=== PATIENT | male | born 1945 | race Caucasian/White ===

== ENCOUNTER 2016-09-15 14:24 | Observation (INO) ==
[2016-09-15] MEDS ORDERED: 0.9 % Sodium Chloride 500 ML IVC ONE ×2 (14:36→18:24)
[2016-09-15] MEDS ORDERED: Calcium Gluconate 1,000 MG in D5% in Water 100 ML IVPB ONE (14:40)
--- NOTE | 2016-09-15 14:46 | Emergency Department Note ---
Disposition Clinical Impression: Atrial fibrillation with rapid ventricular response, Cardiac pacemaker in situ , Hypomagnesemia, Neutrophilic leukocytosis Hypotension Qualifiers: Hypotension type: unspecified hypotension type Qualified Code(s): I95.9 - Hypotension, unspecified Chest pain Qualifiers: Chest pain type: unspecified Qualified Code(s): R07.9 - Chest pain, unspecified Chest pain Qualifiers: Chest pain type: unspecified Qualified Code(s): R07.9 - Chest pain, unspecified Hypotension Qualifiers: Hypotension type: unspecified hypotension type Qualified Code(s): I95.9 - Hypotension, unspecified Disposition: Admitted As Inpatient Condition: Fair Time of Disposition: 19:15 Arrhythmia/Palpitations HPI - General Chief Complaint: ED Chest Pain Stated Complaint: "afib" Time Seen by Provider: 09/15/16 14:35 Source: patient, EMS Mode of arrival: EMS Limitations: no limitations Nursing Notes Reviewed: Yes Vital Signs Reviewed: Yes - History of Present Illness HPI Narrative: 71-year-old male with past medical history of chronic atrial fibrillation with the pacemaker presents to the ED for chest pain and palpitations. This occurred this morning he woke up. 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 He normally takes metoprolol for rate control. From different sources it appears he has been without it today and possibly last night. He also takes Coumadin for anticoagulation however has been without it for the past few days due to a possible procedure for his back. He has associated shortness of breath, lightheadedness, nausea. He also reports having a cough over the past several days with rhinorrhea but no fever. Denies any history of stroke or blood clots. He follows with Dr. Jerez automotive worker foreman. Pt Subjective Complaint: rapid heart beat, "heart racing", palpitations Onset (ago): hour(s) Duration: constant Severity: moderate Context: occurred during rest, awoke with symptoms Arrhythmia History: atrial fibrillation, pacemaker, history of ablation Associated symptoms: Reports: denies other symptoms, chest pain, shortness of breath, near-syncope - Related Data Home Medications Medication Instructions Recorded Confirmed Aspirin 81 mg PO DAILY 06/27/16 09/15/16 Atorvastatin [Lipitor] 40 mg PO HS 06/27/16 09/15/16 Ferrous Sulfate [Iron] 325 mg PO DAILY 06/27/16 09/15/16 Pyridoxine HCl [Vitamin B-6] 25 mg PO DAILY 06/27/16 09/15/16 Warfarin Sodium [Warfarin Sodium] 5 mg PO SUTUTH 08/03/16 09/15/16 Pantoprazole Sodium [Protonix] 40 mg PO DAILY 09/15/16 09/15/16 Warfarin [Coumadin] 7.5 mg PO MOWEFRSA 09/15/16 09/15/16 Previous Rx's Medication Instructions Recorded Metoprolol [Lopressor] 100 mg PO BID #30 07/20/16 Diltiazem CD (24hr) [Cardizem CD] 120 mg PO DAILY #60 cap.er.24h 07/30/16 Allergies Allergy/AdvReac Type Severity Reaction Status Date / Time Sulfa (Sulfonamide Allergy Rash Verified 08/03/16 09:30 Antibiotics) All systems ED: reviewed and negative except as stated. Constitutional: Denies: fever, chills, weakness Cardiovascular: Reports: chest pain, palpitations, dyspnea on exertion Respiratory: Reports: cough, dyspnea Gastrointestinal: Reports: nausea. Denies: abdominal pain, vomiting, diarrhea, melena, hematochezia Genitourinary: Denies: urgency, dysuria Integumentary: Denies: rash, abrasion Past Medical History - Past Medical History Attestation: Yes The following information was validated with the patient. Source: patient Medical history: Reports: atrial fibrillation, COPD, CVA, hyperlipidemia, hypertension Surgical history: Reports: non-contributory, orthopedic, other, pacemaker/AICD Psychiatric history: Reports: no psych history - Social History Smoking Status: Current every day smoker Smokeless Tobacco Status: No Alcohol use: Reports: heavy Drug use: Reports: none Physical Exam - General Limitations: no limitations General appearance: alert, anxious - Head Head exam: atraumatic, normocephalic, normal inspection - Eye Eye exam: Present: normal appearance, PERRL, EOMI - ENT ENT exam: normal exam, normal oropharynx, mucous membranes dry - Neck Neck exam: Present: normal inspection, full ROM, trachea midline - Chest Chest inspection: Present: normal inspection, symmetric chest wall rise - Respiratory Respiratory exam: Present: normal lung sounds bilaterally, respiratory distress. Absent: wheezes - Cardiovascular Cardiovascular exam: Present: tachycardia, irregular rhythm, normal heart sounds - Abdominal Exam Abdominal exam: Present: soft, Non-Tender, normal bowel sounds. Absent: tenderness, distention, guarding, rebound, rigidity - Extremities Exam Extremities exam: Present: normal inspection, full ROM, normal capillary refill. Absent: tenderness, pedal edema, calf tenderness - Neurological Exam Neurological exam: Present: alert, oriented X3 - Psychiatric Psychiatric exam: Present: normal affect, normal mood - Skin Skin exam: Present: warm, dry, intact, normal color Course Course Narrative: 71-year-old male with a history of atrial fibrillation presents today EMS for chest pain palpitations. History of this more frequently 3 times last few months. He was found to be in atrial fibrillation with rapid ventricular response 173 bpm, he is hypotensive 96/76 but is mentating well. Reports not taking his rate control metoprolol and Cardizem yesterday and today. He also reports drinking a heavy amount of alcohol last night up to 12 beers. Denies any fevers but has been getting over a cold the past few days. A physical exam his heart is irregularly irregular. Lungs are clear to auscultation bilaterally. Legs are non-edematous. Will try to rate control him with Cardizem 20 mg bolus and start on a drip of 5 mg/hr as well as give a fluid bolus. Will give Calcium gluconate 1 g to help counteract the hypotensive effects with his current BP. He does not appear to be in acute heart failure. - Reevaluation(s) Reevaluation #1: Magnesium is low, will replete. He also has elevated WBC 23.4 without an obvious source. With the tachycardia and hypotension will initiate SIRS and get urine and blood cultures with lactate. He appears well perfused and will continue to give fluids. CXR does not reveal any infectious process, concern for opacity in the left lobe called as atelectasis. Time: 16:53 Reevaluation #2: We attempted to uptritate Cardizem to 10 mg/hr due to the sustained HR 160-180s , however, after a total of 1.5-2L he continues to be hypotensive as low as 79/ 68 now, will cut back to 5 mg/hr and consult cardiology Dr. Jerez, who is also his automotive worker foreman. Last ECHO 07/29/16 EF 55%. He has had a total of 1.5 L Normal saline and likely 2 L with additional to medications and magnesium. Lactate 1.4. CXR did not reveal any infectious pulmonary process. Will hold on antibiotics. Continue to fluid resuscitate Time: 17:42 Reevaluation #3: After an additional 1L bolus for almost a total of 3+L, his BP has gradual risen to 129/90, will uptitrate accordingly, HR now at 140-150. Currently drip is at 10 mg/hr. Patient admitted to hospitalist. He appears much improved with better BP control, fluids, and food as he has not eaten all day. Time: 19:13 - Consultations Consultation #1: Spoke to the automotive worker foreman Dr. Jerez, discuss the current situation with the patient. He continues to be tachycardic and the 170s with his blood pressure ranging from 90s to 70s systolic after IV fluid boluses in conjunction with Cardizem bolus of 20 mg and a drip going from 5 to 10 and back to 5 due to hypotension 79-68. I discussed the possibility of cardioversion but he recommends rate controlling with max Cardizem up to 15 mg/hr and then possibly adding Amiodarone. I reiterated the hypotension and he states to give Cardizem and longer chance. Time: 18:05 Consultation #2: Spoke with trena Oliver to admit for Afib c RVR. He is aware of patient's hemodynamics. Time: 19:14 Vital Signs Temperature 98.7 F 09/15/16 14:28 Pulse Rate 183 09/15/16 14:28 Respiratory Rate 22 09/15/16 14:28 Blood Pressure 96/76 09/15/16 14:28 O2 Sat by Pulse Oximetry 95 09/15/16 14:28 Temperature 98.7 F 09/15/16 14:28 Pulse Rate 157 09/15/16 19:30 Respiratory Rate 18 09/15/16 19:30 Blood Pressure 110/92 09/15/16 19:30 O2 Sat by Pulse Oximetry 95 09/15/16 19:30 Oxygen Delivery Oxygen Delivery Room Air Arrhythmia/Palpitations - Medical Records Medical records reviewed: Yes I reviewed the patient's medical records. - Lab Data Lab results reviewed: Yes I reviewed the patient's lab results. Result diagrams: 09/15/16 15:42 09/15/16 15:16 Lab Results 02/09/15/16 09/15/16 Range/Units 15:16 15:16 15:42 WBC 23.4 H (4.3-11.1) K/mcL RBC 4.11 L (4.19-5.50) M/mcL Hgb 11.2 L (12.9-16.9) g/dL Hct 34.3 L (37.5-50.1) % MCV 83.5 (83.0-100.0) fL MCH 27.3 L (28.0-33.3) pg MCHC 32.7 (31.6-35.5) g/dL RDW 20.9 H (11.5-14.5) % Plt Count 197 (140-400) K/mcL MPV 9.1 L (9.4-12.4) fL Seg Neutrophils % 40.0 % Band Neutrophils % 38.0 H (0-4) % Lymphocytes % 14.0 % Monocytes % 8.0 % Neutrophils # 18.3 H (1.6-8.9) K/mcL Lymphocytes # 3.3 (0.6-4.6) K/mcL Monocytes # 1.9 H (0.0-1.3) K/mcL Platelet Estimate Normal (Normal) PT (9.4-12.1) Seconds INR APTT (26.0-36.0) Seconds Sodium 137 (136-145) mEq/L Potassium 3.5 (3.5-4.5) mEq/L Chloride 108 (98-109) mEq/L Carbon Dioxide 20 (19-29) mEq/L BUN 12 (8-26) mg/dL Creatinine 0.70 L (0.72-1.25) mg/dL Est GFR ( Amer) > 60 (> 60) Est GFR (Non-Af Amer) > 60 (> 60) BUN/Creatinine Ratio 17 (6-26) Glucose 109 H (70-99) mg/dL Calculated Osmolality 284 (280-300) Lactic Acid (0.5-2.2) mmol/L Calcium 8.5 L (8.6-10.8) mg/dL Magnesium 1.2 L (1.6-2.6) mg/dL Troponin I 0.02 (0-0.03) ng/mL TSH 0.562 (0.350-4.840) mcIU/mL 02/16/17 02/16/17 Range/Units 15:42 17:59 WBC (4.3-11.1) K/mcL RBC (4.19-5.50) M/mcL Hgb (12.9-16.9) g/dL Hct (37.5-50.1) % MCV (83.0-100.0) fL MCH (28.0-33.3) pg MCHC (31.6-35.5) g/dL RDW (11.5-14.5) % Plt Count (140-400) K/mcL MPV (9.4-12.4) fL Seg Neutrophils % % Band Neutrophils % (0-4) % Lymphocytes % % Monocytes % % Neutrophils # (1.6-8.9) K/mcL Lymphocytes # (0.6-4.6) K/mcL Monocytes # (0.0-1.3) K/mcL Platelet Estimate (Normal) PT 19.6 H (9.4-12.1) Seconds INR 1.8 APTT 29.3 (26.0-36.0) Seconds Sodium (136-145) mEq/L Potassium (3.5-4.5) mEq/L Chloride (98-109) mEq/L Carbon Dioxide (19-29) mEq/L BUN (8-26) mg/dL Creatinine (0.72-1.25) mg/dL Est GFR ( Amer) (> 60) Est GFR (Non-Af Amer) (> 60) BUN/Creatinine Ratio (6-26) Glucose (70-99) mg/dL Calculated Osmolality (280-300) Lactic Acid 1.4 (0.5-2.2) mmol/L Calcium (8.6-10.8) mg/dL Magnesium (1.6-2.6) mg/dL Troponin I (0-0.03) ng/mL TSH (0.350-4.840) mcIU/mL - Radiology Data Radiology results reviewed: Yes I reviewed the patient's radiology results. Chest X-Ray 09/15/16 14:36 IMPRESSION: Bibasilar atelectasis. Otherwise no acute cardiopulmonary findings. D/ / Sarina Marquis MD / Sarina Marquis MD Interpreting Provider: Sarina Marquis MD - EKG Data EKG attestation: Yes I reviewed and interpreted this EKG. EKG results narrative: EKG performed 1430 shows atrial fibrillation with rapid ventricular response 193 bpm, there are some moderate ST depressions in the precordial leads V3-V6. Compared to old EKG performed 07/28/2016 shows underlying atrial flutter/atrial tachycardia rate 129. Attestation Statement - Attestation Attestation: I examined this patient and my medical decision-making was reviewed with the MEASUREMENT ANALYST/PA/Advanced Practice Nurse/Resident Physician. I agree with the documented findings, disposition and treatment plan as described except to the extent set forth below. 71-year-old male presents to the ED by EMS because of tachycardia. He has had palpitations since awaking this morning. This is associated with a vague chest discomfort and tightness. Denies associated resting dyspnea. He has had recent cold symptoms with mild nonproductive cough. No fevers, chills or rigors. No vomiting or diarrhea. No abdominal pain. He does have chronic low back pain and is in the process of being prepared for spinal injections. He has history of atrial fibrillation and normally takes Coumadin but has been off it for 2 days in preparation for the injections. Complains of mild exertional dyspnea. No other recent change in medications. He admits to drinking 12 beers last night. He does drink alcohol on a fairly regular basis. Pleasant elderly male in no apparent distress.Tachycardic. Heart rate is irregular. Oropharynx is clear mucous membranes dry. Neck supple without meningeal signs. Chest clear to auscultation all lung ashley. Cardiac exam tachycardic irregular no murmurs pursued. Chest wall nontender. Abdomen soft nondistended nontender. Flanks are nontender. Abdomen soft and nontender. Extremities well perfused, warm and dry. Mental status is intact. He has brisk perfusion of his digits. EKG is a atrial fibrillation with rapid ventricular response with a rate of 190. Chest x-ray with mild basilar atelectasis but no focal infiltrate. Significant leukocytosis with bandemia. No source of infection is identified, urinalysis still pending. He was given sequential IV fluid boluses of saline and started on Cardizem. Initial Cardizem was titrated up to 10 mg an hour result resulting in hypotension with blood pressure 79/60. This was confirmed by manual blood pressure. He dropped the Cardizem to 5 mg an hour and continue with further fluid. Ultimately after 3 L of crystalloid his blood pressure stabilized and able to titrate his Cardizem for better rate control. Continue with heart rate of 150 at the time of admission. Unable to explain the current leukocytosis. Still has no fever. He will be admitted to hospitalist for ongoing treatment and further evaluation. The high probability of a clinically significant, sudden or life threatening deterioration of the [cardiovascular] system(s) required my full and direct attention, intervention and personal management. The aggregate critical care time was [50] minutes. This time is in addition to time spent performing reported procedures but includes the following: [x] Data Review and interpretation [x] Patient assessment and monitoring of vital signs [x] Documentation [x] Medication orders and management
[2016-09-15 15:46] LABS: BUN/Creatinine Ratio 17 (6-26); Blood Urea Nitrogen 12 mg/dL (8-26); Calcium 8.5 mg/dL (8.6-10.8); Carbon Dioxide 20 mEq/L (19-29); Chloride 108 mEq/L (98-109); Glucose 109 mg/dL (70-99); Magnesium 1.2 mg/dL (1.6-2.6); Osmolality,Calculated 284 (280-300); Potassium 3.5 mEq/L (3.5-4.5); Sodium 137 mEq/L (136-145); eGFR For African Americans > 60 (> 60); eGFR For Non-African Americans > 60 (> 60)
[2016-09-15 16:08] LABS: Thyroid Stimulating Hormone 0.562 mcIU/mL (0.350-4.840)
[2016-09-15 16:27] LABS: Hematocrit 34.3 % (37.5-50.1); Hemoglobin 11.2 g/dL (12.9-16.9); Mean Corpuscular HGB Conc 32.7 g/dL (31.6-35.5); Mean Corpuscular Hemoglobin 27.3 pg (28.0-33.3); Mean Corpuscular Volume 83.5 fL (83.0-100.0); Mean Platelet Volume 9.1 fL (9.4-12.4); Platelet Count 197 K/mcL (140-400); Red Blood Count 4.11 M/mcL (4.19-5.50); Red Cell Distribution Width 20.9 % (11.5-14.5)
[2016-09-15 16:33] LABS: INR 1.8; Prothrombin Time 19.6 Seconds (9.4-12.1)
[2016-09-15 16:35] LABS: Activated Partial Thrombo Time 29.3 Seconds (26.0-36.0)
[2016-09-15 16:49] LABS: Lymphocytes # 3.3 K/mcL (0.6-4.6); Monocytes # 1.9 K/mcL (0.0-1.3); Neutrophils # 18.3 K/mcL (1.6-8.9); Platelet Estimate Normal (Normal)
[2016-09-15] MEDS ORDERED: 0.9 % Sodium Chloride 1,000 ML IVC ONE (16:58)
[2016-09-15 22:50] LABS: Bilirubin,Urine Negative (Negative); Blood,Urine Negative (Negative); Clarity,Urine Clear (Clear); Color,Urine Yellow (Yellow); Glucose,Urine (UA) Normal (Normal); Ketones,Urine Negative (Negative); Leukocyte Esterase,Urine Negative (Negative); Nitrite,Urine Negative (Negative); PH,Urine 6.5 pH Units (5.0-8.0); Protein,Urine Negative (Neg-Trace); Specific Gravity,Urine 1.015 (1.010-1.025); Urobilinogen,Urine Normal (Normal)
[2016-09-15] MEDS ORDERED: *HR* Metoprolol 5 MG/5 ML VIAL IVP ONE (23:25)
[2016-09-15] MEDS ORDERED: Naloxone 0.4 MG/ML INJ IVP PRN (23:55)
[2016-09-15] MEDS ORDERED: Acetaminophen 325 MG TABLET PO PRN (23:55)
[2016-09-15] MEDS ORDERED: Ondansetron 4 MG/2 ML VIAL IVP PRN (23:55)
[2016-09-16] MEDS: 0.9 % Sodium Chloride 1,000 ML IVC SCH ×3 (01:15→22:10)
[2016-09-16] MEDS: *HR* HYDROcodone/Acet 5/325 mg TABLET PO PRN ×2 (01:26→11:06)
--- NOTE | 2016-09-16 04:22 | Internal Med History&Physical ---
Date of Encounter: 09/16/16 Time of Encounter: 01:00 Assessment and Plan (1) Atrial flutter with rapid ventricular response Current visit: Yes Status: Acute The patient initially presented and atrial fibrillation with rapid ventricular response. After administration of IV Cardizem his weight changed to atrial flutter with fixed 2/1 transmission. At this point a consideration would be administering adenosine to decrease the conduction and possibly to slow down the ventricular rate. Another consideration would be adding a beta clarence. I have started IV metoprolol in addition to the diltiazem since the blood pressure was maintained around 126 systolic. After administration of IV metoprolol and increasing the Cardizem dosing to 15 mg per hour heart rate slowed down to 104 and therefore adenosine was not given. Blood pressure is on the low side however in the map is above 65. The cause of rapid ventricular response could be medication related. It appears the patient did not take his diltiazem for the last 2 days. We will reinforce the need for medication compliance. (2) Anticoagulated on Coumadin Current visit: Yes Status: Acute Resumed home dose of warfarin. start 1.5 mg/kg Lovenox dosing for bridging while the INR is 2.0. (3) Essential hypertension Current visit: Yes Status: Acute Resume oral antihypertensive medication per home regimen. (4) Atrial fibrillation with rapid ventricular response Current visit: Yes Status: Acute The patient initially presented with atrial fibrillation with rapid ventricular response. IV diltiazem as needed given. When I was examining the patient and the heart rate was still greater than 150. I increased diltiazem rate infusion to 15 mg and added IV metoprolol. Heart rate has not dropped below 100 between 90 and 100. The patient is currently chest pain-free. We will continue to trend troponins to rule out ACS as a possible cause or consequence of the very high ventricular rate. We will consult cardiology. Maintain the patient on telemetry. Obtain echocardiogram. The patient is unstable and there is high probability of significant clinical decompensation with potential impairment of organ function including cardiovascular and respiratory systems. I have performed 40 minutes of critical care time which involved decision making of high complexity to assess, manipulate, and support vital organ system, in order to prevent further life threatening deterioration of the patient's condition. The time involved in the performance of any procedures was not counted toward critical care time and will be billed separately. Critical care time was spent evaluating the patient, reviewing EKGs, telemetry tracing, imaging studies and laboratory data, ordering medications and reevaluating for clinical response after medication administration. (5) Hypomagnesemia Current visit: Yes Status: Acute Replete potassium and magnesium. Check and replete electrolytes in the morning. (6) Tobacco abuse Current visit: No Status: Chronic I have advised smoking cessation and provided counseling. Internal Medicine - H&P: HPI Chief complaint: Palpitations Admitted From: Emergency Dept Plans for Post Hospital Care: Home History of present illness: Mr. Kwok is a 71 year old male with past medical history significant for hypertension and atrial fibrillation on anticoagulation with Coumadin who presented to the hospital for chest pain. The patient reports that chest pain started earlier today, at rest was dull and moderate located in the left side of the chest and associated with palpitations and heart racing, lightheadedness and nausea. Upon evaluation in the emergency department his heart rate was up to 195. He was given IV Cardizem and was referred for admission. A 10 point review of systems was negative except as above Family history was negative for premature coronary artery disease and familial cancers. Patient congested smoke 1 pack of cigarettes a day, denies alcohol abuse and intravenous drug use. Past Med Surg Social Fam HX - Past Medical History Medical history: atrial fibrillation, COPD, CVA, hyperlipidemia, hypertension Psychiatric history: no psych history - Past Surgical History Surgical History: non-contributory, orthopedic, other, pacemaker/AICD - Social History Smoking Status: Current every day smoker Packs per day: 1 pk a day Smokeless Tobacco Status: No Alcohol use: heavy Drug use: none - Family History Mother Name: Mary Kwok Age: 64 Living Status: Age at : 64 Cause of : bowel rupture and gangrene set in and she didn't make it thru the night per Hx Family Endocrine Disorder: Yes Hx Family Medical Disorders: (bowel rupture and gangreen set in) Father Name: Phani Kwok Living Status: Age at : 82 Hx Family Cancer: Yes Hx Family Medical Disorders: Yes (alzheimer) Internal Medicine - H&P: Meds Aspirin 81 mg PO DAILY 06/27/16 [History] Atorvastatin [Lipitor] 40 mg PO HS 06/27/16 [History] Ferrous Sulfate [Iron] 325 mg PO DAILY 06/27/16 [History] Pyridoxine HCl [Vitamin B-6] 25 mg PO DAILY 06/27/16 [History] Metoprolol [Lopressor] 100 mg PO BID #30 07/20/16 [Rx] Diltiazem CD (24hr) [Cardizem CD] 120 mg PO DAILY #60 cap.er.24h 07/30/16 [Rx] Warfarin Sodium [Warfarin Sodium] 5 mg PO SUTUTH 08/03/16 [History] Pantoprazole Sodium [Protonix] 40 mg PO DAILY 09/15/16 [History] Warfarin [Coumadin] 7.5 mg PO MOWEFRSA 09/15/16 [History] Allergies Sulfa (Sulfonamide Antibiotics) Allergy (Verified 08/03/16 09:30) Rash All Systems PM: A 10-system review of systems was performed and is negative for pertinent findings except as documented above in the HPI. - Constitutional Vitals: Temp Pulse Resp BP Pulse Ox 97.9 F 88 18 130/68 93 L 09/16/16 04:02 09/16/16 04:02 09/16/16 04:02 09/16/16 04:02 09/16/16 04:02 - Eye Eye exam: Present: PERRL, conjuntiva pink, sclera anicteric Pupils: Present: PERRL - Neck Neck exam general surgery: Present: supple, trachea midline. Absent: lymphadenopathy - Respiratory Respiratory exam: Present: CTAB. Absent: accessory muscle use, rales, rhonchi, wheezes - Cardiovascular Cardiovascular exam: Present: irregular rhythm, +S1, +S2, tachycardia. Absent: diastolic murmur, gallop, rubs, systolic murmur - GI/Abdominal GI/Abdominal exam: Present: normal bowel sounds, soft, no peritoneal signs. Absent: distended, tenderness - Extremities Exam Extremities exam: Present: warm, radial pulses palpable and symetrical. Absent : calf tenderness, cyanotic, pedal edema - Skin Skin exam: Present: dry, intact Internal Med - H&P Results - Labs CBC & Chem 7: 09/15/16 15:42 09/15/16 15:16 Labs: Cardiac Enzymes 09/16/16 Range/Units 01:00 Troponin I 0.04 H* (0-0.03) ng/mL - EKG Data -: EKG Interpreted by Myself - Impressions Initial EKG, per my review shows atrial fibrillation with rapid ventricular response rate 196 and rate-related ST depressions diffusely. Repeat EKG after starting IV Cardizem drip shows atrial flutter 2/ transmission rate 150., Telemetry monitoring reveals stable atrial flutter with 2 to one transmission.
[2016-09-16] MEDS ORDERED: *HR* Warfarin 7.5 MG TABLET PO SCH (05:00)
[2016-09-16] MEDS: *HR* Enoxaparin 80 MG/0.8 ML SYRINGE SQ SCH ×2 (05:30→11:09)
[2016-09-16] MEDS ORDERED: *HR* Metoprolol 5 MG/5 ML VIAL IVP SCH (06:00)
[2016-09-16 06:50] LABS: Basophils % 0.1 %; Eosinophils # 0.2 K/mcL (0.0-0.6); Eosinophils % 1.1 %; Hematocrit 31.4 % (37.5-50.1); Hemoglobin 10.1 g/dL (12.9-16.9); Immature Granulocytes % 0.4 % (0-4); Immature Platelets 2.2 % (1.1-6.1); Lymphocytes # 2.6 K/mcL (0.6-4.6); Mean Corpuscular HGB Conc 32.2 g/dL (31.6-35.5); Mean Corpuscular Hemoglobin 26.6 pg (28.0-33.3); Mean Corpuscular Volume 82.6 fL (83.0-100.0); Mean Platelet Volume 8.9 fL (9.4-12.4); Monocytes # 0.6 K/mcL (0.0-1.3); Monocytes % 4.4 %; Neutrophils # 10.1 K/mcL (1.6-8.9); Platelet Count 195 K/mcL (140-400); Red Cell Distribution Width 21.2 % (11.5-14.5)
[2016-09-16 07:02] LABS: BUN/Creatinine Ratio 18 (6-26); Blood Urea Nitrogen 12 mg/dL (8-26); Calcium 8.4 mg/dL (8.6-10.8); Carbon Dioxide 25 mEq/L (19-29); Chloride 108 mEq/L (98-109); Chol/HDL Ratio 2.7 (0-4.9); Cholesterol 109 mg/dL (< 200); Glucose 94 mg/dL (70-99); HDL Cholesterol 40 mg/dL (40-59); LDL Cholesterol,Calculated 60 mg/dL (0-99); Magnesium 1.6 mg/dL (1.6-2.6); Osmolality,Calculated 288 (280-300); Potassium 3.7 mEq/L (3.5-4.5); Sodium 139 mEq/L (136-145); Triglycerides 47 mg/dL (< 150); eGFR For African Americans > 60 (> 60); eGFR For Non-African Americans > 60 (> 60)
[2016-09-16] MEDS: Aspirin 81 MG TAB.CHEW PO SCH (09:04)
[2016-09-16] MEDS: Pantoprazole 40 MG VIAL IVP SCH (09:04)
--- NOTE | 2016-09-16 09:58 | Cardiology Consult Note ---
<Cayden Baker R - Last Filed: 09/16/16 11:07> Date of Encounter: 09/16/16 Time of Encounter: 09:54 Assessment and Plan (1) Atrial fib/flutter, transient Current Visit: Yes Status: Acute Known hx of PAF. Per pt, had ablation in the past at [facility]. Yesterday pt experienced left sided chest pain, dyspnea, palpitations, nausea, lightheadedness. Presented to ED and found to be in A-Fib RVR rate 190s on EKG. Given IV cardizem and reportedly went into 2:1 A-Flutter and scheduled IV Lopressor was ordered to help with rate control. Pt has been PAF overnight, but currently in A -Fib rates 80s-low 100s on Cardizem gtt at 10mg/hr. Home meds included Lopressor 100mg BID and Cardizem CD 120mg daily. Will increase PO Cardizem to 240mg daily and wean off gtt. Mag 1.2 on admission, replaced and now 1.6. Will replace to get closer to 2.0. TSH and K within normal range. Outpt encounter with EP, Dr. Saran Jerez reviewed from 07/2016--if recurrence of PAF, recommended antiarrhythmic initiation. Anticoaguated on Coumadin, INR 1.8. Coumadin has been on hold for 2 days due to upcoming spinal injections 09/21, which requires pt to be off anticoagulation for 7 days. Given his upcoming spinal injections and needing to be off anticoagulation, recommend rate control strategy for the time being then follow-up with Dr. Saran Jerez as outpt in 2 weeks to discuss stress test and direct admission for antiarrhythmic therapy. Continue to follow. Recent echo 06/2016 EF 55%. (2) Anticoagulated on Coumadin Current Visit: Yes Status: Acute INR 1.8--currently Coumadin on hold due to upcoming spinal injections 09/21. On therapeutic Lovenox. (3) Cardiac pacemaker in situ Current Visit: Yes Status: Chronic Last interrogation 09/08/16 showing PAF. (4) Tobacco abuse Current Visit: No Status: Chronic Smoking cessation counseling given. Discussion w patient/family: The assessment and plan as outlined above was discussed with the patient and/or family members who expressed understanding and agreement. All questions were answered. Thank you for involving us in the care of your patient. Please call with any questions. I will discuss all the above with Dr. Martinez and make changes as necessary. History of Present Illness Consult date: 09/16/16 Requesting physician: Terry Veloz Consult reason: A-Fib RVR Chief complaint: Dizziness/lightheadedness History of present illness: Mr. Kwok is a 71 year old male with PMH significant for hypertension, CVA and Paroxysmal A-Fib with hx of ablation s/p PPM anticoagulated kn Coumadin who presented to the hospital for chest pain, dizziness and lightheadedness. The patient reports that chest pain started yesterday, located in the left side of the chest and associated with palpitations and heart racing, lightheadedness and nausea. Upon evaluation in the emergency department his heart rate was up to 195. He was given IV Cardizem and admitted. Reportedly went into 2:1 Flutter after Cardizem. Was given IV Lopressor. Is currently on cardizem gtt at 10mg/hr, still with frequent PAF. HR 90s-low 100s. Mag was 1.2 on admission, now 1.6 after replacement. K 3.7, TSH 0.562. WBC was 23.4 on admission, 13.4 today. CXR and UA negative. Troponins 0.02, 0.04, 0.03. Chest pain free currently. No known hx of CAD. Negative stress test in 2011. Preserved EF on echo 2015. Last seen by Dr. Jerez 07/2016 at which time antiarrhythmic therapy was discussed if recurrence of PAF. Coumadin has been held for 2 days due to upcoming spinal injections scheduled with Dr. Muir. Past Med Surg Social Fam HX - Past Medical History Medical history: atrial fibrillation, COPD, CVA, hyperlipidemia, hypertension Psychiatric history: no psych history - Past Surgical History Surgical History: non-contributory, orthopedic, other, pacemaker/AICD - Social History Smoking Status: Current every day smoker Packs per day: 1 pk a day Smokeless Tobacco Status: No Alcohol use: heavy Drug use: none - Family History Mother Name: Mary Kwok Age: 64 Living Status: Age at : 64 Cause of : bowel rupture and gangrene set in and she didn't make it thru the night per Hx Family Endocrine Disorder: Yes Hx Family Medical Disorders: (bowel rupture and gangreen set in) Father Name: Phain Kwok Living Status: Age at : 82 Hx Family Cancer: Yes Hx Family Medical Disorders: Yes (alzheimer) Medications and Allergies Aspirin 81 mg PO DAILY 06/27/16 [History] Atorvastatin [Lipitor] 40 mg PO HS 06/27/16 [History] Ferrous Sulfate [Iron] 325 mg PO DAILY 06/27/16 [History] Pyridoxine HCl [Vitamin B-6] 25 mg PO DAILY 06/27/16 [History] Metoprolol [Lopressor] 100 mg PO BID #30 07/20/16 [Rx] Diltiazem CD (24hr) [Cardizem CD] 120 mg PO DAILY #60 cap.er.24h 07/30/16 [Rx] Warfarin Sodium [Warfarin Sodium] 5 mg PO SUTUTH 08/03/16 [History] Pantoprazole Sodium [Protonix] 40 mg PO DAILY 09/15/16 [History] Warfarin [Coumadin] 7.5 mg PO MOWEFRSA 09/15/16 [History] Allergies Sulfa (Sulfonamide Antibiotics) Allergy (Verified 08/03/16 09:30) Rash All Systems Review: A 10-system review of systems was performed and is negative for pertinent findings except as documented above in the HPI. - Cardiovascular Cardiovascular: as per HPI, chest pain at rest, dyspnea on exertion, irregular heart rhythm, lightheadedness, palpitations, rapid heart rate Physical Examination Vital Signs, Last 4 Hours Temp Pulse Resp BP Pulse Ox 09/16/16 08:10 98.2 F 91 14 107/85 95 Vital Signs Temp Pulse Resp BP Pulse Ox 09/16/16 08:10 98.2 F 91 14 107/85 95 09/16/16 05:30 83 103/57 95 09/16/16 05:15 81 125/67 09/16/16 05:00 76 106/66 09/16/16 04:02 97.9 F 88 18 130/68 93 L 09/16/16 02:22 98.0 F 102 18 125/84 95 09/15/16 22:55 115 105/66 09/15/16 22:40 151 119/77 09/15/16 22:25 128/97 09/15/16 22:23 156 128/97 98 09/15/16 21:50 95 09/15/16 21:29 98.2 F 154 15 101/72 97 09/15/16 20:10 18 110/92 09/15/16 19:30 157 18 110/92 95 09/15/16 19:00 150 18 129/90 97 09/15/16 18:36 149 18 114/86 99 09/15/16 17:53 153 18 98/78 96 09/15/16 17:30 153 18 98/78 95 09/15/16 17:00 159 18 104/85 95 09/15/16 16:41 148 18 104/69 96 09/15/16 16:30 160 18 96/73 96 09/15/16 16:00 158 18 104/85 96 09/15/16 15:31 159 18 102/92 93 L 09/15/16 15:01 127 18 109/72 92 L 09/15/16 14:43 188 18 96/76 96 09/15/16 14:39 97 09/15/16 14:28 98.7 F 183 22 96/76 95 Intake and Output 09/15/16 09/16/16 09/16/16 23:59 07:59 15:59 Intake Total 610 / 610 207.9 / 207.9 Output Total 290 / 290 1300 / 1300 Balance 320 / 320 -1092.1 / -1092.1 Intake: IV Fluids 610 / 610 207.9 / 207.9 0.9 % Sodium Chloride 500 500 / 500 ML @ 1875 mls/hr IVC . Q16M ONE Rx#:[id number] Cardizem 125 MG In 207.9 / 207.9 Dextrose 5% 100 ML @ 10 MG/HR 10 mls/hr IVC . [id number] [facility] Rx#: [id number] Calcium Gluconate 1,000 110 / 110 MG In Dextrose 5% 100 ML @ 220 mls/hr IVPB ONCE ONE Rx#:[id number] Oral 0 / 0 0 / 0 Output: Urine 290 / 290 1300 / 1300 Other: # Voids 0 Weight 79.2 kg General: Conversant, No Apparent Distress HEENT: Atraumatic, Normocephaly, Mucus Membranes Moist Neck: No JVD, Normal carotid pulses Cardiac: Other (irregularly irregular) Lungs: Normal Breath Sounds, No Wheeze, Rales, Rhonchi Neuro: Alert and responsive, No focal deficits noted Abdomen: Soft, Non-Tender Skin: No rashes noted on visualized skin Musculoskeletal: No Chest Wall Tenderness Extremities: No Clubbing, No Cyanosis, No Edema, Normal Pulses Results 09/16/16 06:25 09/16/16 06:25 Lab Results 09/16/16 09/16/16 09/16/16 01:00 06:25 06:25 WBC 13.4 H Hgb 10.1 L Hct 31.4 L Plt Count 195 Sodium 139 Potassium 3.7 Chloride 108 Carbon Dioxide 25 BUN 12 Creatinine 0.67 L Glucose 94 Calcium 8.4 L Magnesium 1.6 Troponin I 0.04 H* B-Natriuretic Peptide 09/16/16 09/16/16 06:25 06:25 WBC Hgb Hct Plt Count Sodium Potassium Chloride Carbon Dioxide BUN Creatinine Glucose Calcium Magnesium Troponin I 0.03 B-Natriuretic Peptide 341 H Impressions Chest X-Ray 09/15/16 14:36 IMPRESSION: Bibasilar atelectasis. Otherwise no acute cardiopulmonary findings. D/ / Sarina Marquis MD / Sarina Marquis MD Interpreting Provider: Sarina Marquis MD Active Medications Acetaminophen (Tylenol) 650 mg PO Q6HR PRN PRN Reason: Mild Pain (1-3) Stop: 03/17/17 23:56 Acetaminophen/Hydrocodone Bitart ([place] 5-325 Mg) 1 tab PO Q4HR PRN PRN Reason: Moderate Pain (4-6) Stop: 03/17/17 23:56 Last Admin: 09/16/16 01:26 Dose: 1 tab Aspirin (Aspirin) 81 mg PO DAILY [facility] Stop: 03/18/17 09:01 Last Admin: 09/16/16 09:04 Dose: 81 mg Enoxaparin Sodium (Lovenox) 80 mg 1 mg/kg (80 mg) SQ Q12HR [facility] PRN Reason: Protocol Stop: 03/18/17 06:01 Last Admin: 09/16/16 05:30 Dose: Not Given Diltiazem HCl 125 mg/ Dextrose 125 mls @ 10 mls/hr IVC .[id number] C[facility]IDA PRN Reason: 10 MG/HR Stop: 03/17/17 14:46 Last Infusion: 09/16/16 05:27 Dose: 10 mg/hr, 10 mls/hr Sodium Chloride (0.9 % Sodium Chloride) 1,000 mls @ 100 mls/hr IVC .Q10H C[facility]IDA Stop: 03/17/17 23:46 Last Admin: 09/16/16 01:15 Dose: 100 mls/hr Levofloxacin (Levaquin) 500 mg PO ONCE ONE PRN Reason: Protocol Stop: 09/16/16 10:12 Metoprolol Tartrate (Lopressor) 100 mg PO BID [facility] Stop: 03/18/17 09:46 Naloxone HCl (Narcan) 0.4 mg IVP Q2MIN PRN PRN Reason: Opioid Reversal Stop: 03/17/17 23:56 Ondansetron HCl (Zofran) 4 mg IVP Q8HR PRN PRN Reason: Nausea And Vomiting Stop: 03/17/17 23:56 Pantoprazole Sodium (Protonix) 40 mg IVP DAILY [facility] Stop: 03/18/17 09:01 Last Admin: 09/16/16 09:04 Dose: 40 mg Warfarin Sodium (Coumadin) 7.5 mg PO MOWEFRSA [facility] Stop: 03/18/17 05:01 Last Admin: 09/16/16 05:29 Dose: Not Given Warfarin Sodium (Coumadin) 5 mg PO SUTUTH [facility] Stop: 03/20/17 18:01 - Imaging and Cardiology Chest Xray: report reviewed Stress Test: report reviewed (2011 negative for ischemia or infarct) Echo: report reviewed (06/2016 EF 55%, no significant valvular dysfunction, mildly dilated left and right atrium.) - EKG Interpretation EKG results cardiology: personally reviewed (A-Fib rate 190s), other (24 hour tele AVG HR 102, PAF) Consult Discharge Plan - Plan Referrals: Cornelia Swanson MD [Primary Care Provider] - <Araceli Martinez - Last Filed: 09/16/16 11:18> Date of Encounter: 09/16/16 Assessment and Plan Discussion w patient/family: The assessment and plan as outlined above was discussed with the patient and/or family members who expressed understanding and agreement. All questions were answered. Thank you for involving us in the care of your patient. Please call with any questions. History of Present Illness History of present illness: Mr. Kwok is a 71 year old male All Systems Review: A 10-system review of systems was performed and is negative for pertinent findings except as documented above in the HPI. Physical Examination Vital Signs, Last 4 Hours Temp Pulse Resp BP Pulse Ox 09/16/16 08:10 98.2 F 91 14 107/85 95 Results 09/16/16 06:25 09/16/16 06:25 Lab Results 09/16/16 09/16/16 09/16/16 01:00 06:25 06:25 WBC 13.4 H Hgb 10.1 L Hct 31.4 L Plt Count 195 Sodium 139 Potassium 3.7 Chloride 108 Carbon Dioxide 25 BUN 12 Creatinine 0.67 L Glucose 94 Calcium 8.4 L Magnesium 1.6 Troponin I 0.04 H* B-Natriuretic Peptide 09/16/16 09/16/16 06:25 06:25 WBC Hgb Hct Plt Count Sodium Potassium Chloride Carbon Dioxide BUN Creatinine Glucose Calcium Magnesium Troponin I 0.03 B-Natriuretic Peptide 341 H - Attending Attestation I examined this patient and my medical decision-making was reviewed with the NEON TUBE PUMPER/PA/Advanced Practice Nurse/Resident Physician. I agree with the documented findings, disposition and treatment plan. Mr. Kwok presents with AF, RVR now with improved heart rate control. Antiarrhythmic therapy was recently discussed with his Dampener Operator as an outpatient and we discussed this as an option while hospitalized. However, he has an upcoming procedure, spinal injections and will be off of anticoagulation for this. We therefore recommend rate control for now. He will then follow up with Dr. Saran Jerez as an outpatient for further management.
[2016-09-16] MEDS ORDERED: levoFLOXacin 500 MG TABLET PO ONE (10:11)
--- NOTE | 2016-09-16 10:18 | Internal Med Progress Note ---
<Hayden Escobar - Last Filed: 09/16/16 13:45> Date of Encounter: 09/16/16 Time of Encounter: 10:18 - Assessment and plan (1) Chest pain Current Visit: Yes Status: Resolved Assessment and plan: 7-year-old male history of A. fib, CVA, hyperlipidemia, hypertension. Patient was found to be in A. fib RVR with rates in the 190s on EKG. He was started on IV Cardizem which decreased his rate below 100. However he continues to still be in paroxysmal A. fib. Patient's chest pain, nausea, dyspnea resolved. His troponins were trended and found to be normal. Recent echo on June 2016 shows EF of 55%. Patient also presented with magnesium 1.2 which is being replaced. Furthermore his TSH and potassium were within normal limits. His lipid panel shows LDL cholesterol to be 60. Chest pain was most likely secondary to A. fib RVR. After rate was controlled his chest pain resolved. Cardiology is on board. Appreciate input. Patient is scheduled for stress test. Qualifiers: Chest pain type: unspecified Qualified Code(s): R07.9 - Chest pain, unspecified (2) Leukocytosis Current Visit: Yes Status: Acute Assessment and plan: Patient came in with white blood cell count 22. He denied any fevers chills at home. On physical exam there is no sign of infection of the skin. He did state he had a cold and productive cough. Urinalysis was negative for infection. Furthermore he had bandemia of 38%. His leukocytosis could partially be explained by stress reaction, however with such a high white blood cell count there may be a second infectious process. Both cultures have been ordered. Currently patient is being treated with Levaquin for possible acquired pneumonia. Furthermore patient has been checked for influenza. Results pending. Qualifiers: Leukocytosis type: bandemia Qualified Code(s): D72.825 - Bandemia (3) Community acquired pneumonia Current Visit: Yes Status: Suspected Assessment and plan: Regular treating patient with Levaquin as he stated this for admission having productive cough and upper respiratory tract infection. Patient has white blood cell count of 13.4. This is decreased from yesterday. If blood cultures are negative we will discontinue antibiotics. Repeat CBC tomorrow. (4) Atrial fibrillation with rapid ventricular response Current Visit: Yes Status: Resolved Assessment and plan: While patient continues to be in a proximal A. fib, his heart rate is below 100. Heart rate was controlled by Cardizem drip. He was transitioned to by mouth Cardizem and metoprolol. Patient is not on Coumadin currently due to scheduled spinal injections on 09/21. He is being anticoagulated with therapeutic Lovenox. (5) Essential hypertension Current Visit: Yes Status: Acute Assessment and plan: Patient's blood pressure has been stable. We will continue his metoprolol diltiazem. (6) Hypomagnesemia Current Visit: Yes Status: Acute Assessment and plan: On presentation patient's magnesium was 1.2. Today patient's magnesium 1.6. His potassium has been within normal limits. We will continue to follow. (7) DVT prophylaxis Current Visit: No Status: Acute Assessment and plan: Lovenox SQ (8) Hyperlipidemia Current Visit: No Status: Chronic Assessment and plan: Continue patient's on simvastatin. Patient's LDL is 60. He is at his goal of below 70. Qualifiers: Hyperlipidemia type: unspecified Qualified Code(s): E78.5 - Hyperlipidemia , unspecified - Subjective Interval history: 71-year-old male with past medical history of hypertension, CVA, paroxysmal A. fib with history of ablation, anticoagulated on Coumadin, admitted to the hospital for A. fib RVR and chest pain. His chest pain was left-sided associated with nausea, vomiting. This morning patient is on Cardizem running at 10 mg an hour with a heart rate below 100. He reports improvement in chest pain, nausea, vomiting. His EKG did not show any ischemic changes. And all 3 troponins were normal. - Constitutional Vitals: Temp Pulse Resp BP Pulse Ox 98.2 F 91 14 107/85 95 09/16/16 08:10 09/16/16 08:10 09/16/16 08:10 09/16/16 08:10 09/16/16 08:10 - Head Head exam: Present: atraumatic, normocephalic - Eye Eye exam: Present: PERRL, conjuntiva pink, sclera anicteric - Neck Neck exam general surgery: Present: supple, trachea midline. Absent: lymphadenopathy - Respiratory Respiratory exam: Present: CTAB. Absent: accessory muscle use, rales, rhonchi, wheezes - Cardiovascular Cardiovascular exam: Present: irregular rhythm, +S1, +S2. Absent: diastolic murmur, gallop, rubs, systolic murmur - GI/Abdominal GI/Abdominal exam: Present: normal bowel sounds, soft, no peritoneal signs. Absent: distended, tenderness - Extremities Exam Extremities exam: Present: warm, radial pulses palpable and symetrical. Absent : calf tenderness, cyanotic, pedal edema - Neurological Exam Neurological exam: Present: CN II-XII intact, oriented X3, no focal deficits. Absent: pronater drift, facial droop, speech deficit - Skin Skin exam: Present: dry, intact Internal Medicine: Result - Labs CBC & Chem 7: 09/16/16 06:25 09/16/16 06:25 Labs: Short CBC 09/16/16 Range/Units 06:25 WBC 13.4 H (4.3-11.1) K/mcL Hgb 10.1 L (12.9-16.9) g/dL Hct 31.4 L (37.5-50.1) % Plt Count 195 (140-400) K/mcL Neutrophils # 10.1 H (1.6-8.9) K/mcL BMP 09/16/16 06:25 Sodium 139 Potassium 3.7 Chloride 108 Carbon Dioxide 25 BUN 12 Creatinine 0.67 L Glucose 94 Calcium 8.4 L Cardiac Enzymes 09/16/16 09/16/16 Range/Units 01:00 06:25 Troponin I 0.04 H* 0.03 (0-0.03) ng/mL - ABG Interpretation ABG results: PT/INR, D-dimer PT 19.6 Seconds (9.4-12.1) H 09/15/16 15:42 Consult Discharge Plan - Plan Referrals: Cornelia Swanson MD [Primary Care Provider] - <Serjio Damon - Last Filed: 09/16/16 15:42> Date of Encounter: 09/16/16 - Constitutional Vitals: Temp Pulse Resp BP Pulse Ox 97.5 F L 86 12 112/78 93 L 09/16/16 11:30 09/16/16 11:30 09/16/16 11:30 09/16/16 11:30 09/16/16 11:30 Internal Medicine: Result - Labs CBC & Chem 7: 09/16/16 06:25 09/16/16 06:25 Labs: Short CBC 09/16/16 Range/Units 06:25 WBC 13.4 H (4.3-11.1) K/mcL Hgb 10.1 L (12.9-16.9) g/dL Hct 31.4 L (37.5-50.1) % Plt Count 195 (140-400) K/mcL Neutrophils # 10.1 H (1.6-8.9) K/mcL BMP 09/16/16 06:25 Sodium 139 Potassium 3.7 Chloride 108 Carbon Dioxide 25 BUN 12 Creatinine 0.67 L Glucose 94 Calcium 8.4 L Cardiac Enzymes 09/16/16 09/16/16 Range/Units 01:00 06:25 Troponin I 0.04 H* 0.03 (0-0.03) ng/mL Urine 09/15/16 Range/Units 22:30 Urine Color Yellow (Yellow) Urine Clarity Clear (Clear) Urine pH 6.5 (5.0-8.0) pH Units Ur Specific [place] 1.015 (1.010-1.025) Urine Protein Negative (Neg-Trace) mg/dL Urine Glucose (UA) Normal (Normal) mg/dL - ABG Interpretation ABG results: PT/INR, D-dimer PT 19.6 Seconds (9.4-12.1) H 09/15/16 15:42 - Attending Attestation I examined this patient and my medical decision-making was reviewed with the Resident Physician on 09/16/16. I agree with the documented findings, disposition and treatment plan as described except to the extent set forth below. Mr. Kwok is currently in observation for chest pain. Mr. Kwok is to have his stress test tomorrow. No further pain. Heart rate controlled at this time. Exam Alert. Comfortable Heart reg No wheeze No edema I/P 1. Chest pain - stress tomorrow 2. Leukocytosis - ? bronchitis versus other. Levaquin given 3. A fib with RVR Further diagnoses and plan as above.
[2016-09-16] MEDS: Metoprolol 100 MG TABLET PO SCH ×2 (11:06→22:01)
[2016-09-16] MEDS: Diltiazem CD (24hr) 240 MG CAPSULE PO SCH (14:06)
[2016-09-16] MEDS ORDERED: Magnesium Sulfate 2 GM in D5% in Water 100 ML IVPB ONE (14:23)
--- NOTE | 2016-09-16 15:45 | Event Note ---
Date of Encounter: 09/16/16 Time of Encounter: 15:43 - Cardiology Event Note Pt now in SR on PO cardizem CD 240mg daily and Lopressor 100mg BID. Off cardizem gtt. Cardiology is signing off. Initially planned for stress test prior to starting antiarrhythmics, but will defer stress test and antiarrhythmic initiation to outpt setting given pt is having back injections in upcoming days. His chest pain was likely secondary to his A-Fib with RVR. Follow-up in [address] Saran Jerez as planned.
--- NOTE | 2016-09-16 17:16 | Electrocardiograph Report ---
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
--- NOTE | 2016-09-16 17:34 | Electrocardiograph Report ---
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
[2016-09-16] MEDS ORDERED: *HR* Enoxaparin 80 MG/0.8 ML SYRINGE SQ SCH (23:00)
[2016-09-17] MEDS: *HR* HYDROcodone/Acet 5/325 mg TABLET PO PRN ×2 (01:36→06:59)
[2016-09-17 05:26] LABS: Basophils % 0.1 %; Eosinophils # 0.2 K/mcL (0.0-0.6); Eosinophils % 2.4 %; Hematocrit 29.6 % (37.5-50.1); Immature Granulocytes % 0.5 % (0-4); Lymphocytes # 2.4 K/mcL (0.6-4.6); Lymphocytes % 24.4 %; Mean Corpuscular HGB Conc 32.1 g/dL (31.6-35.5); Mean Corpuscular Hemoglobin 27.4 pg (28.0-33.3); Mean Corpuscular Volume 85.3 fL (83.0-100.0); Mean Platelet Volume 8.9 fL (9.4-12.4); Monocytes # 0.6 K/mcL (0.0-1.3); Monocytes % 5.8 %; Neutrophils # 6.5 K/mcL (1.6-8.9); Platelet Count 164 K/mcL (140-400); Red Blood Count 3.47 M/mcL (4.19-5.50); Red Cell Distribution Width 21.6 % (11.5-14.5); Segmented Neutrophils % 66.8 %
[2016-09-17 05:31] LABS: INR 1.2; Prothrombin Time 13.2 Seconds (9.4-12.1)
[2016-09-17 05:32] LABS: Hemoglobin 9.5 g/dL (12.9-16.9)
[2016-09-17 05:45] LABS: BUN/Creatinine Ratio 16 (6-26); Blood Urea Nitrogen 11 mg/dL (8-26); Calcium 8.1 mg/dL (8.6-10.8); Carbon Dioxide 19 mEq/L (19-29); Chloride 109 mEq/L (98-109); Glucose 86 mg/dL (70-99); Osmolality,Calculated 281 (280-300); Potassium 3.8 mEq/L (3.5-4.5); Sodium 136 mEq/L (136-145); eGFR For African Americans > 60 (> 60); eGFR For Non-African Americans > 60 (> 60)
[2016-09-17 07:03] VITALS: BP 134/89
[2016-09-17] MEDS: Metoprolol 100 MG TABLET PO SCH (08:23)
[2016-09-17] MEDS: Aspirin 81 MG TAB.CHEW PO SCH (08:23)
[2016-09-17] MEDS: Pantoprazole 40 MG VIAL IVP SCH (08:23)
[2016-09-17] MEDS: Diltiazem CD (24hr) 240 MG CAPSULE PO SCH (08:23)
[2016-09-17] MEDS: 0.9 % Sodium Chloride 1,000 ML IVC SCH (08:24)
[2016-09-17] MEDS ORDERED: *HR* Enoxaparin 40 MG/0.4 ML SYRINGE SQ ONE (08:36)
--- NOTE | 2016-09-17 08:39 | Discharge Summary ---
Date of Encounter: 09/17/16 Time of Encounter: 08:37 - Discharge Diagnosis (1) Atrial flutter Priority: Primary Status: Acute Qualifiers: Atrial flutter type: typical Qualified Code(s): I48.3 - Typical atrial flutter (2) Essential hypertension Priority: Secondary Status: Acute (3) Hypomagnesemia Priority: Secondary Status: Resolved (4) Chest pain Priority: Secondary Status: Acute Qualifiers: Chest pain type: precordial pain Qualified Code(s): R07.2 - Precordial pain (5) COPD (chronic obstructive pulmonary disease) Priority: Secondary Status: Chronic Qualifiers: COPD type: emphysema Emphysema type: panlobular Qualified Code(s): J43.1 - Panlobular emphysema (6) Leukocytosis Priority: Secondary Status: Resolved Qualifiers: Leukocytosis type: leukemoid reaction Qualified Code(s): D72.823 - Leukemoid reaction (7) Tobacco abuse Priority: Secondary Status: Chronic (8) Chronic back pain Priority: Secondary Status: Acute Qualifiers: Back pain location: low back pain Back pain laterality: bilateral Sciatica presence: without sciatica Qualified Code(s): M54.5 - Low back pain; G89.29 - Other chronic pain (9) Cardiac pacemaker in situ Priority: Secondary Status: Chronic - Discharge Medications Prescriptions: Enoxaparin [Lovenox] 120 mg SQ DAILY #10 syr Home Medications: Aspirin 81 mg PO DAILY 06/27/16 [History] Atorvastatin [Lipitor] 40 mg PO HS 06/27/16 [History] Ferrous Sulfate [Iron] 325 mg PO DAILY 06/27/16 [History] Pyridoxine HCl [Vitamin B-6] 25 mg PO DAILY 06/27/16 [History] Metoprolol [Lopressor] 100 mg PO BID #30 07/20/16 [Rx] Diltiazem CD (24hr) [Cardizem CD] 120 mg PO DAILY #60 cap.er.24h 07/30/16 [Rx] Pantoprazole Sodium [Protonix] 40 mg PO DAILY 09/15/16 [History] Aspirin 81 mg PO DAILY tab.chew 09/17/16 [Rx] Atorvastatin [Lipitor] 40 mg PO HS tablet 09/17/16 [Rx] Diltiazem CD (24hr) [Cardizem CD] 240 mg PO DAILY cap.er.24h 09/17/16 [Rx] Enoxaparin [Lovenox] 120 mg SQ DAILY #10 syr 09/17/16 [Rx] Metoprolol [Lopressor] 100 mg PO BID tablet 09/17/16 [Rx] Allergies/Adverse Reactions: Allergies Sulfa (Sulfonamide Antibiotics) Allergy (Verified 08/03/16 09:30) Rash Procedures/tests Complete & Pending: Procedures Performed prior 72 hours Category Date Time Status ECG 12 lead ECG [ECG] Routine Y 09/15/16 22:26 Completed Date of admission: 09/15/16 19:45 Primary care physician: Cornelia Donald Consults: 09/16/16 05:12 Consult to Cardiology [CONS] Routine Comment: Consulting Provider: Cardiology Cynthia Reason for Consult: Afib RVR Call Completed: Yes Discharging clinician: Serjio Damon Anticipated date of discharge: 09/17/16 - Patient Status Disposition: Home, Self-Care Condition: Fair Functional capacity at discharge: independent ambulation Overall status at discharge: patient is progressing back to baseline - Discharge Instructions Follow Up With: Cornelia Swanson MD [Primary Care Provider] - Additional Instructions: Follow up with Dr. Saran Jerez as arranged in 2 weeks. Hold coumadin until after procedure on . Continue daily Lovenox until after procedure [facility] and [facility]. - Diet and Activity Activity: increase activity as tolerated Diet: advance to your usual diet Hospital course: Mr. Kwok is a 71 year old male with hx of atrial fib/flutter, pacer, CAD and CVA presented to ED with chest pain. He was found to be in rapid atrial flutter. He was subsequently admitted for further evaluation and treatment. Mr. Kwok was admitted to [facility]. He was started on cardizem drip with improvement in his heart rate. Drip was stopped and his heartrate remained stable. Chest pain resolved with decreasing heartrate. He had no other acute issues. He was seen by cardiology and initially was to have stress test prior to starting any antiarrhythmics. As his rate was controlled on current meds, no changes were made and stress test was cancelled. He has follow up arranged with Dr. Saran Jerez in the office in 2 weeks. Mr. Kwok is also scheduled to have epidural injection in his back this upcoming . Coumadin has been held and he is on daily Lovenox injections. Script was written for this medication. - Time Spent with Patient Total time spent providing and/or coordinating discharge services: 41min - Constitutional Vitals: Temp Pulse Resp BP Pulse Ox 96.6 F L 80 17 134/89 93 L 09/17/16 08:10 09/17/16 08:10 09/17/16 08:10 09/17/16 08:10 09/17/16 08:10 General appearance: Present: A&O X 3, no acute distress, answers questions appropriately - Head Head exam: Present: normocephalic - Eye Eye exam: Present: conjuntiva pink - ENT ENT exam: Present: mucous membranes moist - Neck Neck exam general surgery: Present: supple - Respiratory Respiratory exam: Present: decreased breath sounds, CTAB - Cardiovascular Cardiovascular exam: Present: RRR. Absent: systolic murmur, tachycardia - GI/Abdominal GI/Abdominal exam: Present: soft. Absent: tenderness - Extremities Exam Extremities exam: Present: warm. Absent: pedal edema, tenderness - Neurological Exam Neurological exam: Present: alert, oriented X3 - Psychiatric Psychiatric exam: Present: normal affect, normal mood - Skin Skin exam: Present: dry, warm. Absent: rash
[2016-09-18] MEDS ORDERED: *HR* Warfarin 5 MG TABLET PO SCH (18:00)
== END 2016-09-17 13:35 | disposition home or self-care (01) ==
LOC: EMEROO 14:24 → 2NENU 14:24
PROVIDERS: ADMIT Internal Medicine; ATTEND Internal Medicine

== ENCOUNTER 2017-08-10 00:49 | Inpatient (IN) ==
[2017-08-10] MEDS ORDERED: 0.9 % Sodium Chloride 1,000 ML IVC ONE (01:11)
[2017-08-10] MEDS: dilTIAZem HCl 100 MG in D5% in Water 50 ML IVC SCH ×2 (01:20→18:27)
[2017-08-10 01:22] LABS: Basophils % 0.1 %; Eosinophils % 0.1 %; Hematocrit 37.8 % (37.5-50.1); Hemoglobin 12.8 g/dL (12.9-16.9); Immature Granulocytes % 0.4 % (0-4); Lymphocytes % 12.3 %; Mean Corpuscular HGB Conc 33.9 g/dL (31.6-35.5); Mean Corpuscular Hemoglobin 32.7 pg (28.0-33.3); Mean Corpuscular Volume 96.7 fL (83.0-100.0); Mean Platelet Volume 9.1 fL (9.4-12.4); Monocytes % 6.3 %; Neutrophils # 12.9 K/mcL (1.6-8.9); Platelet Count 308 K/mcL (140-400); Red Blood Count 3.91 M/mcL (4.19-5.50); Red Cell Distribution Width 13.2 % (11.5-14.5); Segmented Neutrophils % 80.8 %
[2017-08-10 01:27] LABS: Bilirubin,Urine Negative (Negative); Blood,Urine Negative (Negative); Clarity,Urine Clear (Clear); Color,Urine Yellow (Yellow); Glucose,Urine (UA) Normal (Normal); Ketones,Urine Negative (Negative); Leukocyte Esterase,Urine Negative (Negative); Nitrite,Urine Negative (Negative); PH,Urine 6.5 pH Units (5.0-8.0); Protein,Urine Negative (Neg-Trace); Specific Gravity,Urine 1.023 (1.010-1.025); Urobilinogen,Urine Normal (Normal)
[2017-08-10 01:28] LABS: Prothrombin Time 22.3 Seconds (9.4-12.1)
[2017-08-10 01:31] LABS: Activated Partial Thrombo Time 32.8 Seconds (26.0-36.0)
[2017-08-10 01:37] LABS: Alanine Aminotransferase 12 Units/L (7-52); Albumin 3.5 g/dL (3.5-5.7); Albumin/Globulin Ratio 0.9 (1.1-2.2); Alkaline Phosphatase 37 Units/L (34-104); Aspartate Amino Transferase 15 Units/L (13-39); BUN/Creatinine Ratio 20 (6-26); Bilirubin,Indirect 0.2 mg/dL (0.0-1.2); Bilirubin,Total 0.2 mg/dL (0.3-1.0); Blood Urea Nitrogen 13 mg/dL (8-23); Calcium 9.2 mg/dL (8.6-10.3); Carbon Dioxide 23 mEq/L (23-29); Chloride 108 mEq/L (98-107); Globulin 3.7 g/dL (2.4-3.5); Glucose 102 mg/dL (70-105); Lipase 23 Units/L (11-82); Osmolality,Calculated 284 (280-300); Potassium 3.7 mEq/L (3.5-5.1); Sodium 137 mEq/L (136-145); Total Protein 7.2 g/dL (6.4-8.9); eGFR For African Americans > 60 (> 60); eGFR For Non-African Americans > 60 (> 60)
[2017-08-10] MEDS ORDERED: Levofloxacin 750 MG/150 ML 750 MG/150 ML BAG IVPB ONE (01:57)
--- NOTE | 2017-08-10 02:12 | Emergency Department Note ---
Disposition Clinical Impression: Bronchitis, Atrial fibrillation with RVR Disposition: Admitted As Inpatient Condition: Good Referrals: Cornelia Swanson MD [Primary Care Provider] - Time of Disposition: 02:14 SOB HPI - General Chief Complaint: ED General Medical Stated Complaint: high bp/hr Time Seen by Provider: 08/10/17 01:01 Source: patient, family Limitations: no limitations Nursing Notes Reviewed: Yes Vital Signs Reviewed: Yes - History of Present Illness 72 year old male with history of afib and is curently anticoagualed and on meteoprolol therapy. Patinet states that he has been expeincing bronchitis type issues for the past 5 days and is otherwise neg for influeza becaues he was tested for it at the [place] nad most recently had a brething tretment [facility] today and sates that it didnt help much and he is feeeling worse and is currenlty having yellow/green productive sputum with subjective fevers and chills at home. He is currently tahcycardiac with afib. Denies chest pain but is experinivng slight dyapnea with exertion. - Related Data Home Medications Medication Instructions Recorded Confirmed Aspirin 81 mg PO DAILY 06/27/16 11/08/16 Atorvastatin [Lipitor] 40 mg PO HS 06/27/16 11/08/16 Ferrous Sulfate [Iron] 325 mg PO DAILY 06/27/16 11/08/16 Pantoprazole Sodium [Protonix] 40 mg PO DAILY 09/15/16 11/08/16 Previous Rx's Medication Instructions Recorded Metoprolol [Lopressor] 100 mg PO BID #30 07/20/16 Diltiazem CD (24hr) [Cardizem CD] 120 mg PO DAILY #60 cap.er.24h 07/30/16 Allergies Allergy/AdvReac Type Severity Reaction Status Date / Time Sulfa (Sulfonamide Allergy Rash Verified 08/03/16 09:30 Antibiotics) Constitutional: Denies: fever, chills, weakness, weight change Eyes: Denies: eye pain, eye discharge, vision change ENT ED: Denies: ear pain, throat pain, dental pain, hearing loss, epistaxis, congestion, dysphagia Cardiovascular: Reports: palpitations. Denies: chest pain, dyspnea on exertion , edema, syncope Respiratory: Reports: cough. Denies: dyspnea, wheezes, hemoptysis, stridor Gastrointestinal: Denies: abdominal pain, nausea, vomiting, diarrhea, constipation, hematemesis, melena, hematochezia Genitourinary: Denies: urgency, dysuria, frequency, hematuria Musculoskeletal: Denies: back pain, neck pain, arthralgia, myalgia Integumentary: Denies: rash, abrasion, lesions Neurological: Denies: headache, weakness, numbness, paresthesias, confusion, abnormal gait, vertigo Psychiatric: Denies: anxiety, depression, suicidal thoughts, homicidal thoughts , auditory hallucinations, visual hallucinations Endocrine: Denies: fatigue Hematological/Lymphatic: Denies: easy bleeding, easy bruising Allergic/Immunologic: Denies: facial swelling, urticaria Past Medical History - Past Medical History Medical history: Reports: atrial fibrillation, COPD, CVA, hyperlipidemia, hypertension Surgical history: Reports: non-contributory, orthopedic, other, pacemaker/AICD Psychiatric history: Reports: no psych history - Social History Smoking Status: Current every day smoker Smokeless Tobacco Status: No Alcohol use: Reports: heavy Drug use: Reports: none Physical Exam - General Limitations: no limitations General appearance: alert, in no apparent distress - Head Head exam: atraumatic, normocephalic, normal inspection - Eye Eye exam: Present: normal appearance, PERRL, EOMI - Expanded Eye Exam Pupils: Bilateral: reactive - ENT ENT exam: normal exam, normal oropharynx, mucous membranes moist - Expanded ENT Exam External ear exam: Present: normal external inspection Mouth exam: Present: normal external inspection Teeth exam: Present: normal inspection Throat exam: Present: normal inspection - Neck Neck exam: Present: normal inspection, full ROM, trachea midline - Chest Chest inspection: Present: normal inspection, symmetric chest wall rise - Respiratory Respiratory exam: Present: normal lung sounds bilaterally - Cardiovascular Cardiovascular exam: Present: tachycardia, irregular rhythm, normal heart sounds - Abdominal Exam Abdominal exam: Present: soft, Non-Tender. Absent: tenderness, distention, guarding, rebound, rigidity - Extremities Exam Extremities exam: Present: normal inspection, full ROM. Absent: tenderness, pedal edema - Expanded Upper Extremity Exam Shoulder exam: Present: normal inspection, full ROM Arm exam: Present: normal inspection, full ROM Elbow exam: Present: normal inspection, full ROM Forearm/Wrist exam: Present: normal inspection, full ROM Hand exam: Present: normal inspection, full ROM Vascular exam: Normal: capillary refill, radial pulse - Expanded Lower Extremity Exam Hip/Pelvis exam: Present: normal inspection, full ROM Upper leg exam: Present: normal inspection, full ROM Knee exam: Present: normal inspection, full ROM Lower leg exam: Present: normal inspection, full ROM Ankle exam: Present: normal inspection, full ROM Foot/toe exam: Present: normal inspection, full ROM Neurovascular/Tendon exam: Absent: motor deficit, sensory deficit, tendon deficit - Back Exam Back exam: Present: normal inspection, full ROM. Absent: tenderness - Neurological Exam Neurological exam: Present: alert, oriented X3 - Expanded Neurological Exam Patient oriented to: Present: person, place, time Coma Scale Eye Opening: Spontaneous Coma Scale Motor Response: Obeys Commands Coma Scale Verbal Response: Oriented Coma Scale Total: 15 - Psychiatric Psychiatric exam: Present: normal affect, normal mood - Skin Skin exam: Present: warm, dry, intact, normal color Course Course Narrative: we will treat his afib with cardiemand nini out pnumonia and then admit ot medicine. levaquin therapy started due to 16 WBC. Vital Signs Temperature 98.3 F 08/10/17 00:52 Pulse Rate 136 08/10/17 00:52 Respiratory Rate 16 08/10/17 00:52 Blood Pressure 157/105 08/10/17 00:52 O2 Sat by Pulse Oximetry 97 08/10/17 00:52 Temperature 98.3 F 08/10/17 00:52 Pulse Rate 98 08/10/17 01:24 Respiratory Rate 24 08/10/17 01:24 Blood Pressure 121/92 08/10/17 01:24 O2 Sat by Pulse Oximetry 95 08/10/17 01:24 Oxygen Delivery Oxygen Delivery Room Air Shortness of Breath/Dyspnea - Medical Records Medical records reviewed: Yes I reviewed the patient's medical records. - Lab Data Lab results reviewed: Yes I reviewed the patient's lab results. Result diagrams: 08/10/17 01:11 08/10/17 01:11 Lab Results 08/10/17 08/10/17 08/10/17 Range/Units 01:11 01:11 01:11 WBC 16.0 H (4.3-11.1) K/mcL RBC 3.91 L (4.19-5.50) M/mcL Hgb 12.8 L (12.9-16.9) g/dL Hct 37.8 (37.5-50.1) % MCV 96.7 (83.0-100.0) fL MCH 32.7 (28.0-33.3) pg MCHC 33.9 (31.6-35.5) g/dL RDW 13.2 (11.5-14.5) % Plt Count 308 (140-400) K/mcL MPV 9.1 L (9.4-12.4) fL Immature Gran % 0.4 (0-4) % Seg Neutrophils % 80.8 % Lymphocytes % 12.3 % Monocytes % 6.3 % Eosinophils % 0.1 % Basophils % 0.1 % Neutrophils # 12.9 H (1.6-8.9) K/mcL Lymphocytes # 2.0 (0.6-4.6) K/mcL Monocytes # 1.0 (0.0-1.3) K/mcL Eosinophils # 0.0 (0.0-0.6) K/mcL Basophils # 0.0 (0.0-0.2) K/mcL PT 22.3 H (9.4-12.1) Seconds INR 2.0 APTT 32.8 (26.0-36.0) Seconds Sodium (136-145) mEq/L Potassium (3.5-5.1) mEq/L Chloride (98-107) mEq/L Carbon Dioxide (23-29) mEq/L BUN (8-23) mg/dL Creatinine (0.70-1.30) mg/dL Est GFR ( Amer) (> 60) Est GFR (Non-Af Amer) (> 60) BUN/Creatinine Ratio (6-26) Glucose (70-105) mg/dL Calculated Osmolality (280-300) Lactic Acid (0.5-2.2) mmol/L Calcium (8.6-10.3) mg/dL Total Bilirubin (0.3-1.0) mg/dL Direct Bilirubin (0.0-0.2) mg/dL Indirect Bilirubin (0.0-1.2) mg/dL AST (13-39) Units/L ALT (7-52) Units/L Alkaline Phosphatase (34-104) Units/L Troponin I (< 0.04) ng/mL B-Natriuretic Peptide 384 H (Less than 100) pg/mL Serum Total Protein (6.4-8.9) g/dL Albumin (3.5-5.7) g/dL Globulin (2.4-3.5) g/dL Albumin/Globulin Ratio (1.1-2.2) Lipase (11-82) Units/L Urine Color (Yellow) Urine Clarity (Clear) Urine pH (5.0-8.0) pH Units Ur Specific [place] (1.010-1.025) Urine Protein (Neg-Trace) mg/dL Urine Glucose (UA) (Normal) mg/dL Urine Ketones (Negative) mg/dL Urine Blood (Negative) Urine Nitrite (Negative) Urine Bilirubin (Negative) Urine Urobilinogen (Normal) mg/dL Ur Leukocyte Esterase (Negative) Ur Culture Indicated? (NO) 08/10/17 08/10/17 08/10/17 Range/Units 01:11 01:11 01:11 WBC (4.3-11.1) K/mcL RBC (4.19-5.50) M/mcL Hgb (12.9-16.9) g/dL Hct (37.5-50.1) % MCV (83.0-100.0) fL MCH (28.0-33.3) pg MCHC (31.6-35.5) g/dL RDW (11.5-14.5) % Plt Count (140-400) K/mcL MPV (9.4-12.4) fL Immature Gran % (0-4) % Seg Neutrophils % % Lymphocytes % % Monocytes % % Eosinophils % % Basophils % % Neutrophils # (1.6-8.9) K/mcL Lymphocytes # (0.6-4.6) K/mcL Monocytes # (0.0-1.3) K/mcL Eosinophils # (0.0-0.6) K/mcL Basophils # (0.0-0.2) K/mcL PT (9.4-12.1) Seconds INR APTT (26.0-36.0) Seconds Sodium 137 (136-145) mEq/L Potassium 3.7 (3.5-5.1) mEq/L Chloride 108 H (98-107) mEq/L Carbon Dioxide 23 (23-29) mEq/L BUN 13 (8-23) mg/dL Creatinine 0.66 L (0.70-1.30) mg/dL Est GFR ( Amer) > 60 (> 60) Est GFR (Non-Af Amer) > 60 (> 60) BUN/Creatinine Ratio 20 (6-26) Glucose 102 (70-105) mg/dL Calculated Osmolality 284 (280-300) Lactic Acid 1.2 (0.5-2.2) mmol/L Calcium 9.2 (8.6-10.3) mg/dL Total Bilirubin 0.2 L (0.3-1.0) mg/dL Direct Bilirubin 0.0 (0.0-0.2) mg/dL Indirect Bilirubin 0.2 (0.0-1.2) mg/dL AST 15 (13-39) Units/L ALT 12 (7-52) Units/L Alkaline Phosphatase 37 (34-104) Units/L Troponin I < 0.03 (< 0.04) ng/mL B-Natriuretic Peptide (Less than 100) pg/mL Serum Total Protein 7.2 (6.4-8.9) g/dL Albumin 3.5 (3.5-5.7) g/dL Globulin 3.7 H (2.4-3.5) g/dL Albumin/Globulin Ratio 0.9 L (1.1-2.2) Lipase 23 (11-82) Units/L Urine Color (Yellow) Urine Clarity (Clear) Urine pH (5.0-8.0) pH Units Ur Specific [place] (1.010-1.025) Urine Protein (Neg-Trace) mg/dL Urine Glucose (UA) (Normal) mg/dL Urine Ketones (Negative) mg/dL Urine Blood (Negative) Urine Nitrite (Negative) Urine Bilirubin (Negative) Urine Urobilinogen (Normal) mg/dL Ur Leukocyte Esterase (Negative) Ur Culture Indicated? (NO) 08/10/17 Range/Units 01:20 WBC (4.3-11.1) K/mcL RBC (4.19-5.50) M/mcL Hgb (12.9-16.9) g/dL Hct (37.5-50.1) % MCV (83.0-100.0) fL MCH (28.0-33.3) pg MCHC (31.6-35.5) g/dL RDW (11.5-14.5) % Plt Count (140-400) K/mcL MPV (9.4-12.4) fL Immature Gran % (0-4) % Seg Neutrophils % % Lymphocytes % % Monocytes % % Eosinophils % % Basophils % % Neutrophils # (1.6-8.9) K/mcL Lymphocytes # (0.6-4.6) K/mcL Monocytes # (0.0-1.3) K/mcL Eosinophils # (0.0-0.6) K/mcL Basophils # (0.0-0.2) K/mcL PT (9.4-12.1) Seconds INR APTT (26.0-36.0) Seconds Sodium (136-145) mEq/L Potassium (3.5-5.1) mEq/L Chloride (98-107) mEq/L Carbon Dioxide (23-29) mEq/L BUN (8-23) mg/dL Creatinine (0.70-1.30) mg/dL Est GFR ( Amer) (> 60) Est GFR (Non-Af Amer) (> 60) BUN/Creatinine Ratio (6-26) Glucose (70-105) mg/dL Calculated Osmolality (280-300) Lactic Acid (0.5-2.2) mmol/L Calcium (8.6-10.3) mg/dL Total Bilirubin (0.3-1.0) mg/dL Direct Bilirubin (0.0-0.2) mg/dL Indirect Bilirubin (0.0-1.2) mg/dL AST (13-39) Units/L ALT (7-52) Units/L Alkaline Phosphatase (34-104) Units/L Troponin I (< 0.04) ng/mL B-Natriuretic Peptide (Less than 100) pg/mL Serum Total Protein (6.4-8.9) g/dL Albumin (3.5-5.7) g/dL Globulin (2.4-3.5) g/dL Albumin/Globulin Ratio (1.1-2.2) Lipase (11-82) Units/L Urine Color Yellow (Yellow) Urine Clarity Clear (Clear) Urine pH 6.5 (5.0-8.0) pH Units Ur Specific [place] 1.023 (1.010-1.025) Urine Protein Negative (Neg-Trace) mg/dL Urine Glucose (UA) Normal (Normal) mg/dL Urine Ketones Negative (Negative) mg/dL Urine Blood Negative (Negative) Urine Nitrite Negative (Negative) Urine Bilirubin Negative (Negative) Urine Urobilinogen Normal (Normal) mg/dL Ur Leukocyte Esterase Negative (Negative) Ur Culture Indicated? NO (NO) - Radiology Data Radiology results reviewed: Yes I reviewed the patient's radiology results. - EKG Data EKG attestation: Yes I reviewed and interpreted this EKG. EKG results narrative: atrial fibrillatoin with rate of 135. NO STEMi. no change in rhythm from previois ekg2//, although rate is tachycardiac.
[2017-08-10] MEDS ORDERED: Naloxone 0.4 MG/ML INJ IVP PRN (03:05)
[2017-08-10] MEDS ORDERED: Ipratropium/Albuterol Neb 3 ML IH PRN (03:09)
[2017-08-10] MEDS ORDERED: Magnesium Sulfate 2 GM in D5% in Water 100 ML IVPB ONE (03:25)
--- NOTE | 2017-08-10 03:33 | Internal Med History&Physical ---
Date of Encounter: 08/10/17 Time of Encounter: 03:29 Assessment and Plan (1) Atrial flutter with rapid ventricular response Current visit: No Status: Acute likely related to respiratory/viral prodrome ? now on dilt gtt start PO meds in the a.m and attempt to wean off dilt gtt replete mg since this is low does not appear to be on AC. Only on ASA per home med (2) Acute bronchitis Current visit: Yes Status: Acute possible had a resp viral infection send extended RVP panel IV steroids, azithro, duonebs OOB in the a.m to check exercise capacity Qualifiers: Bronchitis organism: other organism Qualified Code(s): J20.8 - Acute bronchitis due to other specified organisms (3) HLD (hyperlipidemia) Current visit: Yes Status: Acute continue statin Qualifiers: Hyperlipidemia type: pure hypercholesterolemia Qualified Code(s): E78.00 - Pure hypercholesterolemia, unspecified; E78.0 - Pure hypercholesterolemia Internal Medicine - H&P: HPI Chief complaint: Fast HR, viral prodrome History of present illness: Mr. Kwok is a 72 year old male who presents with AFib rvr. [facility]x of viral prodromal symptoms of chills, muscle aches, sore throat, cough productive of green sputum, decrease exercise tolerance, fatigue more easily. He was empirically treated with acute bronchitis after a negative rapid flu swab [facility]. He did not start his medications (antibiotics, steroids) until monday. However, today, he noted that his HR was high in the 130 prompting his admission to the ED since the [facility]. At baseline, he smokes 3/4 to 1 ppd. EKG reviewed in the ED with rate 135, AFlutter. XR/XR chest 1V portable IMPRESSION: No acute disease. Past Med Surg Social Fam HX - Past Medical History Medical history: atrial fibrillation, COPD, CVA, hyperlipidemia, hypertension Psychiatric history: no psych history - Past Surgical History Surgical History: non-contributory, orthopedic, other, pacemaker/AICD - Social History Smoking Status: Current every day smoker Smokeless Tobacco Status: No Alcohol use: heavy Drug use: none - Family History Mother Living Status: Hx Family Endocrine Disorder: Yes Father Living Status: Hx Family Cancer: Yes Internal Medicine - H&P: Meds Aspirin 81 mg PO DAILY 06/27/16 [History] Atorvastatin [Lipitor] 40 mg PO HS 06/27/16 [History] Ferrous Sulfate [Iron] 325 mg PO DAILY 06/27/16 [History] Metoprolol [Lopressor] 100 mg PO BID #30 07/20/16 [Rx] Diltiazem CD (24hr) [Cardizem CD] 120 mg PO DAILY #60 cap.er.24h 07/30/16 [Rx] Pantoprazole Sodium [Protonix] 40 mg PO DAILY 09/15/16 [History] 3 Allergy/AdvReac Type Severity Reaction Status Date / Time Sulfa (Sulfonamide Allergy Rash Verified 08/03/16 09:30 Antibiotics) All Systems PM: A 10-system review of systems was performed and is negative for pertinent findings except as documented above in the HPI. Review of systems: ROS 14 point review of systems reviewed as best as possible given presentation. Pertinent positive or negative as per HPI or otherwise reviewed as negative - Constitutional Vitals: Temp Pulse Resp BP Pulse Ox 98.3 F 82 12 128/72 97 08/10/17 00:52 08/10/17 03:20 08/10/17 03:20 08/10/17 03:20 08/10/17 03:20 Exam: General - AAO x 3 Psych - Appropriate affect/speech. No agitation Eyes - LIZZY. Eye lids intact. No scleral icterus Heart - Irregularly irregular. S1 and S2 present. No added HS/murmurs appreciated. No elevated JVD appreciated. Lung - Decreased air entry b/l, No crackles/wheezes appreciated GI - Soft, non-tender. No hepatosplenomegaly/ascites. BS+ - No CVA/suprapubic tenderness or palpable bladder distension Skin - Intact. No rash/petechiae/ecchymosis. Warm extremities MSK - Joints with normal ROM. No joint swellings Internal Med - H&P Results - Labs CBC & Chem 7: 08/10/17 01:11 08/10/17 01:11
[2017-08-10] MEDS: Ipratropium/Albuterol Neb 3 ML IH SCH ×4 (04:42→22:44)
[2017-08-10 04:51] LABS: Basophils % 0.1 %; Eosinophils % 0.2 %; Hematocrit 34.2 % (37.5-50.1); Immature Granulocytes % 0.5 % (0-4); Lymphocytes # 2.1 K/mcL (0.6-4.6); Lymphocytes % 17.9 %; Mean Corpuscular HGB Conc 32.7 g/dL (31.6-35.5); Mean Corpuscular Hemoglobin 32.1 pg (28.0-33.3); Mean Platelet Volume 9.2 fL (9.4-12.4); Monocytes # 0.6 K/mcL (0.0-1.3); Neutrophils # 9.1 K/mcL (1.6-8.9); Platelet Count 262 K/mcL (140-400); Red Blood Count 3.49 M/mcL (4.19-5.50); Red Cell Distribution Width 13.2 % (11.5-14.5); Segmented Neutrophils % 76.3 %
[2017-08-10 04:52] LABS: Hemoglobin 11.2 g/dL (12.9-16.9)
[2017-08-10] MEDS: 0.9 % Sodium Chloride 1,000 ML IVC SCH ×2 (04:52→16:06)
[2017-08-10] MEDS: Azithromycin 500 MG in D5% in Water 250 ML IVPB SCH (04:55)
[2017-08-10 05:16] LABS: BUN/Creatinine Ratio 19 (6-26); Blood Urea Nitrogen 13 mg/dL (8-23); Calcium 8.3 mg/dL (8.6-10.3); Carbon Dioxide 24 mEq/L (23-29); Chloride 110 mEq/L (98-107); Glucose 131 mg/dL (70-105); Magnesium 1.6 mg/dL (1.6-2.6); Osmolality,Calculated 290 (280-300); Potassium 3.2 mEq/L (3.5-5.1); Sodium 139 mEq/L (136-145); eGFR For African Americans > 60 (> 60); eGFR For Non-African Americans > 60 (> 60)
[2017-08-10 05:54] LABS: Adenovirus Not Detected (Not Detect); Bordetella Pertussis Not Detected (Not Detect); Chlamydophila pneumoniae Not Detected (Not Detect); Coronavirus 229E Not Detected (Not Detect); Coronavirus HKU1 Not Detected (Not Detect); Coronavirus NL63 Not Detected (Not Detect); Coronavirus OC43 Not Detected (Not Detect); Human Metapneumovirus Not Detected (Not Detect); Human Rhinovirus/Enterovirus Not Detected (Not Detect); Influenza A Subtype 2009 H1 Not Detected (Not Detect); Influenza A Untypeable Not Detected (Not Detect); Influenza B Not Detected (Not Detect); Mycoplasma pneumoniae Not Detected (Not Detect); Parainfluenza Virus 1 Not Detected (Not Detect); Parainfluenza Virus 2 Not Detected (Not Detect); Parainfluenza Virus 3 Not Detected (Not Detect); Parainfluenza Virus 4 Not Detected (Not Detect); Respiratory Syncytial Virus Not Detected (Not Detect)
[2017-08-10] MEDS ORDERED: *HR* Enoxaparin 40 MG/0.4 ML SYRINGE SQ SCH (06:00)
--- NOTE | 2017-08-10 08:53 | Internal Med Progress Note ---
<Cj Gonzalez - Last Filed: 08/10/17 14:39> Date of Encounter: 08/10/17 Time of Encounter: 08:47 - Assessment and plan (1) Atrial fibrillation with RVR Current Visit: Yes Status: Acute Assessment and plan: Had same complaint in 09/16 Secondary to respiratory illness, most likely. Continues to be irregular, but rate controlled. Wean diltiazem drip to oral home dose Continue home metoprolol Continue warfarin as scheduled Anticipate discharge tomorrow (2) Acute bronchitis Current Visit: Yes Status: Acute Assessment and plan: Patient continues to have productive cough. Denies SOB. Continue azithromycin 500 mg and transitioned methylprednisolone to prednisone 40 mg Nebulizer as needed Qualifiers: Bronchitis organism: other organism Qualified Code(s): J20.8 - Acute bronchitis due to other specified organisms (3) HLD (hyperlipidemia) Current Visit: Yes Status: Acute Assessment and plan: Patient admits to noncompliance with home medications. Continue atorvastatin 40 mg Qualifiers: Hyperlipidemia type: pure hypercholesterolemia Qualified Code(s): E78.00 - Pure hypercholesterolemia, unspecified; E78.0 - Pure hypercholesterolemia (4) Essential hypertension Current Visit: Yes Status: Acute Assessment and plan: Patient is controlled at home. BP stable. Continue with home medications. (5) Cardiac pacemaker in situ Current Visit: Yes Status: Chronic Assessment and plan: Secondary to Afib (6) Anticoagulated on Coumadin Current Visit: Yes Status: Chronic Assessment and plan: See above for dosing schedule (7) Anemia Current Visit: Yes Status: Acute Assessment and plan: Stable Continue oral iron supplementation Qualifiers: Anemia type: iron deficiency Iron deficiency anemia type: unspecified iron deficiency Qualified Code(s): D50.9 - Iron deficiency anemia, unspecified (8) Tobacco abuse Current Visit: No Status: Chronic Assessment and plan: Patient has 50+ pack years of history Nicotine patch Gave patient information regarding LDCT screening (9) Hypokalemia Current Visit: Yes Status: Acute Assessment and plan: 3.2 today Replacing - Subjective Interval history: Patient is "feeling 90% better." He continues to have a cough and had a single episode of nausea overnight. Denies vomiting or other GI complaint. Denies palpitations, chest pain, dizziness, or weakness. - Constitutional Vitals: Temp Pulse Resp BP Pulse Ox 97.5 F L 75 16 118/75 97 08/10/17 06:26 08/10/17 06:26 08/10/17 06:26 08/10/17 06:26 08/10/17 06:26 General appearance: Present: cooperative, A&O X 3, no acute distress, answers questions appropriately - Head Head exam: Present: atraumatic, normal inspection, normocephalic - Neck Neck exam general surgery: Present: trachea midline - Respiratory Respiratory exam: Present: CTAB. Absent: accessory muscle use, respiratory distress - Cardiovascular Cardiovascular exam: Present: irregular rhythm, +S1, +S2. Absent: tachycardia - GI/Abdominal GI/Abdominal exam: Present: soft, no peritoneal signs. Absent: tenderness - Extremities Exam Extremities exam: Absent: pedal edema - Psychiatric Psychiatric exam: Present: normal affect, normal mood. Absent: agitated, anxious - Skin Skin exam: Present: dry, warm Internal Medicine: Result - Labs CBC & Chem 7: 08/10/17 04:16 08/10/17 04:16 Labs: Short CBC 08/10/17 Range/Units 04:16 WBC 11.9 H (4.3-11.1) K/mcL Hgb 11.2 L D (12.9-16.9) g/dL Hct 34.2 L (37.5-50.1) % Plt Count 262 (140-400) K/mcL Neutrophils # 9.1 H (1.6-8.9) K/mcL BMP 08/10/17 04:16 Sodium 139 Potassium 3.2 L Chloride 110 H Carbon Dioxide 24 BUN 13 Creatinine 0.67 L Glucose 131 H Calcium 8.3 L - ABG Interpretation ABG results: PT/INR, D-dimer PT 22.3 Seconds (9.4-12.1) H 08/10/17 01:11 Consult Discharge Plan - Plan Referrals: Cornelia Swanson MD [Primary Care Provider] - <Piter Johnson - Last Filed: 08/10/17 16:07> Date of Encounter: 08/10/17 - Constitutional Vitals: Temp Pulse Resp BP Pulse Ox 97.4 F L 95 16 112/74 92 08/10/17 10:35 08/10/17 10:35 08/10/17 10:35 08/10/17 13:40 08/10/17 10:35 Internal Medicine: Result - Labs CBC & Chem 7: 08/10/17 04:16 08/10/17 04:16 Labs: Short CBC 08/10/17 Range/Units 04:16 WBC 11.9 H (4.3-11.1) K/mcL Hgb 11.2 L D (12.9-16.9) g/dL Hct 34.2 L (37.5-50.1) % Plt Count 262 (140-400) K/mcL Neutrophils # 9.1 H (1.6-8.9) K/mcL BMP 08/10/17 04:16 Sodium 139 Potassium 3.2 L Chloride 110 H Carbon Dioxide 24 BUN 13 Creatinine 0.67 L Glucose 131 H Calcium 8.3 L - ABG Interpretation ABG results: PT/INR, D-dimer PT 22.3 Seconds (9.4-12.1) H 08/10/17 01:11 - Attending Attestation I examined this patient and my medical decision-making was reviewed with the Resident Physician on 08/10/17. I agree with the documented findings, disposition and treatment plan as described except to the extent set forth below. Seen and examined at bedside. He is 72-year-old male with medical history of atrial fibrillation with pacemaker, hyperlipidemia. He is admitted and being managed for atrial fibrillation with rapid ventricular response, hypertensiveurgency, and acute bronchitis. At the time of review, the patient reports significant improvement, and has no new complaints. His nausea has resolved. Heart rate has been controlled on the current dose of Cardizem IV, and his home dose of Cardizem by mouth. Physical examination vital signs are stable, alert oriented 3, chest is clear to auscultation bilaterally anteriorly and posteriorly, abdomen is soft flat and nontender, no pedal edema. Heart sounds S1 and S2 regular but rate is controlled. Labs and imaging reviewed: leukocytosis has improved, mild hypokalemia potassium 3.2, INR is therapeutic at 2.0. Respiratory and flu testing is negative. Plan of care today, continue current management, wean off intravenous Cardizem, change Solu-Medrol to prednisone by mouth. Continue other management. Rest of details as in resident physician's documentation.
[2017-08-10] MEDS: Aspirin 81 MG TAB.CHEW PO SCH (08:54)
[2017-08-10] MEDS: Metoprolol 100 MG TABLET PO SCH ×2 (08:54→20:56)
[2017-08-10] MEDS ORDERED: MethylPREDNISolone 40 MG/ML VIAL IVP SCH (09:00)
[2017-08-10] MEDS ORDERED: Diltiazem CD (24hr) 120 MG CAPSULE PO SCH (09:00)
--- NOTE | 2017-08-10 15:05 | Electrocardiograph Report ---
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
[2017-08-10] MEDS ORDERED: Famotidine 20 MG TABLET PO PRN (15:34)
[2017-08-10] MEDS ORDERED: dilTIAZem HCl 100 MG in D5% in Water 50 ML IVC SCH (15:45)
[2017-08-10] MEDS ORDERED: *HR* Warfarin 7.5 MG TABLET PO SCH (18:00)
[2017-08-10] MEDS ORDERED: *HR* Warfarin 5 MG TABLET PO ONE (18:00)
[2017-08-10] MEDS ORDERED: Warfarin perPT PO PRN (18:00)
[2017-08-10] MEDS: Melatonin 3 MG TABLET PO PRN (20:56)
[2017-08-11] MEDS: Azithromycin 500 MG in D5% in Water 250 ML IVPB SCH (03:19)
[2017-08-11] MEDS ORDERED: Acetaminophen 325 MG TABLET PO PRN ×2 (04:38→10:35)
[2017-08-11] MEDS ORDERED: *HR* Morphine 2 MG/ML SYRINGE IVP PRN (04:39)
[2017-08-11] MEDS: Ipratropium/Albuterol Neb 3 ML IH SCH ×4 (05:17→22:56)
[2017-08-11 05:27] LABS: Basophils % 0.1 %; Eosinophils % 0.1 %; Hematocrit 34.1 % (37.5-50.1); Hemoglobin 11.2 g/dL (12.9-16.9); Immature Granulocytes % 0.5 % (0-4); Lymphocytes # 1.9 K/mcL (0.6-4.6); Lymphocytes % 12.3 %; Mean Corpuscular HGB Conc 32.8 g/dL (31.6-35.5); Mean Corpuscular Hemoglobin 32.3 pg (28.0-33.3); Mean Corpuscular Volume 98.3 fL (83.0-100.0); Mean Platelet Volume 9.2 fL (9.4-12.4); Monocytes # 0.9 K/mcL (0.0-1.3); Monocytes % 6.1 %; Neutrophils # 12.3 K/mcL (1.6-8.9); Platelet Count 256 K/mcL (140-400); Red Blood Count 3.47 M/mcL (4.19-5.50); Red Cell Distribution Width 13.3 % (11.5-14.5); Segmented Neutrophils % 80.9 %
[2017-08-11 05:40] LABS: BUN/Creatinine Ratio 20 (6-26); Blood Urea Nitrogen 12 mg/dL (8-23); Calcium 8.4 mg/dL (8.6-10.3); Carbon Dioxide 24 mEq/L (23-29); Chloride 108 mEq/L (98-107); Glucose 87 mg/dL (70-105); Magnesium 1.9 mg/dL (1.6-2.6); Osmolality,Calculated 281 (280-300); Potassium 3.8 mEq/L (3.5-5.1); Sodium 136 mEq/L (136-145); eGFR For African Americans > 60 (> 60); eGFR For Non-African Americans > 60 (> 60)
[2017-08-11 05:47] LABS: INR 1.6; Prothrombin Time 17.9 Seconds (9.4-12.1)
[2017-08-11] MEDS: Metoprolol 100 MG TABLET PO SCH ×2 (07:40→20:31)
[2017-08-11] MEDS: predniSONE 20 MG TABLET PO SCH (07:40)
[2017-08-11] MEDS: Aspirin 81 MG TAB.CHEW PO SCH (07:41)
--- NOTE | 2017-08-11 08:57 | Electrocardiograph Report ---
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
[2017-08-11] MEDS ORDERED: Diltiazem CD (24hr) 120 MG CAPSULE PO SCH (09:00)
--- NOTE | 2017-08-11 09:38 | Internal Med Progress Note ---
<Cj Gonzalez - Last Filed: 08/11/17 11:34> Date of Encounter: 08/11/17 Time of Encounter: 08:30 - Assessment and plan (1) Atrial fibrillation with RVR Current Visit: Yes Status: Acute Assessment and plan: Secondary to respiratory illness, most likely. Continues to be irregular with variable rate, from 90s up to the 130s. Wean diltiazem drip, increase oral dose Continue home metoprolol Continue warfarin as scheduled Will check echo due to exertional dyspnea, last was in 06/2016 (2) Acute bronchitis Current Visit: Yes Status: Acute Assessment and plan: Patient continues to have productive cough. Denies SOB. Continue prednisone 40 mg Nebulizer as needed Qualifiers: Bronchitis organism: other organism Qualified Code(s): J20.8 - Acute bronchitis due to other specified organisms (3) HLD (hyperlipidemia) Current Visit: Yes Status: Acute Assessment and plan: Patient admits to noncompliance with home medications. Continue atorvastatin 40 mg Qualifiers: Hyperlipidemia type: pure hypercholesterolemia Qualified Code(s): E78.00 - Pure hypercholesterolemia, unspecified; E78.0 - Pure hypercholesterolemia (4) Essential hypertension Current Visit: Yes Status: Acute Assessment and plan: Controlled. Continue with home medications. (5) Cardiac pacemaker in situ Current Visit: Yes Status: Chronic Assessment and plan: Secondary to Afib (6) Anticoagulated on Coumadin Current Visit: Yes Status: Chronic Assessment and plan: See above for dosing schedule subtherapeutic and 1.6 this morning. (7) Anemia Current Visit: Yes Status: Acute Assessment and plan: Stable Continue oral iron supplementation Qualifiers: Anemia type: iron deficiency Iron deficiency anemia type: unspecified iron deficiency Qualified Code(s): D50.9 - Iron deficiency anemia, unspecified (8) Tobacco abuse Current Visit: Yes Status: Chronic (9) Hypokalemia Current Visit: Yes Status: Acute Assessment and plan: Replaced and improved. 3.8 today, up from 3.2 - Subjective Interval history: Patient is feeling well today. He continues to have a productive cough. Denies nausea, vomiting, or other GI complaint. Denies palpitations, chest pain. Patient admits to occasional light headedness when moving around. He attributes this to "laying in bed all day". His diltiazem drip was increased overnight due to HR in 130s, and he was given lopressor. HR came down to 90s briefly. - Constitutional Vitals: Temp Pulse Resp BP Pulse Ox 97.5 F L 123 16 130/82 95 08/11/17 07:05 08/11/17 07:05 08/11/17 07:05 08/11/17 07:05 08/11/17 07:05 General appearance: Present: cooperative, A&O X 3, no acute distress, answers questions appropriately - Head Head exam: Present: atraumatic, normal inspection, normocephalic - Neck Neck exam general surgery: Present: trachea midline - Respiratory Respiratory exam: Present: decreased breath sounds, CTAB. Absent: accessory muscle use, respiratory distress - Cardiovascular Cardiovascular exam: Present: irregular rhythm, +S1, +S2, tachycardia - GI/Abdominal GI/Abdominal exam: Present: soft, no peritoneal signs. Absent: tenderness - Extremities Exam Extremities exam: Absent: pedal edema - Neurological Exam Neurological exam: Present: alert, oriented X3 - Psychiatric Psychiatric exam: Present: normal affect, normal mood. Absent: agitated, anxious - Skin Skin exam: Present: dry, warm Internal Medicine: Result - Labs CBC & Chem 7: 08/11/17 05:03 08/11/17 05:03 Labs: Short CBC 08/11/17 Range/Units 05:03 WBC 15.2 H (4.3-11.1) K/mcL Hgb 11.2 L (12.9-16.9) g/dL Hct 34.1 L (37.5-50.1) % Plt Count 256 (140-400) K/mcL Neutrophils # 12.3 H (1.6-8.9) K/mcL BMP 08/11/17 05:03 Sodium 136 Potassium 3.8 Chloride 108 H Carbon Dioxide 24 BUN 12 Creatinine 0.60 L Glucose 87 Calcium 8.4 L Cardiac Enzymes 08/11/17 Range/Units 05:03 Troponin I < 0.03 (< 0.04) ng/mL - ABG Interpretation ABG results: PT/INR, D-dimer PT 17.9 Seconds (9.4-12.1) H 08/11/17 05:03 Consult Discharge Plan - Plan Referrals: Cornelia Swanson MD [Primary Care Provider] - <Piter Johnson - Last Filed: 08/11/17 14:14> Date of Encounter: 08/11/17 - Constitutional Vitals: Temp Pulse Resp BP Pulse Ox 97.9 F 57 12 114/76 93 08/11/17 12:14 08/11/17 12:14 08/11/17 12:14 08/11/17 12:14 08/11/17 12:14 Internal Medicine: Result - Labs CBC & Chem 7: 08/11/17 05:03 08/11/17 05:03 Labs: Short CBC 08/11/17 Range/Units 05:03 WBC 15.2 H (4.3-11.1) K/mcL Hgb 11.2 L (12.9-16.9) g/dL Hct 34.1 L (37.5-50.1) % Plt Count 256 (140-400) K/mcL Neutrophils # 12.3 H (1.6-8.9) K/mcL BMP 08/11/17 05:03 Sodium 136 Potassium 3.8 Chloride 108 H Carbon Dioxide 24 BUN 12 Creatinine 0.60 L Glucose 87 Calcium 8.4 L Cardiac Enzymes 08/11/17 Range/Units 05:03 Troponin I < 0.03 (< 0.04) ng/mL - ABG Interpretation ABG results: PT/INR, D-dimer PT 17.9 Seconds (9.4-12.1) H 08/11/17 05:03 - Attending Attestation I examined this patient and my medical decision-making was reviewed with the Resident Physician on 08/11/17. I agree with the documented findings, disposition and treatment plan as described except to the extent set forth below. Seen and examined at bedside. He is 72-year-old male with medical history of atrial fibrillation with pacemaker, hyperlipidemia. He is admitted and being managed for atrial fibrillation with rapid ventricular response, hypertensive urgency, and acute bronchitis. He has no new complains He states he has NERI at home, no chest pain, he also complained of sometimes having L arm pain at home, only on exertion, no current chest pain Physical examination vital signs are stable, afebrile, blood pressure controlled , alert oriented 3, chest exam with transmitted sound, no rhonchi, no crackles , no wheezes, abdomen is soft flat and nontender, no pedal edema. Heart sounds S1 and S2 regular but rate is controlled. Labs and imaging reviewed: leukocytosis slightly worsened, CBC WNL. INR subtherapeutic. Respiratory and flu testing is negative. Assessment: Acute viral bronchitis, Afib with RVR, Uncontrolled HTN Obtain ECHO. Continue current care Add po diltiazem and wean off IV as tolerated MOnitor INR, increase warfarin per PT Rest of details as in resident physician's documentation.
[2017-08-11] MEDS: Diltiazem CD (24hr) 180 MG CAPSULE PO SCH (10:09)
[2017-08-11] MEDS ORDERED: *HR* OxyCODONE Immed Rel 5 MG TABLET PO PRN (10:34)
[2017-08-11] MEDS ORDERED: *HR* Warfarin 5 MG TABLET PO ONE (18:00)
[2017-08-11] MEDS: Melatonin 3 MG TABLET PO PRN (20:32)
[2017-08-12] MEDS: Azithromycin 500 MG in D5% in Water 250 ML IVPB SCH (03:09)
[2017-08-12] MEDS: Ipratropium/Albuterol Neb 3 ML IH SCH ×4 (04:38→23:53)
[2017-08-12 07:26] LABS: INR 1.5
[2017-08-12 07:41] LABS: BUN/Creatinine Ratio 22 (6-26); Blood Urea Nitrogen 15 mg/dL (8-23); Calcium 8.8 mg/dL (8.6-10.3); Carbon Dioxide 26 mEq/L (23-29); Chloride 104 mEq/L (98-107); Glucose 74 mg/dL (70-105); Magnesium 1.7 mg/dL (1.6-2.6); Osmolality,Calculated 285 (280-300); Potassium 3.2 mEq/L (3.5-5.1); Sodium 138 mEq/L (136-145); eGFR For African Americans > 60 (> 60); eGFR For Non-African Americans > 60 (> 60)
[2017-08-12 08:17] LABS: Basophils % 0.2 %; Eosinophils % 0.3 %; Hematocrit 37.2 % (37.5-50.1); Immature Granulocytes % 0.7 % (0-4); Lymphocytes # 2.7 K/mcL (0.6-4.6); Lymphocytes % 22.7 %; Mean Corpuscular HGB Conc 32.3 g/dL (31.6-35.5); Mean Corpuscular Hemoglobin 31.7 pg (28.0-33.3); Mean Corpuscular Volume 98.4 fL (83.0-100.0); Mean Platelet Volume 9.3 fL (9.4-12.4); Monocytes # 0.9 K/mcL (0.0-1.3); Monocytes % 7.3 %; Neutrophils # 8.2 K/mcL (1.6-8.9); Platelet Count 345 K/mcL (140-400); Red Blood Count 3.78 M/mcL (4.19-5.50); Red Cell Distribution Width 13.2 % (11.5-14.5); Segmented Neutrophils % 68.8 %
[2017-08-12] MEDS: Diltiazem CD (24hr) 180 MG CAPSULE PO SCH (08:18)
[2017-08-12] MEDS: predniSONE 20 MG TABLET PO SCH (08:18)
[2017-08-12] MEDS: Aspirin 81 MG TAB.CHEW PO SCH (08:19)
[2017-08-12] MEDS: Metoprolol 100 MG TABLET PO SCH ×2 (08:19→21:22)
--- NOTE | 2017-08-12 12:29 | Internal Med Progress Note ---
<Cj Gonzalez - Last Filed: 08/12/17 12:26> Date of Encounter: 08/12/17 Time of Encounter: 08:30 - Assessment and plan (1) Atrial fibrillation with RVR Current Visit: Yes Status: Acute Assessment and plan: Secondary to respiratory illness Continues to be irregular with variable rate, from 70s to 110s Stopped diltiazem drip, continue 180 mg PO Continue home metoprolol Continue warfarin as scheduled echo was normal. (2) Acute bronchitis Current Visit: Yes Status: Acute Assessment and plan: Denies SOB. Continue prednisone 40 mg, day 3 of 5 Nebulizer as needed Qualifiers: Bronchitis organism: other organism Qualified Code(s): J20.8 - Acute bronchitis due to other specified organisms (3) HLD (hyperlipidemia) Current Visit: Yes Status: Acute Assessment and plan: Patient admits to noncompliance with home medications. Continue atorvastatin 40 mg Qualifiers: Hyperlipidemia type: pure hypercholesterolemia Qualified Code(s): E78.00 - Pure hypercholesterolemia, unspecified; E78.0 - Pure hypercholesterolemia (4) Essential hypertension Current Visit: Yes Status: Acute Assessment and plan: Controlled. Continue with home medications. (5) Cardiac pacemaker in situ Current Visit: Yes Status: Chronic Assessment and plan: Secondary to Afib (6) Anticoagulated on Coumadin Current Visit: Yes Status: Chronic Assessment and plan: See above for dosing schedule subtherapeutic at 1.5 this morning. (7) Anemia Current Visit: Yes Status: Acute Assessment and plan: Stable Hgb 12.0 Continue oral iron supplementation Qualifiers: Anemia type: iron deficiency Iron deficiency anemia type: unspecified iron deficiency Qualified Code(s): D50.9 - Iron deficiency anemia, unspecified (8) Tobacco abuse Current Visit: Yes Status: Chronic (9) Hypokalemia Current Visit: Yes Status: Acute Assessment and plan: 3.2 this morning. Ordered an additional 40 mEq. - Subjective Interval history: Patient is feeling well today. No complaints at this time. HR 70-90s at rest. Up to 110s with activity. - Constitutional Vitals: Temp Pulse Resp BP Pulse Ox 97.8 F 75 16 114/75 96 08/12/17 11:09 08/12/17 11:09 08/12/17 11:09 08/12/17 11:09 08/12/17 11:09 General appearance: Present: cooperative, A&O X 3, no acute distress, answers questions appropriately - Head Head exam: Present: atraumatic, normal inspection, normocephalic - ENT ENT exam: Present: mucous membranes moist - Neck Neck exam general surgery: Present: trachea midline - Respiratory Respiratory exam: Present: CTAB. Absent: accessory muscle use, respiratory distress - Cardiovascular Cardiovascular exam: Present: irregular rhythm, +S1, +S2. Absent: tachycardia - GI/Abdominal GI/Abdominal exam: Present: no peritoneal signs - Extremities Exam Extremities exam: Absent: pedal edema - Psychiatric Psychiatric exam: Present: normal affect, normal mood. Absent: agitated, anxious - Skin Skin exam: Present: dry, warm Internal Medicine: Result - Labs CBC & Chem 7: 08/12/17 05:55 08/12/17 05:55 Labs: Short CBC 08/12/17 Range/Units 05:55 WBC 11.9 H (4.3-11.1) K/mcL Hgb 12.0 L (12.9-16.9) g/dL Hct 37.2 L (37.5-50.1) % Plt Count 345 (140-400) K/mcL Neutrophils # 8.2 (1.6-8.9) K/mcL BMP 08/12/17 05:55 Sodium 138 Potassium 3.2 L Chloride 104 Carbon Dioxide 26 BUN 15 Creatinine 0.67 L Glucose 74 Calcium 8.8 - ABG Interpretation ABG results: PT/INR, D-dimer PT 16.0 Seconds (9.4-12.1) H 08/12/17 05:55 - Impressions Impressions Echocardiogram 08/11/17 11:32 Impressions: LVEF 55-60%. Normal LV chamber size, wall thickness and function. Indeterminate diastolic function. Normal right ventricular structure and function. No evidence of pulmonary hypertension. A device lead was visualized in the right atrium and right ventricle. No significant valvular dysfunction. Left Ventricular Wall Motion: Rest Echo Findings All wall segments showed normal motion. Findings: Study Quality * Technically adequate exam. ECG Findings * Rhythm appeared to be atrial flutter. Bundle branch block noted. Left Ventricle * LVEF 55-60%. * Normal LV chamber size, wall thickness and function. * Indeterminate diastolic function. * Atypical septal motion consistent with bundle branch block. Right Ventricle * Normal right ventricular structure and function. Left Atrium * Moderately dilated left atrium. Right Atrium * Moderately dilated right atrium. Aortic Valve * Aortic valve not well visualized. * Focal areas of calcification noted. * No aortic regurgitation. * No aortic stenosis. Mitral Valve * Mild mitral annular calcification. * No mitral regurgitation. * No mitral stenosis. * Redundant chordae tendoneae with prolpase into the LVOT. No hemodynamic significance. Tricuspid Valve * Normal tricuspid valve structure and function. * Trace tricuspid regurgitation. * No evidence of pulmonary hypertension. Pulmonic Valve * Pulmonic valve is not well visualized. * No pulmonic regurgitation. Aorta * Normally sized aortic root. Pericardium * The pericardium appears normal. IVC * Normal IVC dimensions and inspiratory collapse. Device lead * A device lead was visualized in the right atrium and right ventricle. Pulmonary Artery * Normal visualized portions of the main pulmonary artery. Consult Discharge Plan - Plan Referrals: Cornelia Swanson MD [Primary Care Provider] - <Piter Johnson - Last Filed: 08/12/17 14:12> Date of Encounter: 08/12/17 - Constitutional Vitals: Temp Pulse Resp BP Pulse Ox 97.8 F 75 16 114/75 96 08/12/17 11:09 08/12/17 11:09 08/12/17 11:09 08/12/17 11:09 08/12/17 11:09 Internal Medicine: Result - Labs CBC & Chem 7: 08/12/17 05:55 08/12/17 05:55 Labs: Short CBC 08/12/17 Range/Units 05:55 WBC 11.9 H (4.3-11.1) K/mcL Hgb 12.0 L (12.9-16.9) g/dL Hct 37.2 L (37.5-50.1) % Plt Count 345 (140-400) K/mcL Neutrophils # 8.2 (1.6-8.9) K/mcL BMP 08/12/17 05:55 Sodium 138 Potassium 3.2 L Chloride 104 Carbon Dioxide 26 BUN 15 Creatinine 0.67 L Glucose 74 Calcium 8.8 - ABG Interpretation ABG results: PT/INR, D-dimer PT 16.0 Seconds (9.4-12.1) H 08/12/17 05:55 - Impressions Impressions Echocardiogram 08/11/17 11:32 Impressions: LVEF 55-60%. Normal LV chamber size, wall thickness and function. Indeterminate diastolic function. Normal right ventricular structure and function. No evidence of pulmonary hypertension. A device lead was visualized in the right atrium and right ventricle. No significant valvular dysfunction. Left Ventricular Wall Motion: Rest Echo Findings All wall segments showed normal motion. Findings: Study Quality * Technically adequate exam. ECG Findings * Rhythm appeared to be atrial flutter. Bundle branch block noted. Left Ventricle * LVEF 55-60%. * Normal LV chamber size, wall thickness and function. * Indeterminate diastolic function. * Atypical septal motion consistent with bundle branch block. Right Ventricle * Normal right ventricular structure and function. Left Atrium * Moderately dilated left atrium. Right Atrium * Moderately dilated right atrium. Aortic Valve * Aortic valve not well visualized. * Focal areas of calcification noted. * No aortic regurgitation. * No aortic stenosis. Mitral Valve * Mild mitral annular calcification. * No mitral regurgitation. * No mitral stenosis. * Redundant chordae tendoneae with prolpase into the LVOT. No hemodynamic significance. Tricuspid Valve * Normal tricuspid valve structure and function. * Trace tricuspid regurgitation. * No evidence of pulmonary hypertension. Pulmonic Valve * Pulmonic valve is not well visualized. * No pulmonic regurgitation. Aorta * Normally sized aortic root. Pericardium * The pericardium appears normal. IVC * Normal IVC dimensions and inspiratory collapse. Device lead * A device lead was visualized in the right atrium and right ventricle. Pulmonary Artery * Normal visualized portions of the main pulmonary artery. - Attending Attestation I examined this patient and my medical decision-making was reviewed with the Resident Physician on 08/12/17. I agree with the documented findings, disposition and treatment plan as described except to the extent set forth below. Seen and examined at bedside. He is 72-year-old male with medical history of atrial fibrillation with pacemaker, hyperlipidemia. He is admitted and being managed for atrial fibrillation with rapid ventricular response, hypertensive urgency, and acute bronchitis. He has no new complains HR is controlled at rest, uncontrolled on exertion Chest symptoms have improved Physical examination vital signs are stable, afebrile, blood pressure controlled , alert oriented 3, chest exam CTAB, no rhonchi, no crackles, no wheezes, abdomen is soft flat and non-tender, no pedal edema. Heart sounds S1 and S2 regular but rate is controlled. Labs and imaging reviewed: leukocytosis improved. INR subtherapeutic. ECHO noted, unremarkable Assessment: Acute viral bronchitis, Afib with RVR, Uncontrolled HTN Continue current care D/C IV cardizem ambulate Rest as in resident physician's documentation
[2017-08-12] MEDS ORDERED: *HR* Warfarin 7.5 MG TABLET PO ONE (18:00)
[2017-08-12] MEDS ORDERED: *HR* Warfarin 5 MG TABLET PO SCH (18:00)
[2017-08-12] MEDS ORDERED: *HR* Metoprolol 5 MG/5 ML VIAL IVP ONE (18:57)
[2017-08-12] MEDS: Melatonin 3 MG TABLET PO PRN (21:22)
[2017-08-13] MEDS: Azithromycin 500 MG in D5% in Water 250 ML IVPB SCH (03:53)
[2017-08-13] MEDS: Ipratropium/Albuterol Neb 3 ML IH SCH ×2 (04:27→10:10)
[2017-08-13 06:39] LABS: Hematocrit 36.1 % (37.5-50.1); Mean Corpuscular HGB Conc 33.2 g/dL (31.6-35.5); Mean Corpuscular Hemoglobin 32.2 pg (28.0-33.3); Mean Corpuscular Volume 96.8 fL (83.0-100.0); Platelet Count 324 K/mcL (140-400); Red Blood Count 3.73 M/mcL (4.19-5.50); Red Cell Distribution Width 13.2 % (11.5-14.5)
[2017-08-13 06:41] LABS: INR 1.4; Prothrombin Time 15.2 Seconds (9.4-12.1)
[2017-08-13 06:58] LABS: BUN/Creatinine Ratio 29 (6-26); Blood Urea Nitrogen 19 mg/dL (8-23); Calcium 8.7 mg/dL (8.6-10.3); Carbon Dioxide 24 mEq/L (23-29); Chloride 105 mEq/L (98-107); Glucose 76 mg/dL (70-105); Osmolality,Calculated 283 (280-300); Potassium 3.7 mEq/L (3.5-5.1); Sodium 136 mEq/L (136-145); eGFR For African Americans > 60 (> 60); eGFR For Non-African Americans > 60 (> 60)
[2017-08-13] MEDS: Metoprolol 100 MG TABLET PO SCH (09:11)
[2017-08-13] MEDS: Aspirin 81 MG TAB.CHEW PO SCH (09:11)
[2017-08-13] MEDS: Diltiazem CD (24hr) 180 MG CAPSULE PO SCH (09:11)
[2017-08-13] MEDS: predniSONE 20 MG TABLET PO SCH (09:11)
[2017-08-13] MEDS ORDERED: dilTIAZem HCl 60 MG TABLET PO ONE (10:08)
[2017-08-13 10:58] VITALS: BP 110/74
[2017-08-13] MEDS ORDERED: *HR* Warfarin 10 MG TABLET PO ONE (11:32)
--- NOTE | 2017-08-13 11:32 | Discharge Summary ---
<Cj Gonzalez - Last Filed: 08/13/17 11:26> Date of Encounter: 08/13/17 Time of Encounter: 09:45 - Discharge Diagnosis (1) Atrial fibrillation with RVR Priority: Primary Status: Acute (2) Acute bronchitis Priority: Primary Status: Acute Qualifiers: Bronchitis organism: other organism Qualified Code(s): J20.8 - Acute bronchitis due to other specified organisms (3) HLD (hyperlipidemia) Priority: Secondary Status: Acute Qualifiers: Hyperlipidemia type: pure hypercholesterolemia Qualified Code(s): E78.00 - Pure hypercholesterolemia, unspecified; E78.0 - Pure hypercholesterolemia (4) Essential hypertension Priority: Secondary Status: Acute (5) Cardiac pacemaker in situ Priority: Secondary Status: Chronic (6) Anticoagulated on Coumadin Priority: Secondary Status: Chronic (7) Anemia Priority: Secondary Status: Acute Qualifiers: Anemia type: iron deficiency Iron deficiency anemia type: unspecified iron deficiency Qualified Code(s): D50.9 - Iron deficiency anemia, unspecified (8) Tobacco abuse Priority: Secondary Status: Chronic (9) Hypokalemia Priority: Secondary Status: Resolved - Discharge Medications Prescriptions: Azithromycin [Zithromax Tri-Raymond] 500 mg PO ONCE #1 tablet predniSONE [PredniSONE] 40 mg PO DAILY 1 Days #1 tablet Home Medications: Aspirin 81 mg PO DAILY 06/27/16 [History] Metoprolol [Lopressor] 100 mg PO BID #30 07/20/16 [Rx] Benzonatate [Tessalon] 100 mg PO TID 08/10/17 [History] Carboxymethylcellulose Sodium [Refresh Tears] 1 drop OP QID 08/10/17 [History] Warfarin [Coumadin] 5 mg PO MOWESA 08/10/17 [History] Warfarin [Coumadin] 7.5 mg PO SUTUTHFR 08/10/17 [History] Atorvastatin [Lipitor] 40 mg PO HS tablet 08/13/17 [Rx] Azithromycin [Zithromax Tri-Raymond] 500 mg PO ONCE #1 tablet 08/13/17 [Rx] Diltiazem CD (24hr) [Cardizem CD] 240 mg PO DAILY #60 cap.er.24h 08/13/17 [Rx] predniSONE [PredniSONE] 40 mg PO DAILY 1 Days #1 tablet 08/13/17 [Rx] Allergies/Adverse Reactions: 3 Allergy/AdvReac Type Severity Reaction Status Date / Time Sulfa (Sulfonamide Allergy Rash Verified 08/10/17 08:58 Antibiotics) Procedures/tests Complete & Pending: Procedures Performed prior 72 hours Category Date Time Status EKG [ECG 12 lead ECG] [ECG] Stat Y 08/11/17 04:37 Completed EV echocardiogram Routine Y 08/11/17 11:32 Completed Date of admission: 08/10/17 03:10 Primary care physician: Cornelia Donald Discharging clinician: Cj Gonzalez Anticipated date of discharge: 08/13/17 - Patient Status Disposition: Home, Self-Care Condition: Good Functional capacity at discharge: independent ambulation Overall status at discharge: patient is progressing back to baseline - Discharge Instructions Follow Up With: Cornelia Swanson MD [Primary Care Provider] - Saran Jerez MD [Partnered Physician] - - Diet and Activity Activity: resume usual activities as tolerated Diet: advance to your usual diet Hospital course: Mr. Kwok is a 72 year old male admitted on 08/10/17 with HR into the 130s and symptoms including lightheadedness and SOB. He was diagnosed the preceding days with acute bronchitis at the MD. He was treated with azithromycin and prednsione x4 days, with a final day of therapy to be done at home. He had initially been on a cardizem drip, which had been able to control his rate at rest. He was switched to an oral dose of 180, which kept the rate below 130, but he was asymptomatic at those times. His dose will be increased to 240 mg at home, and the patient has instructions to check his blood pressure regularly. He has a follow up appointment with his PCP tomorrow. We will also be referring for cardiology follow up. His INR has been steadily decreasing since he missed a dose on his first day of admission. He will be given 10 mg today and is to return to his regular schedule of alternating 7.5 and 5 mg. - Time Spent with Patient Total time spent providing and/or coordinating discharge services: - Constitutional Vitals: Temp Pulse Resp BP Pulse Ox 97.7 F 82 18 110/74 95 08/13/17 10:58 08/13/17 10:58 08/13/17 10:58 08/13/17 10:58 08/13/17 10:58 General appearance: Present: cooperative, A&O X 3, no acute distress, answers questions appropriately - Head Head exam: Present: atraumatic, normal inspection, normocephalic - ENT ENT exam: Present: mucous membranes moist - Neck Neck exam general surgery: Present: trachea midline - Respiratory Respiratory exam: Present: CTAB. Absent: accessory muscle use, respiratory distress - Cardiovascular Cardiovascular exam: Present: irregular rhythm, +S1, +S2, tachycardia (mild) - Extremities Exam Extremities exam: Absent: pedal edema - Psychiatric Psychiatric exam: Present: normal affect, normal mood. Absent: agitated, anxious - Skin Skin exam: Present: dry, warm <Piter Johnson T - Last Filed: 08/13/17 12:14> Date of Encounter: 08/13/17 Procedures/tests Complete & Pending: Procedures Performed prior 72 hours Category Date Time Status EKG [ECG 12 lead ECG] [ECG] Stat Y 08/11/17 04:37 Completed EV echocardiogram Routine Y 08/11/17 11:32 Completed Date of admission: 08/10/17 03:10 Primary care physician: Cornelia [facility] course: Mr. Kwok is a 72 year old male - Time Spent with Patient Total time spent providing and/or coordinating discharge services: Greater than 30 minutes - Constitutional Vitals: Temp Pulse Resp BP Pulse Ox 97.7 F 82 18 110/74 95 08/13/17 10:58 08/13/17 10:58 08/13/17 10:58 08/13/17 10:58 08/13/17 10:58 - Attending Attestation I examined this patient and my medical decision-making was reviewed with the Resident Physician on 08/13/17. I agree with the documented findings, disposition and treatment plan as described except to the extent set forth below. Seen and examined at bedside. He is 72-year-old male with medical history of atrial fibrillation with pacemaker, hyperlipidemia. He is admitted and being managed for atrial fibrillation with rapid ventricular response, hypertensive urgency, and acute bronchitis. He has no new complains HR is controlled at rest, uncontrolled on exertion, asymptomatic He has no new complains, seen at bedside with family Chest symptoms have improved INR has been subtherapeutic, he missed a dose on admission Physical examination vital signs are stable, afebrile, blood pressure controlled , alert oriented 3, chest exam CTAB, no rhonchi, no crackles, no wheezes, abdomen is soft flat and non-tender, no pedal edema. Heart sounds S1 and S2 regular but rate is controlled. Labs and imaging reviewed: leukocytosis secondary to steroids. INR subtherapeutic. ECHO noted, unremarkable. Patient may be discharged lona with 240mg of cardizem , he states he has a BP machine at home and will monitor his blood pressure He is educated to take one dose of 10mg warfarin tonight . He has an appointment with his PCP by 1pm tomorrow 08/13 and will have his INR checked at that visit He verbalized understanding Rest as in resident physician's documentation
== END 2017-08-13 13:25 | disposition home or self-care (01) | DRG 309 ==
LOC: EMEROO 00:49 → 2ANU 00:49 → SUATTDRO 03:10 → 2ANU 03:45
PROVIDERS: ADMIT Internal Medicine Hematology & Oncology; ATTEND Internal Medicine

== ENCOUNTER 2017-08-13 22:01 | Observation (INO) ==
[2017-08-13] MEDS ORDERED: 0.9 % Sodium Chloride 500 ML IVC ONE (22:12)
--- NOTE | 2017-08-13 22:12 | Emergency Department Note ---
Disposition Clinical Impression: Atrial fibrillation with RVR, Subtherapeutic anticoagulation Disposition: Admitted As Inpatient Condition: Fair General Adult HPI - General Chief complaint: ED Chest Pain Stated complaint: CP, fast heart rate Time Seen by Provider: 08/13/17 22:11 - Related Data Home Medications Medication Instructions Recorded Confirmed Aspirin 81 mg PO DAILY 06/27/16 08/10/17 Benzonatate [Tessalon] 100 mg PO TID 08/10/17 08/10/17 Carboxymethylcellulose Sodium 1 drop OP QID 08/10/17 08/10/17 [Refresh Tears] Warfarin [Coumadin] 5 mg PO MOWESA 08/10/17 08/10/17 Warfarin [Coumadin] 7.5 mg PO SUTUTHFR 08/10/17 08/10/17 Previous Rx's Medication Instructions Recorded Metoprolol [Lopressor] 100 mg PO BID #30 07/20/16 Atorvastatin [Lipitor] 40 mg PO HS tablet 08/13/17 Azithromycin [Zithromax Tri-Raymond] 500 mg PO ONCE #1 tablet 08/13/17 Diltiazem CD (24hr) [Cardizem CD] 240 mg PO DAILY #60 cap.er.24h 08/13/17 predniSONE [PredniSONE] 40 mg PO DAILY 1 Days #1 tablet 08/13/17 Allergies Allergy/AdvReac Type Severity Reaction Status Date / Time Sulfa (Sulfonamide Allergy Rash Verified 08/10/17 08:58 Antibiotics) Past Medical History - Past Medical History Medical history: Reports: atrial fibrillation, COPD, hyperlipidemia, hypertension, TIA Surgical history: Reports: orthopedic, other, pacemaker/AICD Psychiatric history: Reports: no psych history - Social History Smoking Status: Current every day smoker Smokeless Tobacco Status: No Alcohol use: Reports: heavy Drug use: Reports: none Course Vital Signs Temperature 98.4 F 08/13/17 22:06 Pulse Rate 125 08/13/17 22:06 Respiratory Rate 18 08/13/17 22:06 Blood Pressure 105/93 08/13/17 22:06 O2 Sat by Pulse Oximetry 96 08/13/17 22:06 Temperature 97.6 F 08/14/17 00:02 Pulse Rate 87 08/14/17 00:02 Respiratory Rate 18 08/14/17 00:02 Blood Pressure 135/88 08/14/17 00:02 O2 Sat by Pulse Oximetry 96 08/14/17 00:02 Oxygen Delivery Oxygen Delivery Room Air Medical Decision Making - Lab Data Result diagrams: 08/13/17 22:15 08/13/17 22:15 Lab Results 08/13/17 08/13/17 08/13/17 Range/Units 22:15 22:15 22:15 WBC 14.2 H (4.3-11.1) K/mcL RBC 3.91 L (4.19-5.50) M/mcL Hgb 12.7 L (12.9-16.9) g/dL Hct 37.7 (37.5-50.1) % MCV 96.4 (83.0-100.0) fL MCH 32.5 (28.0-33.3) pg MCHC 33.7 (31.6-35.5) g/dL RDW 13.2 (11.5-14.5) % Plt Count 362 (140-400) K/mcL MPV 8.8 L (9.4-12.4) fL Immature Gran % 0.7 (0-4) % Seg Neutrophils % 82.6 % Lymphocytes % 10.6 % Monocytes % 5.9 % Eosinophils % 0.1 % Basophils % 0.1 % Neutrophils # 11.7 H (1.6-8.9) K/mcL Lymphocytes # 1.5 (0.6-4.6) K/mcL Monocytes # 0.8 (0.0-1.3) K/mcL Eosinophils # 0.0 (0.0-0.6) K/mcL Basophils # 0.0 (0.0-0.2) K/mcL PT 19.5 H (9.4-12.1) Seconds INR 1.8 APTT 27.9 (26.0-36.0) Seconds Sodium (136-145) mEq/L Potassium (3.5-5.1) mEq/L Chloride (98-107) mEq/L Carbon Dioxide (23-29) mEq/L BUN (8-23) mg/dL Creatinine (0.70-1.30) mg/dL Est GFR ( Amer) (> 60) Est GFR (Non-Af Amer) (> 60) BUN/Creatinine Ratio (6-26) Glucose (70-105) mg/dL Calculated Osmolality (280-300) Calcium (8.6-10.3) mg/dL Troponin I (< 0.04) ng/mL B-Natriuretic Peptide 243 H (Less than 100) pg/mL 08/13/17 08/13/17 Range/Units 22:15 22:15 WBC (4.3-11.1) K/mcL RBC (4.19-5.50) M/mcL Hgb (12.9-16.9) g/dL Hct (37.5-50.1) % MCV (83.0-100.0) fL MCH (28.0-33.3) pg MCHC (31.6-35.5) g/dL RDW (11.5-14.5) % Plt Count (140-400) K/mcL MPV (9.4-12.4) fL Immature Gran % (0-4) % Seg Neutrophils % % Lymphocytes % % Monocytes % % Eosinophils % % Basophils % % Neutrophils # (1.6-8.9) K/mcL Lymphocytes # (0.6-4.6) K/mcL Monocytes # (0.0-1.3) K/mcL Eosinophils # (0.0-0.6) K/mcL Basophils # (0.0-0.2) K/mcL PT (9.4-12.1) Seconds INR APTT (26.0-36.0) Seconds Sodium 134 L (136-145) mEq/L Potassium 4.2 (3.5-5.1) mEq/L Chloride 106 (98-107) mEq/L Carbon Dioxide 22 L (23-29) mEq/L BUN 26 H (8-23) mg/dL Creatinine 0.67 L (0.70-1.30) mg/dL Est GFR ( Amer) > 60 (> 60) Est GFR (Non-Af Amer) > 60 (> 60) BUN/Creatinine Ratio 39 H (6-26) Glucose 118 H (70-105) mg/dL Calculated Osmolality 284 (280-300) Calcium 8.8 (8.6-10.3) mg/dL Troponin I < 0.03 (< 0.04) ng/mL B-Natriuretic Peptide (Less than 100) pg/mL Critical Care Time Critical Care Time: Yes Total Critical Care Time: 30 Attestation: The high probability of a clinically significant, sudden or life threatening deterioration of the [] system(s) required my full and direct attention, intervention and personal management. The aggregate critical care time was [] minutes. This time is in addition to time spent performing reported procedures but includes the following: [] Data Review and interpretation [] Patient assessment and monitoring of vital signs [] Documentation [] Medication orders and management Attestation Statement - Attestation Attestation: I examined this patient and my medical decision-making was reviewed with the Resident Physician. I agree with the documented findings, disposition and treatment plan as described except to the extent set forth below. [id number] time provided Patient arrives complaining of palpitations. He has a known history of atrial fibrillation and takes Coumadin. 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 Patient does not appear in any acute distress. I evaluated him in conjunction with the resident physician Dr. Parham
--- NOTE | 2017-08-13 22:16 | Emergency Department Note ---
Disposition Clinical Impression: Atrial fibrillation with RVR, Subtherapeutic anticoagulation Disposition: Admitted As Inpatient Condition: Fair Forms: ED Satisfaction Letter Time of Disposition: 22:57 General Adult HPI - General Chief complaint: ED Chest Pain Stated complaint: CP, fast heart rate Time Seen by Provider: 08/13/17 22:11 Source: patient Mode of arrival: wheelchair Limitations: no limitations Nursing Notes Reviewed: Yes Vital Signs Reviewed: Yes - History of Present Illness HPI Narrative: 72-year-old male with history of A. fib on Coumadin, hypertension presents for evaluation of a fast heart rate. Patient was recently admitted over the past week and discharged earlier today due to A. fib RVR. Per the patient's son states that they did increase his Cardizem prior to discharge. Patient states that following discharge she continued to have a rapid heart rate. Noted to be up in the 140s. Patient states that he took his prescribed medications. Patient reports some chest pressure. Also reports some dyspnea. No fevers or cough. Patient does note the palpitations. Patient is taking his other prescribed medications as directed. No abdominal pain. No nausea vomiting. - Related Data Home Medications Medication Instructions Recorded Confirmed Aspirin 81 mg PO DAILY 06/27/16 08/10/17 Benzonatate [Tessalon] 100 mg PO TID 08/10/17 08/10/17 Carboxymethylcellulose Sodium 1 drop OP QID 08/10/17 08/10/17 [Refresh Tears] Warfarin [Coumadin] 5 mg PO MOWESA 08/10/17 08/10/17 Warfarin [Coumadin] 7.5 mg PO SUTUTHFR 08/10/17 08/10/17 Previous Rx's Medication Instructions Recorded Metoprolol [Lopressor] 100 mg PO BID #30 07/20/16 Atorvastatin [Lipitor] 40 mg PO HS tablet 08/13/17 Azithromycin [Zithromax Tri-Raymond] 500 mg PO ONCE #1 tablet 08/13/17 Diltiazem CD (24hr) [Cardizem CD] 240 mg PO DAILY #60 cap.er.24h 08/13/17 predniSONE [PredniSONE] 40 mg PO DAILY 1 Days #1 tablet 08/13/17 Allergies Allergy/AdvReac Type Severity Reaction Status Date / Time Sulfa (Sulfonamide Allergy Rash Verified 08/10/17 08:58 Antibiotics) All systems ED: reviewed and negative except as stated. Constitutional: Reports: as per HPI. Denies: fever Eyes: Reports: as per HPI ENT ED: Reports: as per HPI Cardiovascular: Reports: as per HPI, chest pain, palpitations Respiratory: Reports: as per HPI, dyspnea. Denies: cough Gastrointestinal: Reports: as per HPI. Denies: abdominal pain, nausea, vomiting Genitourinary: Reports: as per HPI Musculoskeletal: Reports: as per HPI Integumentary: Reports: as per HPI Neurological: Reports: as per HPI Psychiatric: Reports: as per HPI Endocrine: Reports: as per HPI Hematological/Lymphatic: Reports: as per HPI Past Medical History - Past Medical History Medical history: Reports: atrial fibrillation, COPD, hyperlipidemia, hypertension, TIA Surgical history: Reports: orthopedic, other, pacemaker/AICD Psychiatric history: Reports: no psych history - Social History Smoking Status: Current every day smoker Smokeless Tobacco Status: No Alcohol use: Reports: heavy Drug use: Reports: none Physical Exam - General Limitations: no limitations General appearance: alert, in no apparent distress - Head Head exam: atraumatic, normocephalic, normal inspection - Eye Eye exam: Present: normal appearance, PERRL, EOMI - ENT ENT exam: normal exam, normal oropharynx, mucous membranes moist - Neck Neck exam: Present: normal inspection, full ROM, trachea midline - Chest Chest inspection: Present: normal inspection, symmetric chest wall rise - Respiratory Respiratory exam: Present: normal lung sounds bilaterally. Absent: respiratory distress - Cardiovascular Cardiovascular exam: Present: tachycardia, irregular rhythm. Absent: systolic murmur - Abdominal Exam Abdominal exam: Present: soft, Non-Tender - Extremities Exam Extremities exam: Present: normal inspection. Absent: pedal edema - Back Exam Back exam: Present: normal inspection - Neurological Exam Neurological exam: Present: alert, oriented X3 - Skin Skin exam: Present: warm, dry, intact, normal color Course Course Narrative: Patient seen and examined. Patient appears to be in no acute distress. Patient 's heart rate was irregular regular on the monitor noted to be in the 130s to 120s. Patient's blood pressure was normotensive. Patient will get basic lab work including cardiac evaluation. Disposition likely admission. Patient's records reviewed show that he did have an echo with EF of 5560%. The medication adjustment was increasing the Cardizem to 240 mg daily. - Reevaluation(s) Reevaluation #1: Patient's heart rate responded to the Cardiazem 10mg Time: 22:29 Reevaluation #2: Repeat EKG shows A. fib at a rate of 93. Does have a left anterior fascicular block consistent with prior EKGs. EKG is otherwise similar to prior EKGs. Time: 22:40 Vital Signs Temperature 98.4 F 08/13/17 22:06 Pulse Rate 125 08/13/17 22:06 Respiratory Rate 18 08/13/17 22:06 Blood Pressure 105/93 08/13/17 22:06 O2 Sat by Pulse Oximetry 96 08/13/17 22:06 Temperature 98.4 F 08/13/17 22:06 Pulse Rate 103 08/13/17 22:25 Respiratory Rate 16 08/13/17 22:25 Blood Pressure 102/86 08/13/17 22:25 O2 Sat by Pulse Oximetry 94 08/13/17 22:25 Oxygen Delivery Oxygen Delivery Room Air Medical Decision Making - Lab Data Result diagrams: 08/13/17 22:15 08/13/17 22:15 Lab Results 08/13/17 08/13/17 08/13/17 Range/Units 22:15 22:15 22:15 WBC 14.2 H (4.3-11.1) K/mcL RBC 3.91 L (4.19-5.50) M/mcL Hgb 12.7 L (12.9-16.9) g/dL Hct 37.7 (37.5-50.1) % MCV 96.4 (83.0-100.0) fL MCH 32.5 (28.0-33.3) pg MCHC 33.7 (31.6-35.5) g/dL RDW 13.2 (11.5-14.5) % Plt Count 362 (140-400) K/mcL MPV 8.8 L (9.4-12.4) fL Immature Gran % 0.7 (0-4) % Seg Neutrophils % 82.6 % Lymphocytes % 10.6 % Monocytes % 5.9 % Eosinophils % 0.1 % Basophils % 0.1 % Neutrophils # 11.7 H (1.6-8.9) K/mcL Lymphocytes # 1.5 (0.6-4.6) K/mcL Monocytes # 0.8 (0.0-1.3) K/mcL Eosinophils # 0.0 (0.0-0.6) K/mcL Basophils # 0.0 (0.0-0.2) K/mcL PT 19.5 H (9.4-12.1) Seconds INR 1.8 APTT 27.9 (26.0-36.0) Seconds Sodium (136-145) mEq/L Potassium (3.5-5.1) mEq/L Chloride (98-107) mEq/L Carbon Dioxide (23-29) mEq/L BUN (8-23) mg/dL Creatinine (0.70-1.30) mg/dL Est GFR ( Amer) (> 60) Est GFR (Non-Af Amer) (> 60) BUN/Creatinine Ratio (6-26) Glucose (70-105) mg/dL Calculated Osmolality (280-300) Calcium (8.6-10.3) mg/dL Troponin I (< 0.04) ng/mL B-Natriuretic Peptide 243 H (Less than 100) pg/mL 08/13/17 08/13/17 Range/Units 22:15 22:15 WBC (4.3-11.1) K/mcL RBC (4.19-5.50) M/mcL Hgb (12.9-16.9) g/dL Hct (37.5-50.1) % MCV (83.0-100.0) fL MCH (28.0-33.3) pg MCHC (31.6-35.5) g/dL RDW (11.5-14.5) % Plt Count (140-400) K/mcL MPV (9.4-12.4) fL Immature Gran % (0-4) % Seg Neutrophils % % Lymphocytes % % Monocytes % % Eosinophils % % Basophils % % Neutrophils # (1.6-8.9) K/mcL Lymphocytes # (0.6-4.6) K/mcL Monocytes # (0.0-1.3) K/mcL Eosinophils # (0.0-0.6) K/mcL Basophils # (0.0-0.2) K/mcL PT (9.4-12.1) Seconds INR APTT (26.0-36.0) Seconds Sodium 134 L (136-145) mEq/L Potassium 4.2 (3.5-5.1) mEq/L Chloride 106 (98-107) mEq/L Carbon Dioxide 22 L (23-29) mEq/L BUN 26 H (8-23) mg/dL Creatinine 0.67 L (0.70-1.30) mg/dL Est GFR ( Amer) > 60 (> 60) Est GFR (Non-Af Amer) > 60 (> 60) BUN/Creatinine Ratio 39 H (6-26) Glucose 118 H (70-105) mg/dL Calculated Osmolality 284 (280-300) Calcium 8.8 (8.6-10.3) mg/dL Troponin I < 0.03 (< 0.04) ng/mL B-Natriuretic Peptide (Less than 100) pg/mL - EKG Data EKG #1 EKG attestation: Yes I reviewed and interpreted this EKG. Rate: tachycardia Rhythm: A.Fib Furlong/QRS: left axis deviation, LAHB/LAFB Q waves: v1 When compared to previous EKG there are: changes noted Interpretation: no acute changes, nonspecific ST-T wave changes S.Tyler - Cassidy Situation: Demographics Background: Presenting Complaint Assessment: Vital Signs, Course and respsone to treatment, Patient/Family Expectation Recommendation: Barrier(s) to disposition, Recommendation based on pending studies, treatments, or consults Cassidy Report Given to: Hospitalist Cassidy Repor Time: 22:57
[2017-08-13 22:23] LABS: Basophils % 0.1 %; Eosinophils % 0.1 %; Hematocrit 37.7 % (37.5-50.1); Hemoglobin 12.7 g/dL (12.9-16.9); Immature Granulocytes % 0.7 % (0-4); Lymphocytes # 1.5 K/mcL (0.6-4.6); Lymphocytes % 10.6 %; Mean Corpuscular HGB Conc 33.7 g/dL (31.6-35.5); Mean Corpuscular Hemoglobin 32.5 pg (28.0-33.3); Mean Corpuscular Volume 96.4 fL (83.0-100.0); Mean Platelet Volume 8.8 fL (9.4-12.4); Monocytes # 0.8 K/mcL (0.0-1.3); Monocytes % 5.9 %; Neutrophils # 11.7 K/mcL (1.6-8.9); Platelet Count 362 K/mcL (140-400); Red Blood Count 3.91 M/mcL (4.19-5.50); Red Cell Distribution Width 13.2 % (11.5-14.5); Segmented Neutrophils % 82.6 %
[2017-08-13 22:33] LABS: INR 1.8; Prothrombin Time 19.5 Seconds (9.4-12.1)
[2017-08-13 22:35] LABS: Activated Partial Thrombo Time 27.9 Seconds (26.0-36.0)
[2017-08-13 22:37] LABS: BUN/Creatinine Ratio 39 (6-26); Blood Urea Nitrogen 26 mg/dL (8-23); Calcium 8.8 mg/dL (8.6-10.3); Carbon Dioxide 22 mEq/L (23-29); Chloride 106 mEq/L (98-107); Glucose 118 mg/dL (70-105); Osmolality,Calculated 284 (280-300); Potassium 4.2 mEq/L (3.5-5.1); Sodium 134 mEq/L (136-145); eGFR For African Americans > 60 (> 60); eGFR For Non-African Americans > 60 (> 60)
[2017-08-14] MEDS ORDERED: Naloxone 0.4 MG/ML INJ IVP PRN (00:04)
[2017-08-14] MEDS ORDERED: Ondansetron 4 MG/2 ML VIAL IVP PRN (00:04)
--- NOTE | 2017-08-14 01:14 | Internal Med History&Physical ---
Date of Encounter: 08/13/17 Time of Encounter: 23:20 Assessment and Plan (1) Atrial fibrillation with RVR Current visit: Yes Status: Acute Rate controlled after receiving one dose of Cardizem 10mg IVP in the ER Will increase home dose of Cardizem to 360mg PO qd Metoprolol 100mg PO BID anticoagulated with coumadin monitor INR INR goal: 2-3 (2) Essential hypertension Current visit: No Status: Chronic BP within acceptable range continue home meds (3) DVT prophylaxis Current visit: No Status: Acute heparin SQ Internal Medicine - H&P: HPI Chief complaint: palpitations Admitted From: Home Plans for Post Hospital Care: Home History of present illness: Mr. Kwok is a 72 year old male with PMH Of HTN, Afib, tobacco abuse presented to the ER for evaluation of palpitations. Pt reported of being discharged from the hospital early in the morning after being treated for acute bronchitis, and new onset Afib. He reports of taking all his medications as prescribed but continued to feel weak, short of breath, and palpitations which prompted his visit to the ER. Upon arrival to the ER, he was noted to have HR sustaining in 140s. He received Cardizem 10mg IVP after which his rate was controlled. He denied any SOB, chest pain during my evaluation. Reports of being an everyday smoker, however due to recent hospitalization, his last cigarette was five days ago. Past Med Surg Social Fam HX - Past Medical History Medical history: atrial fibrillation, COPD, hyperlipidemia, hypertension, TIA Psychiatric history: no psych history - Past Surgical History Surgical History: orthopedic, other, pacemaker/AICD - Social History Smoking Status: Current every day smoker Smokeless Tobacco Status: No Alcohol use: heavy Drug use: none - Family History Mother Living Status: Hx Family Endocrine Disorder: Yes Father Living Status: Hx Family Cancer: Yes (stomach cancer) Internal Medicine - H&P: Meds Aspirin 81 mg PO DAILY 06/27/16 [History] Metoprolol [Lopressor] 100 mg PO BID #30 07/20/16 [Rx] Warfarin [Coumadin] 5 mg PO MOWESA 08/10/17 [History] Warfarin [Coumadin] 7.5 mg PO SUTUTHFR 08/10/17 [History] Diltiazem CD (24hr) [Cardizem CD] 240 mg PO DAILY #60 cap.er.24h 08/13/17 [Rx] 3 Allergy/AdvReac Type Severity Reaction Status Date / Time Sulfa (Sulfonamide Allergy Rash Verified 08/10/17 08:58 Antibiotics) All Systems PM: A 10-system review of systems was performed and is negative for pertinent findings except as documented above in the HPI. - Constitutional Constitutional: as per HPI - Constitutional Vitals: Temp Pulse Resp BP Pulse Ox 97.6 F 87 18 135/88 96 08/14/17 00:02 08/14/17 00:02 08/14/17 00:02 08/14/17 00:02 08/14/17 00:02 General appearance: Present: cooperative, A&O X 3, pleasant, no acute distress, answers questions appropriately - Head Head exam: Present: atraumatic, normocephalic - Eye Eye exam: Present: conjuntiva pink, sclera anicteric - Respiratory Respiratory exam: Present: CTAB. Absent: respiratory distress, wheezes - Cardiovascular Cardiovascular exam: Present: irregular rhythm, +S1, +S2 (ICD in place) - GI/Abdominal GI/Abdominal exam: Present: normal bowel sounds, soft, no peritoneal signs. Absent: distended, tenderness - Extremities Exam Extremities exam: Present: warm, radial pulses palpable and symmetrical. Absent : calf tenderness, cyanotic, pedal edema - Neurological Exam Neurological exam: Present: alert, oriented X3 Internal Med - H&P Results - Labs CBC & Chem 7: 08/13/17 22:15 08/13/17 22:15
[2017-08-14] MEDS ORDERED: Ipratropium/Albuterol Neb 3 ML IH PRN (01:15)
[2017-08-14 04:19] LABS: Prothrombin Time 22.1 Seconds (9.4-12.1)
[2017-08-14] MEDS ORDERED: Metoprolol 100 MG TABLET PO SCH (09:00)
[2017-08-14] MEDS ORDERED: Aspirin 81 MG TAB.CHEW PO SCH (09:00)
[2017-08-14] MEDS ORDERED: Diltiazem CD (24hr) 180 MG CAPSULE PO SCH (09:00)
[2017-08-14 11:04] VITALS: BP 101/58
--- NOTE | 2017-08-14 11:11 | Cardiology Consult Note ---
Date of Encounter: 08/14/17 Time of Encounter: 11:09 Assessment and Plan (1) Atypical atrial flutter Current Visit: Yes Status: Acute EKG on 08/13/2017 demonstrates atypical atrial fluter. Echocardiogram on 2017 demonstrates LVEF 55-60%, normal LV chamber size, wall thickness and function. Indeterminate diastolic function, normal right ventriclar structre and function. No evidence of pulmonary hypertension. A device lead visualied in the right atrium and right ventricle. No significant valvular dysfunction. -Rate controlled after 10mg bolus of cardizem in ED. -Home dose of cardizem increased to 360 mg PO qd. -Home dose of metoprolol 100mg PO BID -Continue anticoagulation with coumadin- INR goal 2-3. -Will need follow up as an outpatient. (2) Atrial fibrillation with RVR Current Visit: Yes Status: Acute Continue rate control and anticoagulation as per above for atypical atrial flutter. -FU as an oupatient. (3) Cardiac pacemaker in situ Current Visit: No Status: Chronic Continue medical management as per above. Discussion w patient/family: The assessment and plan as outlined above was discussed with the patient and/or family members who expressed understanding and agreement. All questions were answered. Thank you for involving us in the care of your patient. Please call with any questions. History of Present Illness Consult date: 08/14/17 Requesting physician: Ella Jewell Consult reason: A-fib with RVR, rate controlled, however, still symptomatic- weak tired Chief complaint: rapid heart rate History of present illness: Mr. Kwok is a 72 year old male with past medical history of hypertension and A. fib on Coumadin who presented to [facility] yesterday () for evaluation of a fast heart rate shortly after being discharged from the hospital earlier in the morning. Patient was admitted over the last week for chest palpitations. Per patient's son, patient's Cardizem was increased during hospitalization, prior to discharge yesterday, however, his rapid heart rate persisted and was noted to be in the upper 140s prior to arriving to the ED last night around 9PM. In the ED, patient reported medication compliance. He reported chest pressure, mild dyspnea, and palpitations. He denied fevers, cough, nausea, or diaphoresis. Patient's heart rate was found to be irregularly regular on the monitor at a rate of 120- 130. Patient was normotensive with a heart rate that responded to Cardizem 10 mg. Repeat EKG after Cardizem bolus showed atypical atrial flutter with a rate of 93. A left anterior fascicular block was also illustrated which was consistent with prior EKGs. Patient was admitted to the hospital. Patient's home dose of cardizem was increased to 360mg PO QD. Cardiology was consulted as patient still complaining of fatigue and weakness. This morning, patient is resting comfortably. His only complaints are of discomfort that he describes as mild achiness along the distribution of his carotid arteries bilaterally as well as achiness behind his eyes. These are his usual symptoms when his heart rate rises above 100. He does report mild epigastric pressure and discomfort. He reports weakness. Past Med Surg Social Fam HX - Past Medical History Medical history: atrial fibrillation, COPD, hyperlipidemia, hypertension, TIA Psychiatric history: no psych history - Past Surgical History Surgical History: orthopedic, other, pacemaker/AICD - Social History Smoking Status: Current every day smoker Smokeless Tobacco Status: No Alcohol use: heavy Drug use: none - Family History Mother Living Status: Hx Family Endocrine Disorder: Yes Father Living Status: Hx Family Cancer: Yes (stomach cancer) Medications and Allergies Aspirin 81 mg PO DAILY 06/27/16 [History] Metoprolol [Lopressor] 100 mg PO BID #30 07/20/16 [Rx] Warfarin [Coumadin] 5 mg PO MOWESA 08/10/17 [History] Warfarin [Coumadin] 7.5 mg PO SUTUTHFR 08/10/17 [History] Diltiazem CD (24hr) [Cardizem CD] 120 mg PO DAILY 08/14/17 [History] 3 Allergy/AdvReac Type Severity Reaction Status Date / Time Sulfa (Sulfonamide Allergy Rash Verified 08/10/17 08:58 Antibiotics) All Systems Review: A 10-system review of systems was performed and is negative for pertinent findings except as documented above in the HPI. - Constitutional Constitutional: fatigue, other (per HPI), no anorexia, no chills, no daytime sleepiness, no frequent falls, no headache(s) - EENT Eyes: no blurred vision, no loss of vision Nose, mouth and throat: no bleeding gums - Cardiovascular Cardiovascular: palpitations, rapid heart rate, other (per HPI, achiness bilaterally along the carotid disribtion), no chest pain at rest, no chest pain with exertion, no diaphoresis, no dyspnea at rest, no dyspnea on exertion, no lightheadedness, no paroxysmal nocturnal dyspnea, no syncope - Respiratory Respiratory: no cough, no dyspnea - Gastrointestinal Gastrointestinal: abdominal pain (mild LUQ/epigastric pain), no coffee ground emesis, no constipation, no diarrhea, no hematemesis, no hematochezia, no melena , no nausea - Genitourinary Genitourinary: no dysuria, no hematuria - Musculoskeletal Musculoskeletal: no abnormal gait - Neurological Neurological: no abnormal speech, no dizziness, no focal weakness, no loss of vision, no syncope, no tingling Physical Examination Vital Signs, Last 4 Hours Temp Pulse Resp BP Pulse Ox 08/14/17 11:03 97.7 F 97 20 101/58 95 08/14/17 08:02 98.3 F 99 20 123/74 95 General: Conversant, No Apparent Distress HEENT: Atraumatic, Normocephaly, Mucus Membranes Moist Neck: No JVD, Normal carotid pulses Cardiac: Reg Rate and Rhythm, Normal S1 and S2, No Murmur Lungs: Normal Breath Sounds, No Wheeze, Rales, Rhonchi Neuro: Alert and responsive, No focal deficits noted Abdomen: Soft, Non-Tender Skin: No rashes noted on visualized skin Musculoskeletal: No Chest Wall Tenderness Extremities: No Clubbing, No Cyanosis, No Edema, Normal Pulses Results 08/13/17 22:15 08/13/17 22:15 Lab Results 08/14/17 03:00 INR 2.0 Consult Discharge Plan - Plan Referrals: Cornelia Swanson MD [Primary Care Provider] -
[2017-08-14] MEDS ORDERED: Acetaminophen 325 MG TABLET PO PRN (11:35)
--- NOTE | 2017-08-14 13:40 | Electrocardiograph Report ---
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
--- NOTE | 2017-08-14 13:41 | Electrocardiograph Report ---
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
--- NOTE | 2017-08-14 15:27 | Discharge Summary ---
Date of Encounter: 08/14/17 Time of Encounter: 08:20 - Discharge Diagnosis (1) Atrial fibrillation with RVR Priority: Primary Status: Chronic Comments: The patient has chronic, intermittent A. fib. Patient was discharged from the hospital early in the morning, and has returned in the evening for continued evaluation of shortness of breath and A. fib with RVR. Patient states that he normally is in normal sinus rhythm, he is unaware of when he goes into A. fib, he is only aware when he is A. fib with RVR. When he presented to the emergency room last night, his rate was in the 140s. EKG in the emergency department prior to admission showed a flutter/ fibrillation. Chest x-ray was negative. Troponin was negative. This morning, patient reported feeling weak and tired, sometimes dizzy. Symptoms could be due to either A. fib or bronchitis/virus symptoms. Patient's home dose of Cardizem was increased to 360 mg by mouth daily, metoprolol increased to 100 mg by mouth twice a day. He is already anticoagulated with Coumadin, INR is 2.0 today. Patient was evaluated by cardiology, agree with medication adjustments and have no further inpatient cardiology recommendations. Patient is chest pain-free. He is able to ambulate easily in the hallway without respiratory distress, shortness of breath, or claudication. He is not requiring supplement oxygen. His vital signs are stable. Follow-up with cardiology as scheduled. (2) Bronchitis Priority: Secondary Status: Acute Comments: Patient was currently being treated for bronchitis through the urgent care at [facility]. His lungs are clear and he is not requiring supplemental oxygen. Patient is able to ambulate without distress in the hallway. There is no dyspnea on exertion or conversational dyspnea. He denies any productive cough, chest pain , shortness of breath. He reports that he was given some type of cough medicine as well as an antibiotic at the [facility], he is unsure which one that I was. He will continue after discharge. Patient with mild leukocytosis on admission, he has been afebrile, as well as no hypotension. Continue home medications on discharge. (3) COPD (chronic obstructive pulmonary disease) Priority: Secondary Status: Chronic Comments: Chronic. No acute exacerbation. Continue home medications. Qualifiers: COPD type: emphysema Emphysema type: panlobular Qualified Code(s): J43.1 - Panlobular emphysema (4) HTN (hypertension) Priority: Secondary Status: Chronic Comments: Well-controlled. Continue home medications. Qualifiers: Hypertension type: essential hypertension Qualified Code(s): I10 - Essential (primary) hypertension (5) DVT prophylaxis Priority: Secondary Status: Acute Comments: Heparin subcutaneous. - Discharge Medications Prescriptions: Diltiazem CD (24hr) [Cardizem CD] 360 mg PO DAILY #60 cap.er.24h Home Medications: Aspirin 81 mg PO DAILY 06/27/16 [History] Metoprolol [Lopressor] 100 mg PO BID #30 07/20/16 [Rx] Warfarin [Coumadin] 5 mg PO MOWESA 08/10/17 [History] Warfarin [Coumadin] 7.5 mg PO SUTUTHFR 08/10/17 [History] Diltiazem CD (24hr) [Cardizem CD] 360 mg PO DAILY #60 cap.er.24h 08/14/17 [Rx] Allergies/Adverse Reactions: 3 Allergy/AdvReac Type Severity Reaction Status Date / Time Sulfa (Sulfonamide Allergy Rash Verified 08/10/17 08:58 Antibiotics) Date of admission: 08/13/17 23:29 Primary care physician: Cornelia Donald Consults: 08/14/17 09:43 Consult to Cardiology [CONS] Routine Comment: Consulting Provider: Cardiology Cynthia Reason for Consult: a-fib, admitted for afib RVR, rate controlled currently, however remains symptomatic in afib, weak, tired. Time Notified: 09:44 Call Completed: Yes Discharging clinician: Skylar Bill Anticipated date of discharge: 08/14/17 - Patient Status Disposition: Home, Self-Care Condition: Good Functional capacity at discharge: independent ambulation Overall status at discharge: patient is progressing back to baseline - Discharge Instructions Follow Up With: Cornelia Swanson MD [Primary Care Provider] - Additional Instructions: Please follow up with Dr. Gunn as scheduled. Please return to the emergency department as needed for any other problems or concerns, or if your symptoms return or worsen. Please resume your normal home medications, your new prescription for Cardizem is at [facility] pharmacy on [facility]. Follow-up with cardiology as scheduled. [facility] If you become worse, please return for further evaluation. Return to her normal activities and diet as tolerated. - Diet and Activity Activity: increase activity as tolerated Diet: advance to your usual diet Hospital course: Mr. Kwok is a 72 year old male with past medical history of hyperlipidemia, A. fib, pacemaker placement, anticoagulation, hypertension, COPD, alcohol abuse, iron deficiency anemia. He was seen at urgent care at the [facility] and diagnosed with bronchitis and was given unknown antiibiotic and "cough medicine". Pt returned for increased SOB and palpitations. Initial EKG showed a-fib/flutter, rate was slowed with initial bolus of 10mg Cardizem IV. Pt was admitted for evaluation and monitoring. Home dose of Cardizem was increased from 120 mg by mouth daily to 360 mg by mouth daily. He will continue metoprolol 100 mg by mouth twice a day. He denies any chest pain and initially this morning he reported that he was feeling weak and tired. He reports he is ready to go home and he is able to ambulate easily in the hallway. He was evaluated by cardiology who agrees with medication adjustments and does not recommend any further cardiac testing at this time. He will follow up outpatient in the clinic. His labs are stable and within normal limits. He is stable and appropriate for discharge. - Time Spent with Patient Total time spent providing and/or coordinating discharge services: - Constitutional Vitals: Temp Pulse Resp BP Pulse Ox 97.7 F 97 20 101/58 95 08/14/17 11:03 08/14/17 11:03 08/14/17 11:03 08/14/17 11:03 08/14/17 11:03 General appearance: Present: cooperative, A&O X 3, pleasant, no acute distress, answers questions appropriately. Absent: mild distress - Head Head exam: Present: atraumatic, normal inspection, normocephalic - Eye Eye exam: Present: normal appearance, conjuntiva pink, sclera anicteric - Neck Neck exam general surgery: Present: supple, trachea midline. Absent: lymphadenopathy, tenderness - Respiratory Respiratory exam: Present: CTAB. Absent: accessory muscle use, chest wall tenderness, rales, respiratory distress, rhonchi, wheezes - Cardiovascular Cardiovascular exam: Present: RRR, +S1, +S2. Absent: diastolic murmur, gallop, rubs, systolic murmur - GI/Abdominal GI/Abdominal exam: Present: normal bowel sounds, soft. Absent: distended, hepatomegaly, tenderness - Extremities Exam Extremities exam: Present: normal capillary refill, warm. Absent: calf tenderness, cyanotic, pedal edema - Neurological Exam Neurological exam: Present: alert, oriented X3, no focal deficits. Absent: facial droop, speech deficit - Skin Skin exam: Present: dry, intact, normal color, warm. Absent: rash
[2017-08-14] MEDS ORDERED: Warfarin perPT PO PRN (18:00)
[2017-08-14] MEDS ORDERED: *HR* Warfarin 7.5 MG TABLET PO ONE (18:00)
== END 2017-08-14 17:04 | disposition home or self-care (01) ==
LOC: 3BNU 22:01 → EMEROO 22:01 → 3BNU 23:49
PROVIDERS: ADMIT Internal Medicine Hematology & Oncology; ATTEND Registered Nurse

== ENCOUNTER 2017-08-15 17:06 | Observation (INO) ==
[2017-08-15 18:11] LABS: Basophils % 0.1 %; Hematocrit 40.6 % (37.5-50.1); Hemoglobin 13.3 g/dL (12.9-16.9); Immature Granulocytes % 0.9 % (0-4); Lymphocytes % 7.5 %; Mean Corpuscular HGB Conc 32.8 g/dL (31.6-35.5); Mean Corpuscular Volume 97.8 fL (83.0-100.0); Mean Platelet Volume 8.7 fL (9.4-12.4); Monocytes # 0.3 K/mcL (0.0-1.3); Monocytes % 2.2 %; Neutrophils # 12.3 K/mcL (1.6-8.9); Platelet Count 416 K/mcL (140-400); Red Blood Count 4.15 M/mcL (4.19-5.50); Segmented Neutrophils % 89.3 %
--- NOTE | 2017-08-15 18:15 | Emergency Department Note ---
Disposition Clinical Impression: Atrial fibrillation and flutter Disposition: Admitted As Inpatient Condition: Fair Referrals: Cornelia Swanson MD [Primary Care Provider] - Forms: ED Satisfaction Letter Time of Disposition: 19:35 Arrhythmia/Palpitations HPI - General Chief Complaint: ED Arrhythmia/Palpitations Stated Complaint: A-Fib Time Seen by Provider: 08/15/17 17:45 Source: patient, family Limitations: no limitations Nursing Notes Reviewed: Yes Vital Signs Reviewed: Yes - History of Present Illness HPI Narrative: 72-year-old with a history of A. fib who was hospitalized here for about 5 days with and unusual A flutter. He went home and came back that night with a rapid heartbeat. At home a couple of days ago now has had a rapid heartbeat today with a rate of about 130s to 140s at home. 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 On arrival here his rate is at 103. Pt Subjective Complaint: rapid heart beat, "heart racing" Onset (ago): hour(s) Duration: intermittent Severity: moderate Context: other (Recent hospitalization) Arrhythmia History: atrial fibrillation, other (Usual A flutter) - Related Data Home Medications Medication Instructions Recorded Confirmed Aspirin 81 mg PO DAILY 06/27/16 08/15/17 Warfarin [Coumadin] 5 mg PO MOWESA 08/10/17 08/15/17 Warfarin [Coumadin] 7.5 mg PO SUTUTHFR 08/10/17 08/15/17 Previous Rx's Medication Instructions Recorded Metoprolol [Lopressor] 100 mg PO BID #30 07/20/16 Diltiazem CD (24hr) [Cardizem CD] 360 mg PO DAILY #60 cap.er.24h 08/14/17 Allergies Allergy/AdvReac Type Severity Reaction Status Date / Time Sulfa (Sulfonamide Allergy Rash Verified 08/10/17 08:58 Antibiotics) All systems ED: reviewed and negative except as stated. Constitutional: Denies: fever, chills, weakness, weight change Eyes: Denies: eye pain, eye discharge, vision change ENT ED: Denies: ear pain, throat pain, dental pain, hearing loss, epistaxis, congestion, dysphagia Cardiovascular: Reports: palpitations. Denies: chest pain, dyspnea on exertion , edema, syncope Respiratory: Denies: cough, dyspnea, wheezes, hemoptysis, stridor Gastrointestinal: Denies: abdominal pain, nausea, vomiting, diarrhea, constipation, hematemesis, melena, hematochezia Genitourinary: Denies: urgency, dysuria, frequency, hematuria Musculoskeletal: Denies: back pain, neck pain, arthralgia, myalgia Integumentary: Denies: rash, abrasion, lesions Neurological: Denies: headache, weakness, numbness, paresthesias, confusion, abnormal gait, vertigo Psychiatric: Denies: anxiety, depression, suicidal thoughts, homicidal thoughts , auditory hallucinations, visual hallucinations Endocrine: Denies: fatigue Hematological/Lymphatic: Denies: easy bleeding, easy bruising Allergic/Immunologic: Denies: facial swelling, urticaria Past Medical History - Past Medical History Medical history: Reports: atrial fibrillation, COPD, hyperlipidemia, hypertension, TIA Surgical history: Reports: orthopedic, other, pacemaker/AICD Psychiatric history: Reports: no psych history - Social History Smoking Status: Current every day smoker Smokeless Tobacco Status: No Alcohol use: Reports: heavy Drug use: Reports: none Physical Exam - General Limitations: no limitations General appearance: alert, in no apparent distress - Head Head exam: atraumatic, normocephalic, normal inspection - Eye Eye exam: Present: normal appearance, PERRL, EOMI - ENT ENT exam: normal exam, normal oropharynx, mucous membranes moist - Neck Neck exam: Present: normal inspection, full ROM, trachea midline - Chest Chest inspection: Present: normal inspection, symmetric chest wall rise - Respiratory Respiratory exam: Present: normal lung sounds bilaterally - Cardiovascular Cardiovascular exam: Present: tachycardia, irregular rhythm - Abdominal Exam Abdominal exam: Present: soft, Non-Tender. Absent: tenderness, distention, guarding, rebound, rigidity - Extremities Exam Extremities exam: Present: normal inspection, full ROM. Absent: tenderness, pedal edema - Expanded Lower Extremity Exam Neurovascular/Tendon exam: Absent: motor deficit, sensory deficit, tendon deficit - Back Exam Back exam: Present: normal inspection - Neurological Exam Neurological exam: Present: alert, oriented X3 - Psychiatric Psychiatric exam: Present: normal affect, normal mood - Skin Skin exam: Present: warm, dry, intact, normal color Course - Reevaluation(s) Reevaluation #1: 72-year-old male with a history of A. fib whose had an atypical atrial flutter comes in with the complaints of a heart rate up to the 130s 140s. Patient did take an extra dose of metoprolol at home. On arrival here his heart rate is anywhere from 95-110. The patient will be admitted to cardiology consult was obtained. Time: 19:34 - Consultations Consultation #1: Rachel with Dr. Luna, will see the patient in consult. Time: 18:30 Consultation #2: Discussed with , admit. Time: 19:37 Vital Signs Temperature 97.3 F L 08/15/17 17:07 Pulse Rate 92 08/15/17 17:07 Respiratory Rate 18 08/15/17 17:07 Blood Pressure 98/62 08/15/17 17:07 O2 Sat by Pulse Oximetry 97 08/15/17 17:07 Temperature 97.3 F L 08/15/17 17:07 Pulse Rate 70 08/15/17 18:05 Respiratory Rate 18 08/15/17 18:05 Blood Pressure 95/71 08/15/17 18:05 O2 Sat by Pulse Oximetry 95 08/15/17 18:05 Oxygen Delivery Oxygen Delivery Room Air Arrhythmia/Palpitations - Lab Data Result diagrams: 08/15/17 17:57 08/15/17 17:57 Lab Results 08/15/17 08/15/17 08/15/17 Range/Units 17:57 17:57 17:57 WBC 13.8 H (4.3-11.1) K/mcL RBC 4.15 L (4.19-5.50) M/mcL Hgb 13.3 (12.9-16.9) g/dL Hct 40.6 (37.5-50.1) % MCV 97.8 (83.0-100.0) fL MCH 32.0 (28.0-33.3) pg MCHC 32.8 (31.6-35.5) g/dL RDW 13.0 (11.5-14.5) % Plt Count 416 H (140-400) K/mcL MPV 8.7 L (9.4-12.4) fL Immature Gran % 0.9 (0-4) % Seg Neutrophils % 89.3 % Lymphocytes % 7.5 % Monocytes % 2.2 % Eosinophils % 0.0 % Basophils % 0.1 % Neutrophils # 12.3 H (1.6-8.9) K/mcL Lymphocytes # 1.0 (0.6-4.6) K/mcL Monocytes # 0.3 (0.0-1.3) K/mcL Eosinophils # 0.0 (0.0-0.6) K/mcL Basophils # 0.0 (0.0-0.2) K/mcL Sodium 131 L (136-145) mEq/L Potassium 4.3 (3.5-5.1) mEq/L Chloride 104 (98-107) mEq/L Carbon Dioxide 22 L (23-29) mEq/L BUN 28 H (8-23) mg/dL Creatinine 0.89 (0.70-1.30) mg/dL Est GFR ( Amer) > 60 (> 60) Est GFR (Non-Af Amer) > 60 (> 60) BUN/Creatinine Ratio 31 H (6-26) Glucose 124 H (70-105) mg/dL Calculated Osmolality 279 L (280-300) Calcium 8.9 (8.6-10.3) mg/dL Troponin I < 0.03 (< 0.04) ng/mL TSH 0.776 (0.340-5.600) mcIU/mL - EKG Data EKG attestation: Yes I reviewed and interpreted this EKG. Rate: tachycardia Rhythm: A. flutter Voltage: c/w LVH Interpretation: no acute changes, nonspecific ST-T wave changes
[2017-08-15 18:23] LABS: BUN/Creatinine Ratio 31 (6-26); Blood Urea Nitrogen 28 mg/dL (8-23); Calcium 8.9 mg/dL (8.6-10.3); Carbon Dioxide 22 mEq/L (23-29); Chloride 104 mEq/L (98-107); Glucose 124 mg/dL (70-105); Osmolality,Calculated 279 (280-300); Potassium 4.3 mEq/L (3.5-5.1); Sodium 131 mEq/L (136-145); eGFR For African Americans > 60 (> 60); eGFR For Non-African Americans > 60 (> 60)
[2017-08-15 18:40] LABS: Thyroid Stimulating Hormone 0.776 mcIU/mL (0.340-5.600)
[2017-08-15] MEDS ORDERED: Acetaminophen 325 MG TABLET PO ONE (19:13)
[2017-08-15] MEDS ORDERED: Naloxone 0.4 MG/ML INJ IVP PRN (20:18)
--- NOTE | 2017-08-15 20:30 | Internal Med History&Physical ---
<Omi Bullock - Last Filed: 08/16/17 00:11> Date of Encounter: 08/16/17 Time of Encounter: 20:17 Assessment and Plan (1) Atrial fibrillation and flutter Current visit: Yes Status: Acute Atrial fibrillation/flutter, currently rate controlled and on warfarin for anticoagulation Echo 08/11/17 shows LVEF 55-60 with otherwise normal findings Cardiology was consulted in the ED, Dr. Luna agreed to see the patient in the morning Continuous cardiac monitoring Continue home rate control meds Metoprolol Cardizem CD Continue Warfarin - pharmacy to dose, INR in AM Goal INR 2-3 (2) COPD (chronic obstructive pulmonary disease) Current visit: No Status: Chronic Reported history of COPD, Stable Patient is saturating appropriately on room air CXR does not show any acute cardiopulmonary process Physical exam within normal limits Monitor patient's O2 as respiratory status can impact cardiac rhythm Qualifiers: COPD type: emphysema Emphysema type: panlobular Qualified Code(s): J43.1 - Panlobular emphysema (3) Leukocytosis Current visit: No Status: Chronic Leukocytosis, appears chronic in nature WBC 13.8 on admission, no bands Patient has no indication of infection based on history or clinical presentation Continue to monitor at this time Qualifiers: Leukocytosis type: leukemoid reaction Qualified Code(s): D72.823 - Leukemoid reaction (4) HTN (hypertension) Current visit: Yes Status: Chronic BP currently controlled on home meds No modifications at this time Qualifiers: Hypertension type: essential hypertension Qualified Code(s): I10 - Essential (primary) hypertension (5) DVT prophylaxis Current visit: No Status: Acute Patient is on warfarin due to Afib/flutter Internal Medicine - H&P: HPI Chief complaint: Atrial fibrillation Admitted From: Emergency Dept Plans for Post Hospital Care: Home History of present illness: Mr. Kwok is a 72 year old male with history of afib, htn, hld, pacemaker insertion who presents to the ED for rapid heart rate related to his atrial fibrillation. He says that he was in the hospital from Monday to this past Monday due to afib with rvr, and when he was discharged the problem continued. He was apparently told by one of his doctors that in the future, if his heart rate begins to accelerate, he can just take an extra metoprolol rather than coming into the hospital. Today, while at his sister's house at around 4:30pm he noticed that his heart rate was around 130 and he had an elevated BP, so he called his [employer] admin's office and was told by a nurse to take an extra dose of metoprolol. After doing so, he recieved another phone call from the nurse saying not to do it because it may drop his HR too much, however he had already done it so she told him to go to the ED. He says that he has been having pains in his neck b/l which feel as though they've been coming from his arteries, and they radiate into his posterior head. The pain is about 5/10, and is relatively constant. Nothing makes the pain any better or worse. He's tried taking tylenol for it with no success. He denies any chest pain associated with these events. Additionally, the patient was recently treated for an episode of acute bronchitis, and he feels that he has recovered from this appropriately because he is coughing less and having decreased shortness of breath as compared to before treatment. He does say that he's had some watery stools in the past few days which are atypical for him, but no specific nausea or vomiting. He does admit to smoking 1ppd, and he drinks about 2-3 beers per day. He has no other acute complaints. Past Med Surg Social Fam HX - Past Medical History Medical history: atrial fibrillation, COPD, hyperlipidemia, hypertension, TIA Psychiatric history: no psych history - Past Surgical History Surgical History: orthopedic, other, pacemaker/AICD - Social History Smoking Status: Current every day smoker Smokeless Tobacco Status: No Alcohol use: heavy Drug use: none - Family History Mother Living Status: Hx Family Endocrine Disorder: Yes Father Living Status: Hx Family Cancer: Yes (stomach cancer) Internal Medicine - H&P: Meds Aspirin 81 mg PO DAILY 06/27/16 [History] Metoprolol [Lopressor] 100 mg PO BID #30 07/20/16 [Rx] Warfarin [Coumadin] 5 mg PO MOWESA 08/10/17 [History] Warfarin [Coumadin] 7.5 mg PO SUTUTHFR 08/10/17 [History] Diltiazem CD (24hr) [Cardizem CD] 360 mg PO DAILY #60 cap.er.24h 08/14/17 [Rx] 3 Allergy/AdvReac Type Severity Reaction Status Date / Time Sulfa (Sulfonamide Allergy Rash Verified 08/10/17 08:58 Antibiotics) All Systems PM: A 10-system review of systems was performed and is negative for pertinent findings except as documented above in the HPI. - Constitutional Constitutional: no chills, no fever(s), no night sweats - EENT Eyes: no change in vision, no discharge, no pain, no photophobia Ears: no ear discharge, no ear pain, no tinnitus Nose, mouth and throat: neck pain (b/l pain in "arteries" as per hpi), sore throat, no nasal discharge - Cardiovascular Cardiovascular ROS IM: as per HPI, irregular heart rhythm, lightheadedness, palpitations, no chest pain, no dyspnea on exertion, no edema, no paroxysmal nocturnal dyspnea, no syncope - Respiratory Respiratory: cough (chronic), dyspnea (mild, chronic), no pain on inspiration, no chest congestion - Gastrointestinal Gastrointestinal: diarrhea (watery stools x3day), no abdominal pain, no hematemesis, no hematochezia, no melena, no nausea, no vomiting - Genitourinary Genitourinary ROS male: no difficulty urinating, no hematuria, no urinary frequency - Musculoskeletal Musculoskeletal ROS IM: neck pain, no back pain, no numbness, no tingling - Integumentary Integumentary IM: no rash, no unusual bruising - Neurological Neurological ROS: no confusion, no focal weakness, no numbness - Psychiatric Psychiatric: anxiety, no confusion - Endocrine Endocrine IM: no fatigue - Hematologic/Lymphatic Hematologic/Lymphatic: no easy bleeding - Allergic/Immunologic Allergic/Immunologic: no wheezing - Constitutional Vitals: Temp Pulse Resp BP Pulse Ox 97.3 F L 79 16 106/68 99 08/15/17 17:07 08/15/17 19:39 08/15/17 19:39 08/15/17 19:39 08/15/17 19:39 Exam: Gen.: Vitals noted. No acute distress. AAOx3 HEENT: oropharynx clear, Normocephalic, atraumatic Neck: Supple. No adenopathy. No Carotid bruits noted or tenderness on palpation of areas patient complained were hurting Chest/Cardiac: Irregularly irregular, no murmur, +S1/S2. Pacemaker felt under skin, healed incision Pulmonary: CTA bilaterally, no wheezes, rales or rhonchi, equal chest expansion Abdomen: soft, nontender, BS noted, no guarding Back: Nontender throughout. Extremities: no BLE edema, no cyanosis or clubbing Neuro: A&Ox3, moves all extremities, no focal deficits Psych: Appropriate mood and behavior Internal Med - H&P Results - Labs CBC & Chem 7: 08/15/17 17:57 08/15/17 17:57 Labs: Short CBC 08/15/17 Range/Units 17:57 WBC 13.8 H (4.3-11.1) K/mcL Hgb 13.3 (12.9-16.9) g/dL Hct 40.6 (37.5-50.1) % Plt Count 416 H (140-400) K/mcL Neutrophils # 12.3 H (1.6-8.9) K/mcL BMP 08/15/17 17:57 Sodium 131 L Potassium 4.3 Chloride 104 Carbon Dioxide 22 L BUN 28 H Creatinine 0.89 Glucose 124 H Calcium 8.9 Cardiac Enzymes 08/15/17 Range/Units 17:57 Troponin I < 0.03 (< 0.04) ng/mL - Impressions ITS Impressions Chest X-Ray 08/15/17 17:11 IMPRESSION: No acute cardiopulmonary process. D/ / 08/15/2017 17:40:59 Avelino Morrison MD / alexander Interpreting Provider: Avelino Morrison MD <Neo Esposito - Last Filed: 08/16/17 01:20> Date of Encounter: 08/16/17 Internal Medicine - H&P: HPI History of present illness: Mr. Kwok is a 72 year old male All Systems PM: A 10-system review of systems was performed and is negative for pertinent findings except as documented above in the HPI. - Constitutional Vitals: Temp Pulse Resp BP Pulse Ox 97.7 F 80 17 111/67 96 08/16/17 01:08 08/16/17 01:08 08/16/17 01:08 08/16/17 01:08 08/16/17 01:08 Internal Med - H&P Results - Labs CBC & Chem 7: 08/15/17 17:57 08/15/17 17:57 - Attending Attestation I have seen and examined pt independently. I have discussed with resident physician Dr. Bullock regarding the management plan. Agree with the documentation.
[2017-08-15 21:33] LABS: INR 3.8
[2017-08-16] MEDS: Metoprolol 100 MG TABLET PO SCH ×3 (00:56→20:18)
[2017-08-16 06:16] LABS: Basophils % 0.2 %; Eosinophils # 0.1 K/mcL (0.0-0.6); Eosinophils % 0.6 %; Hematocrit 38.4 % (37.5-50.1); Hemoglobin 12.5 g/dL (12.9-16.9); Immature Granulocytes % 0.7 % (0-4); Lymphocytes # 3.2 K/mcL (0.6-4.6); Lymphocytes % 19.7 %; Mean Corpuscular HGB Conc 32.6 g/dL (31.6-35.5); Mean Corpuscular Hemoglobin 31.8 pg (28.0-33.3); Mean Corpuscular Volume 97.7 fL (83.0-100.0); Mean Platelet Volume 8.9 fL (9.4-12.4); Monocytes # 0.9 K/mcL (0.0-1.3); Monocytes % 5.4 %; Platelet Count 348 K/mcL (140-400); Red Blood Count 3.93 M/mcL (4.19-5.50); Segmented Neutrophils % 73.4 %
[2017-08-16 06:34] LABS: BUN/Creatinine Ratio 28 (6-26); Blood Urea Nitrogen 20 mg/dL (8-23); Calcium 8.8 mg/dL (8.6-10.3); Carbon Dioxide 27 mEq/L (23-29); Chloride 106 mEq/L (98-107); Glucose 83 mg/dL (70-105); Osmolality,Calculated 284 (280-300); Potassium 3.7 mEq/L (3.5-5.1); Sodium 136 mEq/L (136-145); eGFR For African Americans > 60 (> 60); eGFR For Non-African Americans > 60 (> 60)
[2017-08-16] MEDS: Aspirin 81 MG TAB.CHEW PO SCH (08:36)
[2017-08-16] MEDS: Diltiazem CD (24hr) 180 MG CAPSULE PO SCH (08:36)
--- NOTE | 2017-08-16 09:51 | Internal Med Progress Note ---
<Tawanna Bergman - Last Filed: 08/16/17 13:21> Date of Encounter: 08/16/17 Time of Encounter: 09:15 - Assessment and plan (1) Atrial fibrillation and flutter Current Visit: Yes Status: Acute Assessment and plan: Atrial fibrillation/flutter taking diltiazem and warfarin for anticoagulation Echo 08/11/17 shows LVEF 55-60 with otherwise normal findings Supratherapeutic INR today 5.1 HR 99 Plan: Cardiology was consulted, recommendations appreciated Continuous cardiac monitoring Continue home meds of Metoprolol and Cardizem Hold Warfarin (2) Headache Current Visit: Yes Status: Acute Assessment and plan: Patient reported a new headache that started yesterday. supratherapeutic INR 5.1 concern for cranial hemorrhage order head CT hold warfarin Qualifiers: Qualified Code(s): R51 - Headache (3) COPD (chronic obstructive pulmonary disease) Current Visit: No Status: Chronic Assessment and plan: History of COPD. Controlled CXR showed no acute cardiopulmonary process oxygen saturation 95% on room air Qualifiers: COPD type: emphysema Emphysema type: panlobular Qualified Code(s): J43.1 - Panlobular emphysema (4) Leukocytosis Current Visit: No Status: Chronic Assessment and plan: WBC 16.4 worsened from admission was 13.8 There is no obvious source of infection based on history of clinical presentation. Denied cough, dysuria, fever, chills, diarrhea Plan: ordered urinalysis monitor WBC Qualifiers: Leukocytosis type: leukemoid reaction Qualified Code(s): D72.823 - Leukemoid reaction (5) HTN (hypertension) Current Visit: Yes Status: Chronic Assessment and plan: History of hypertension BP controlled continue home medication of metoprolol Qualifiers: Hypertension type: essential hypertension Qualified Code(s): I10 - Essential (primary) hypertension (6) DVT prophylaxis Current Visit: No Status: Acute Assessment and plan: on anticoagulation - Subjective Interval history: Sitting up comfortably watching television. She denies chest pain shortness of breath. He does still have dizziness when exerting himself. Report neck pain and headache since yesterday. Cardiology nurse practitioner 5 patient and will discuss with Dr. Jerez at noon plan for patient. - Constitutional Vitals: Temp Pulse Resp BP Pulse Ox 97.2 F L 89 17 115/76 97 08/16/17 07:03 01/17/18 07:03 08/16/17 07:03 08/16/17 07:03 08/16/17 07:03 Exam: Gen.: Vitals noted. No acute distress. AAOx3 HEENT: oropharynx clear, Normocephalic, atraumatic Neck: Supple. No adenopathy, no bruit Cardiac: irregular, no murmur Pulmonary: CTA bilaterally, no wheezes, rales or rhonchi, equal chest expansion Abdomen: soft, nontender, Bowel sounds noted, no guarding Extremities: no BLE edema, nontender calf, no cyanosis Neuro: A&Ox3 Psych: Appropriate mood and behavior Internal Medicine: Result - Labs CBC & Chem 7: 08/16/17 05:47 08/16/17 05:47 Labs: Short CBC 08/16/17 Range/Units 05:47 WBC 16.4 H (4.3-11.1) K/mcL Hgb 12.5 L (12.9-16.9) g/dL Hct 38.4 (37.5-50.1) % Plt Count 348 (140-400) K/mcL Neutrophils # 12.0 H (1.6-8.9) K/mcL BMP 08/16/17 05:47 Sodium 136 Potassium 3.7 Chloride 106 Carbon Dioxide 27 BUN 20 Creatinine 0.71 Glucose 83 Calcium 8.8 - ABG Interpretation ABG results: PT/INR, D-dimer PT 42.0 Seconds (9.4-12.1) H D 08/15/17 21:13 Consult Discharge Plan - Plan Referrals: Cornelia Swanson MD [Primary Care Provider] - <Terry Veloz - Last Filed: 08/16/17 17:44> Date of Encounter: 08/16/17 - Constitutional Vitals: Temp Pulse Resp BP Pulse Ox 98.0 F 73 16 113/70 98 08/16/17 16:25 08/16/17 16:25 08/16/17 16:25 08/16/17 16:25 08/16/17 16:25 Internal Medicine: Result - Labs CBC & Chem 7: 08/16/17 05:47 08/16/17 05:47 Labs: Short CBC 08/16/17 Range/Units 05:47 WBC 16.4 H (4.3-11.1) K/mcL Hgb 12.5 L (12.9-16.9) g/dL Hct 38.4 (37.5-50.1) % Plt Count 348 (140-400) K/mcL Neutrophils # 12.0 H (1.6-8.9) K/mcL BMP 08/16/17 05:47 Sodium 136 Potassium 3.7 Chloride 106 Carbon Dioxide 27 BUN 20 Creatinine 0.71 Glucose 83 Calcium 8.8 Urine 08/16/17 Range/Units 13:05 Urine Color Yellow (Yellow) Urine Clarity Clear (Clear) Urine pH 6.5 (5.0-8.0) pH Units Ur Specific [place] 1.014 (1.010-1.025) Urine Protein Negative (Neg-Trace) mg/dL Urine Glucose (UA) Normal (Normal) mg/dL - ABG Interpretation ABG results: PT/INR, D-dimer PT 56.4 Seconds (9.4-12.1) H* 08/16/17 11:30 - Impressions Impressions Head CT 08/16/17 11:45 IMPRESSION: No acute intracranial hemorrhage or mass effect. Age-indeterminate small bilateral frontal lobe cortical infarcts. Extensive cerebral white matter disease progressed from 2007. D/ / Sean Camarillo MD / Sean Camarillo MD Interpreting Provider: Sean Camarillo MD - Attending Attestation I conducted a face to face diagnostic evaluation of this patient and my medical decision-making was reviewed with the Resident Physician, Dr Tawanna Bergman. I agree with the documented findings, disposition and treatment plan as described except to the extent set forth below: Patient reports a dull occipital headache. Given anticoagulation and supratherapeutic INR I will check a head CT to rule out intracranial bleed. Terry Veloz MD
--- NOTE | 2017-08-16 11:18 | Cardiology Consult Note ---
Date of Encounter: 08/16/17 Time of Encounter: 11:18 Assessment and Plan (1) Atrial fibrillation and flutter Current Visit: Yes Status: Acute Known hx of PAF, unsuccessful A-Fib ablation in the past. Hx of failed Sotalol. Previous documented discussion 09/[address] Saran Jerez mentions starting Tikosyn, but at that time pt declined. Pt now has 2 admissions within 1 week for A-Fib/Flutter RVR, symptoms of chest tightness, bilateral neck pain/headaches. Continue Cardizem CD 360mg daily and Lopressor 100mg BID. (2) Cardiac pacemaker in situ Current Visit: No Status: Chronic (3) Essential hypertension Current Visit: No Status: Chronic (4) Chest pain Current Visit: No Status: Resolved Qualifiers: Chest pain type: unspecified Qualified Code(s): R07.9 - Chest pain, unspecified Discussion w patient/family: The assessment and plan as outlined above was discussed with the patient and/or family members who expressed understanding and agreement. All questions were answered. Thank you for involving us in the care of your patient. Please call with any questions. History of Present Illness Consult date: 08/16/17 Requesting physician: Neo Esposito Consult reason: A-Fib RVR Chief complaint: dizziness/lightheadedness, chest tightness, neck pain History of present illness: Mr. Kwok is a 72 year old male with PMH significant for hypertension, CVA and Paroxysmal A-Fib with hx of unsuccessful ablation s/p PPM anticoagulated on Coumadin who presented to the hospital for rapid heart rate. He says that he was in the hospital from Monday to this past Monday due to A-Fib RVR. Reports yesterday HR was 130. Reports pain in his neck bilaterally, radiates into his posterior head, relatively constant. Nothing makes the pain any better or worse. He reports intermittent chest tightness, dizziness and lightheadedness. Upon further review, during pt's stay last week he was in atypical A-Flutter. He last saw Dr. Saran Jerez 09/30/16. At that time it was noted that pt had previously failed Sotalol. Restarting Tikosyn was discussed at that time, but pt had elected not to proceed. 12 hr tele AVG HR 83, A-Fib. Prior CV testing: Echo 08/11/17: LVEF 55-60%. Normal LV chamber size, wall thickness and function. Indeterminate diastolic function. Normal right ventricular structure and function. No evidence of pulmonary hypertension. A device lead was visualized in the right atrium and right ventricle. No significant valvular dysfunction. Negative stress test 2011. Past Med Surg Social Fam HX - Past Medical History Medical history: atrial fibrillation, COPD, hyperlipidemia, hypertension, TIA Psychiatric history: no psych history - Past Surgical History Surgical History: orthopedic, other, pacemaker/AICD - Social History Smoking Status: Current every day smoker Smokeless Tobacco Status: No Alcohol use: heavy Drug use: none - Family History Mother Living Status: Hx Family Endocrine Disorder: Yes Father Living Status: Hx Family Cancer: Yes (stomach cancer) Medications and Allergies Aspirin 81 mg PO DAILY 06/27/16 [History] Metoprolol [Lopressor] 100 mg PO BID #30 07/20/16 [Rx] Warfarin [Coumadin] 5 mg PO MOWESA 08/10/17 [History] Warfarin [Coumadin] 7.5 mg PO SUTUTHFR 08/10/17 [History] Diltiazem CD (24hr) [Cardizem CD] 360 mg PO DAILY #60 cap.er.24h 08/14/17 [Rx] 3 Allergy/AdvReac Type Severity Reaction Status Date / Time Sulfa (Sulfonamide Allergy Rash Verified 08/10/17 08:58 Antibiotics) All Systems Review: A 10-system review of systems was performed and is negative for pertinent findings except as documented above in the HPI. - Cardiovascular Cardiovascular: as per HPI, chest pain at rest, dyspnea on exertion, radiating jaw, neck or arm pain Physical Examination Vital Signs, Last 4 Hours Temp Pulse Resp BP Pulse Ox 08/16/17 10:55 97.7 F 99 17 105/73 95 Vital Signs Temp Pulse Resp BP Pulse Ox 08/16/17 10:55 97.7 F 99 17 105/73 95 08/16/17 07:03 97.2 F L 89 17 115/76 97 08/16/17 05:09 97.9 F 87 16 116/78 99 08/16/17 01:08 97.7 F 80 17 111/67 96 08/15/17 21:57 97.7 F 82 17 94/51 98 08/15/17 21:00 18 105/85 08/15/17 20:44 60 16 105/85 96 08/15/17 19:39 79 16 106/68 99 08/15/17 18:05 70 18 95/71 95 08/15/17 17:07 97.3 F L 92 18 98/62 97 Intake and Output 08/15/17 08/16/17 08/16/17 23:59 07:59 15:59 Intake Total 240 / 240 Balance 240 / 240 Intake: Oral 240 / 240 Other: Meal Breakfast Percent of Meal Consumed 100% # Voids 1 1 Weight 77.564 kg General: Conversant, No Apparent Distress HEENT: Atraumatic, Normocephaly, Mucus Membranes Moist Neck: No JVD, Normal carotid pulses Cardiac: Other (irregularly irregular) Lungs: Normal Breath Sounds, No Wheeze, Rales, Rhonchi Neuro: Alert and responsive, No focal deficits noted Abdomen: Soft, Non-Tender Skin: No rashes noted on visualized skin Musculoskeletal: No Chest Wall Tenderness Extremities: No Clubbing, No Cyanosis, No Edema, Normal Pulses Results 08/16/17 05:47 08/16/17 05:47 Lab Results 08/15/17 08/16/17 08/16/17 21:13 05:47 05:47 WBC 16.4 H Hgb 12.5 L Hct 38.4 Plt Count 348 INR 3.8 D Sodium 136 Potassium 3.7 Chloride 106 Carbon Dioxide 27 BUN 20 Creatinine 0.71 Glucose 83 Calcium 8.8 B-Natriuretic Peptide 08/16/17 05:47 WBC Hgb Hct Plt Count INR Sodium Potassium Chloride Carbon Dioxide BUN Creatinine Glucose Calcium B-Natriuretic Peptide 167 H Short CBC 08/16/17 08/15/17 Range/Units 05:47 17:57 WBC 16.4 H 13.8 H (4.3-11.1) K/mcL Hgb 12.5 L 13.3 (12.9-16.9) g/dL Hct 38.4 40.6 (37.5-50.1) % Plt Count 348 416 H (140-400) K/mcL Neutrophils # 12.0 H 12.3 H (1.6-8.9) K/mcL BMP 08/16/17 08/15/17 Range/Units 05:47 17:57 Sodium 136 131 L (136-145) mEq/L Potassium 3.7 4.3 (3.5-5.1) mEq/L Chloride 106 104 (98-107) mEq/L Carbon Dioxide 27 22 L (23-29) mEq/L BUN 20 28 H (8-23) mg/dL Creatinine 0.71 0.89 (0.70-1.30) mg/dL Glucose 83 124 H (70-105) mg/dL Calcium 8.8 8.9 (8.6-10.3) mg/dL Cardiac Enzymes 08/15/17 Range/Units 17:57 Troponin I < 0.03 (< 0.04) ng/mL Impressions Chest X-Ray 08/15/17 17:11 IMPRESSION: No acute cardiopulmonary process. D/ / 08/15/2017 17:40:59 Avelino Morrison MD / alexander Interpreting Provider: Avelino Morrison MD Active Medications Aspirin (Aspirin) 81 mg PO DAILY [facility] Stop: 02/15/18 09:01 Last Admin: 08/16/17 08:36 Dose: 81 mg Diltiazem HCl (Cardizem Cd) 360 mg PO DAILY [facility] Stop: 02/15/18 09:01 Last Admin: 08/16/17 08:36 Dose: 360 mg Metoprolol Tartrate (Lopressor) 100 mg PO BID [facility] Stop: 02/14/18 21:01 Last Admin: 08/16/17 08:36 Dose: 100 mg Naloxone HCl (Narcan) 0.4 mg IVP Q2MIN PRN PRN Reason: Opioid Reversal Stop: 02/14/18 20:19 Warfarin Sodium (Coumadin Perpt) 0 each PO DAILY@1800 PRN PRN Reason: SEE COMMENTS Stop: 02/15/18 18:01 - Imaging and Cardiology Stress Test: report reviewed Echo: report reviewed - EKG Interpretation EKG results cardiology: personally reviewed (A-Flutter rate 103), other (12 hr tele AVG HR 83, A-Fib/Flutter) Consult Discharge Plan - Plan Referrals: Cornelia Swanson MD [Primary Care Provider] -
--- NOTE | 2017-08-16 11:38 | Electrophysiology Consult Note ---
<Cayden Baker R - Last Filed: 08/16/17 13:55> Date of Encounter: 08/16/17 Time of Encounter: 11:37 Assessment and Plan (1) Atrial fibrillation and flutter Current Visit: Yes Status: Acute Known hx of PAF, unsuccessful A-Fib ablation in the past. Currently in atypical A-Flutter. Hx of failed Sotalol. Previous documented discussion 09/[address] Saran Jerez mentions starting Tikosyn if recurrence of A-Fib, but at that time pt declined. Pt now has had 3 admissions within 1 week for A-Fib/Flutter RVR, symptoms of chest tightness, bilateral neck pain/headaches in setting initially of bronchitis--likely the driving factor. Continue Cardizem CD 360mg daily and Lopressor 100mg BID. Echo 07/2017 EF preserved. Stress test 2011 negative. Anticoagulated on Coumadin, INR 5.1. Denies active bleeding. Discussed and reviewed with Dr. Saran Jerez. Gave option to pt of attempting FRANKY /DCCV (subtherapeutic INR 08/13) vs. Antiarrhythmic initiation of Tikosyn 500mcg BID (creatinine clearance 103) and then possible FRANKY/DCCV if warranted. Explained that he has higher chance of maintaining SR if Tikosyn is started. Pt needs kept for a minimum of 72 hours after first dose of Tikosyn. This was explained to pt and he is aware. He prefers to stay for Tikosyn initiation. Start Tikosyn this evening, obtain EKGs 2 hours after each dose for QTc monitoring (keep QTc <500ms and <15% from baseline). Baseline EKG 08/15/17 A-Flutter RVR rate 103, QTc 385ms. Daily BMPs to monitor renal function as well. Will continue to follow. The earliest that pt will be able to be discharged is Monday evening. (2) Cardiac pacemaker in situ Current Visit: Yes Status: Chronic Follows with device clinic. (3) Essential hypertension Current Visit: Yes Status: Chronic Controlled on current meds. (4) Chest pain Current Visit: Yes Status: Acute Reports chest tightness intermittently over the past 2 weeks, not alleviated or exacerbated by anything in particular. Troponin negative x 1. Stress test 2011 negative. Suspect secondary to A-Fib/Flutter RVR. Qualifiers: Chest pain type: unspecified Qualified Code(s): R07.9 - Chest pain, unspecified Discussion w patient/family: The assessment and plan as outlined above was discussed with the patient and/or family members who expressed understanding and agreement. All questions were answered. Thank you for involving us in the care of your patient. Please call with any questions. I will discuss all the above with Dr. Saran Jerez and make changes as necessary. History of Present Illness Consult date: 08/16/17 Requesting physician: Neo Esposito Consult reason: PAF Chief complaint: chest and neck tightness History of present illness: Mr. Kwok is a 72 year old male with PMH significant for hypertension, CVA and SVT, PAF with hx of unsuccessful ablation s/p PPM anticoagulated on Coumadin who presented to the hospital for rapid heart rate. He says that he was in the hospital from Monday to this past Monday due to A-Fib RVR. Reports yesterday HR was 130. Reports pain in his neck bilaterally, radiates into his posterior head, relatively constant. Nothing makes the pain any better or worse. He reports intermittent chest tightness, dizziness and lightheadedness. Upon further review, during pt's stay last week he was in atypical A-Flutter, first reoccurrence since 08/2016. He last saw Dr. Saran Jerez 09/30/16. At that time it was noted that pt had previously failed Sotalol. Starting Tikosyn was discussed at that time, but pt had elected not to proceed unless he had recurrent PAF. 12 hr tele AVG HR 83, A-Fib/Flutter. Prior CV testing: Echo 08/11/17: LVEF 55-60%. Normal LV chamber size, wall thickness and function. Indeterminate diastolic function. Normal right ventricular structure and function. No evidence of pulmonary hypertension. A device lead was visualized in the right atrium and right ventricle. No significant valvular dysfunction. Negative stress test 2011. Past Med Surg Social Fam HX - Past Medical History Medical history: atrial fibrillation, COPD, hyperlipidemia, hypertension, TIA Psychiatric history: no psych history - Past Surgical History Surgical History: orthopedic, other, pacemaker/AICD - Social History Smoking Status: Current every day smoker Smokeless Tobacco Status: No Alcohol use: heavy Drug use: none - Family History Mother Living Status: Hx Family Endocrine Disorder: Yes Father Living Status: Hx Family Cancer: Yes (stomach cancer) Medications and Allergies Aspirin 81 mg PO DAILY 06/27/16 [History] Metoprolol [Lopressor] 100 mg PO BID #30 07/20/16 [Rx] Warfarin [Coumadin] 5 mg PO MOWESA 08/10/17 [History] Warfarin [Coumadin] 7.5 mg PO SUTUTHFR 08/10/17 [History] Diltiazem CD (24hr) [Cardizem CD] 360 mg PO DAILY #60 cap.er.24h 08/14/17 [Rx] 3 Allergy/AdvReac Type Severity Reaction Status Date / Time Sulfa (Sulfonamide Allergy Rash Verified 08/10/17 08:58 Antibiotics) All Systems Review: A 10-system review of systems was performed and is negative for pertinent findings except as documented above in the HPI. - Cardiovascular Cardiovascular: as per HPI, chest pain at rest, dyspnea on exertion, radiating jaw, neck or arm pain Physical Examination Vital Signs, Last 4 Hours Temp Pulse Resp BP Pulse Ox 08/16/17 10:55 97.7 F 99 17 105/73 95 Vital Signs Temp Pulse Resp BP Pulse Ox 08/16/17 10:55 97.7 F 99 17 105/73 95 08/16/17 07:03 97.2 F L 89 17 115/76 97 08/16/17 05:09 97.9 F 87 16 116/78 99 08/16/17 01:08 97.7 F 80 17 111/67 96 08/15/17 21:57 97.7 F 82 17 94/51 98 08/15/17 21:00 18 105/85 08/15/17 20:44 60 16 105/85 96 08/15/17 19:39 79 16 106/68 99 08/15/17 18:05 70 18 95/71 95 08/15/17 17:07 97.3 F L 92 18 98/62 97 Intake and Output 08/15/17 08/16/17 08/16/17 23:59 07:59 15:59 Intake Total 240 / 240 Balance 240 / 240 Intake: Oral 240 / 240 Other: Meal Breakfast Percent of Meal Consumed 100% # Voids 1 1 Weight 77.564 kg General: Conversant, No Apparent Distress HEENT: Atraumatic, Normocephaly, Mucus Membranes Moist Neck: No JVD, Normal carotid pulses Cardiac: Other (irregularly irregular) Lungs: Normal Breath Sounds, No Wheeze, Rales, Rhonchi Neuro: Alert and responsive, No focal deficits noted Abdomen: Soft, Non-Tender Skin: No rashes noted on visualized skin Musculoskeletal: No Chest Wall Tenderness Extremities: No Clubbing, No Cyanosis, No Edema, Normal Pulses Results 08/16/17 05:47 08/16/17 05:47 Lab Results 08/15/17 08/16/17 08/16/17 21:13 05:47 05:47 WBC 16.4 H Hgb 12.5 L Hct 38.4 Plt Count 348 INR 3.8 D Sodium 136 Potassium 3.7 Chloride 106 Carbon Dioxide 27 BUN 20 Creatinine 0.71 Glucose 83 Calcium 8.8 B-Natriuretic Peptide 08/16/17 05:47 WBC Hgb Hct Plt Count INR Sodium Potassium Chloride Carbon Dioxide BUN Creatinine Glucose Calcium B-Natriuretic Peptide 167 H Short CBC 08/16/17 08/15/17 Range/Units 05:47 17:57 WBC 16.4 H 13.8 H (4.3-11.1) K/mcL Hgb 12.5 L 13.3 (12.9-16.9) g/dL Hct 38.4 40.6 (37.5-50.1) % Plt Count 348 416 H (140-400) K/mcL Neutrophils # 12.0 H 12.3 H (1.6-8.9) K/mcL BMP 08/16/17 08/15/17 Range/Units 05:47 17:57 Sodium 136 131 L (136-145) mEq/L Potassium 3.7 4.3 (3.5-5.1) mEq/L Chloride 106 104 (98-107) mEq/L Carbon Dioxide 27 22 L (23-29) mEq/L BUN 20 28 H (8-23) mg/dL Creatinine 0.71 0.89 (0.70-1.30) mg/dL Glucose 83 124 H (70-105) mg/dL Calcium 8.8 8.9 (8.6-10.3) mg/dL Cardiac Enzymes 08/15/17 Range/Units 17:57 Troponin I < 0.03 (< 0.04) ng/mL Impressions Chest X-Ray 08/15/17 17:11 IMPRESSION: No acute cardiopulmonary process. D/ / 08/15/2017 17:40:59 Avelino Morrison MD / alexander Interpreting Provider: Avelino Morrison MD Active Medications Aspirin (Aspirin) 81 mg PO DAILY [facility] Stop: 02/15/18 09:01 Last Admin: 08/16/17 08:36 Dose: 81 mg Diltiazem HCl (Cardizem Cd) 360 mg PO DAILY [facility] Stop: 02/15/18 09:01 Last Admin: 08/16/17 08:36 Dose: 360 mg Metoprolol Tartrate (Lopressor) 100 mg PO BID [facility] Stop: 02/14/18 21:01 Last Admin: 08/16/17 08:36 Dose: 100 mg Naloxone HCl (Narcan) 0.4 mg IVP Q2MIN PRN PRN Reason: Opioid Reversal Stop: 02/14/18 20:19 Warfarin Sodium (Coumadin Perpt) 0 each PO DAILY@1800 PRN PRN Reason: SEE COMMENTS Stop: 02/15/18 18:01 - Imaging and Cardiology Stress Test: report reviewed Echo: report reviewed - EKG Interpretation EKG results cardiology: personally reviewed, other (12 hr tele AVG HR 83, A-Fib/ Flutter) Consult Discharge Plan - Plan Referrals: Cornelia Swanson MD [Primary Care Provider] - <Saran Jerez - Last Filed: 08/17/17 09:37> Date of Encounter: 08/17/17 - Attending Attestation I have personally performed a face to face evaluation on this patient. I have reviewed and agree with the care plan. History and Exam by me shows: Recurrent atypical flutter/ AF. Would recommend tikosyn which had been discussed previously. Assessment and Plan Discussion w patient/family: The assessment and plan as outlined above was discussed with the patient and/or family members who expressed understanding and agreement. All questions were answered. Thank you for involving us in the care of your patient. Please call with any questions. History of Present Illness History of present illness: Mr. Kwok is a 72 year old male All Systems Review: A 10-system review of systems was performed and is negative for pertinent findings except as documented above in the HPI. Physical Examination Vital Signs, Last 4 Hours Temp Pulse Resp BP Pulse Ox 08/17/17 08:08 97.4 F L 76 17 120/83 95 Results 08/17/17 05:55 08/17/17 05:55 Lab Results 08/16/17 08/17/17 08/17/17 11:30 05:55 05:55 WBC Hgb Hct Plt Count INR 5.1 H* 3.6 Sodium 138 Potassium 4.0 Chloride 107 Carbon Dioxide 26 BUN 15 Creatinine 0.65 L Glucose 85 Calcium 8.8 08/17/17 05:55 WBC 10.2 Hgb 12.3 L Hct 37.8 Plt Count 330 INR Sodium Potassium Chloride Carbon Dioxide BUN Creatinine Glucose Calcium
[2017-08-16 11:56] LABS: INR 5.1; Prothrombin Time 56.4 Seconds (9.4-12.1)
--- NOTE | 2017-08-16 12:19 | Electrocardiograph Report ---
[address] [place], [place] [address] Test Date: 2017-08-15 Pat Name: Phani Kwok Department: 104 Room: 2A Gender: M [employer]: BUTCH : 1945 Requested By: Saran Robertson Order Number: [id number] Reading MD: Wesley Salas MD Measurements Intervals [place] Rate: 103 P: TN: 0 QRS: -61 QRSD: 113 T: 106 QT: 325 QTc: 385 Interpretive Statements ATRIAL FIBRILLATION ITH RAPID VENTRICULAR RESPONSE LEFT ANTERIOR FASCICULAR BLOCK LEFT VENTRICULAR HYPERTROPHY AND ST-T CHANGE Poor R wave progression Electronically Signed On 08-16-2017 12:18:23 EST by Wesley Salas MD
[2017-08-16 13:20] LABS: Bilirubin,Urine Negative (Negative); Blood,Urine Negative (Negative); Clarity,Urine Clear (Clear); Color,Urine Yellow (Yellow); Glucose,Urine (UA) Normal (Normal); Ketones,Urine Negative (Negative); Leukocyte Esterase,Urine Negative (Negative); Nitrite,Urine Negative (Negative); PH,Urine 6.5 pH Units (5.0-8.0); Protein,Urine Negative (Neg-Trace); Specific Gravity,Urine 1.014 (1.010-1.025); Urobilinogen,Urine Normal (Normal)
[2017-08-16] MEDS ORDERED: Warfarin perPT PO PRN (18:00)
[2017-08-17 06:19] LABS: INR 3.6; Prothrombin Time 39.7 Seconds (9.4-12.1)
[2017-08-17 06:33] LABS: Basophils % 0.4 %; Eosinophils # 0.1 K/mcL (0.0-0.6); Eosinophils % 1.3 %; Hematocrit 37.8 % (37.5-50.1); Hemoglobin 12.3 g/dL (12.9-16.9); Immature Granulocytes % 0.7 % (0-4); Lymphocytes % 29.3 %; Mean Corpuscular HGB Conc 32.5 g/dL (31.6-35.5); Mean Corpuscular Hemoglobin 31.3 pg (28.0-33.3); Mean Corpuscular Volume 96.2 fL (83.0-100.0); Mean Platelet Volume 8.9 fL (9.4-12.4); Monocytes # 0.7 K/mcL (0.0-1.3); Monocytes % 6.9 %; Neutrophils # 6.3 K/mcL (1.6-8.9); Platelet Count 330 K/mcL (140-400); Red Blood Count 3.93 M/mcL (4.19-5.50); Red Cell Distribution Width 13.1 % (11.5-14.5); Segmented Neutrophils % 61.4 %
[2017-08-17 08:00] LABS: BUN/Creatinine Ratio 23 (6-26); Blood Urea Nitrogen 15 mg/dL (8-23); Calcium 8.8 mg/dL (8.6-10.3); Carbon Dioxide 26 mEq/L (23-29); Chloride 107 mEq/L (98-107); Glucose 85 mg/dL (70-105); Osmolality,Calculated 286 (280-300); Sodium 138 mEq/L (136-145); eGFR For African Americans > 60 (> 60); eGFR For Non-African Americans > 60 (> 60)
[2017-08-17] MEDS ORDERED: Acetaminophen 325 MG TABLET PO ONE (08:21)
[2017-08-17] MEDS ORDERED: Acetaminophen 325 MG TABLET PO PRN (08:22)
--- NOTE | 2017-08-17 08:26 | Internal Med Progress Note ---
<Tawanna Bergman - Last Filed: 08/17/17 13:06> Date of Encounter: 08/17/17 Time of Encounter: 08:00 - Assessment and plan (1) Atrial fibrillation and flutter Current Visit: Yes Status: Acute Assessment and plan: Atrial fibrillation/flutter taking diltiazem and warfarin for anticoagulation Echo 08/11/17 shows LVEF 55-60 with otherwise normal findings INR today 3.6 HR 75 EKG 08/17/17 SR, paced, rate 75, QTc 452ms. Plan: Cardiology started Tikosyn last night. They report that patient may be discharged Monday at the earliest Cardiology was consulted, recommendations appreciated EKG daily to monitor QTc measurement Continuous cardiac monitoring Continue home meds of Metoprolol and Cardizem Continue Warfarin per pharmacy (2) Headache Current Visit: Yes Status: Acute Assessment and plan: Improved but not yet resolved Head CT showed no acute abnormality Tylenol PRN continue to monitor Qualifiers: Qualified Code(s): R51 - Headache (3) COPD (chronic obstructive pulmonary disease) Current Visit: No Status: Chronic Assessment and plan: History of COPD. Controlled CXR showed no acute cardiopulmonary process oxygen saturation 97% on room air Qualifiers: COPD type: emphysema Emphysema type: panlobular Qualified Code(s): J43.1 - Panlobular emphysema (4) Leukocytosis Current Visit: No Status: Chronic Assessment and plan: Leukocytosis resolved. WBC 10.2 There is no obvious source of infection based on history of clinical presentation. Urinalysis normal Plan: monitor WBC Qualifiers: Leukocytosis type: leukemoid reaction Qualified Code(s): D72.823 - Leukemoid reaction (5) HTN (hypertension) Current Visit: Yes Status: Chronic Assessment and plan: History of hypertension BP controlled continue home medication of metoprolol Qualifiers: Hypertension type: essential hypertension Qualified Code(s): I10 - Essential (primary) hypertension (6) DVT prophylaxis Current Visit: No Status: Acute Assessment and plan: on anticoagulation with warfarin - Subjective Interval history: Laying down in bed comfortably. He stated he still has a dull headache and would like tylenol. He denied chest pain, palpitations, nausea, vomiting. - Constitutional Vitals: Temp Pulse Resp BP Pulse Ox 97.4 F L 76 17 120/83 95 08/17/17 08:08 08/17/17 08:08 08/17/17 08:08 08/17/17 08:08 08/17/17 08:08 Exam: Gen.: Vitals noted. No acute distress. AAOx3 HEENT: oropharynx clear, Normocephalic, atraumatic Neck: Supple. No adenopathy. Cardiac: irregular, no murmur, +S1/S2 Pulmonary: CTA bilaterally, no wheezes, rales or rhonchi, equal chest expansion Abdomen: soft, nontender, Bowel sounds noted, no guarding Extremities: no BLE edema, nontender calf, no cyanosis or clubbing Neuro: A&Ox3, moves all extremities Psych: Appropriate mood and behavior Internal Medicine: Result - Labs CBC & Chem 7: 08/17/17 05:55 08/17/17 05:55 Labs: Short CBC 08/17/17 Range/Units 05:55 WBC 10.2 (4.3-11.1) K/mcL Hgb 12.3 L (12.9-16.9) g/dL Hct 37.8 (37.5-50.1) % Plt Count 330 (140-400) K/mcL Neutrophils # 6.3 (1.6-8.9) K/mcL BMP 08/17/17 05:55 Sodium 138 Potassium 4.0 Chloride 107 Carbon Dioxide 26 BUN 15 Creatinine 0.65 L Glucose 85 Calcium 8.8 Urine 08/16/17 Range/Units 13:05 Urine Color Yellow (Yellow) Urine Clarity Clear (Clear) Urine pH 6.5 (5.0-8.0) pH Units Ur Specific [place] 1.014 (1.010-1.025) Urine Protein Negative (Neg-Trace) mg/dL Urine Glucose (UA) Normal (Normal) mg/dL - ABG Interpretation ABG results: PT/INR, D-dimer PT 39.7 Seconds (9.4-12.1) H 08/17/17 05:55 - Impressions Impressions Head CT 08/16/17 11:45 IMPRESSION: No acute intracranial hemorrhage or mass effect. Age-indeterminate small bilateral frontal lobe cortical infarcts. Extensive cerebral white matter disease progressed from 2007. D/ / Sean Camarillo MD / Sean Camarillo MD Interpreting Provider: Sean Camarillo MD Consult Discharge Plan - Plan Referrals: Cornelia Swanson MD [Primary Care Provider] - <Terry Veloz - Last Filed: 08/17/17 18:43> Date of Encounter: 08/17/17 - Constitutional Vitals: Temp Pulse Resp BP Pulse Ox 97.9 F 79 16 116/71 97 08/17/17 16:21 08/17/17 16:21 08/17/17 16:21 08/17/17 16:21 08/17/17 16:21 Internal Medicine: Result - Labs CBC & Chem 7: 08/17/17 05:55 08/17/17 05:55 Labs: Short CBC 08/17/17 Range/Units 05:55 WBC 10.2 (4.3-11.1) K/mcL Hgb 12.3 L (12.9-16.9) g/dL Hct 37.8 (37.5-50.1) % Plt Count 330 (140-400) K/mcL Neutrophils # 6.3 (1.6-8.9) K/mcL BMP 08/17/17 05:55 Sodium 138 Potassium 4.0 Chloride 107 Carbon Dioxide 26 BUN 15 Creatinine 0.65 L Glucose 85 Calcium 8.8 - ABG Interpretation ABG results: PT/INR, D-dimer PT 39.7 Seconds (9.4-12.1) H 08/17/17 05:55 - Attending Attestation I conducted a face to face diagnostic evaluation of this patient and my medical decision-making was reviewed with the Resident Physician. I agree with the documented findings, disposition and treatment plan as described except to the extent set forth below: On exam he is in no acute distress. Heart is regular rate and rhythm S1-S2 no murmurs rubs or gallops. EKG personally reviewed shows H her lipase trended him with normal MI QRS and QT intervals Plan: Continue with Tikosyn, f/u with cardiology and monitor on telemetry. Terry Veloz MD
[2017-08-17] MEDS: Aspirin 81 MG TAB.CHEW PO SCH (08:46)
[2017-08-17] MEDS: Metoprolol 100 MG TABLET PO SCH ×2 (08:46→20:47)
[2017-08-17] MEDS: Diltiazem CD (24hr) 180 MG CAPSULE PO SCH (08:46)
--- NOTE | 2017-08-17 10:21 | Electrophysiology ProgressNote ---
Date of Encounter: 08/17/17 Time of Encounter: 10:16 Assessment and Plan (1) Atrial fibrillation and flutter Current Visit: Yes Status: Acute Known hx of PAF, unsuccessful A-Fib ablation in the past. Presented in atypical A-Flutter. Hx of failed Sotalol. Was on Tikosyn prior to his ablation. Pt now has had 3 admissions within 1 week for A-Fib/Flutter RVR. Initiated Tikosyn yesterday for symptomatic PAF. Tikosyn was started at 500mcg BID. EKG 2 hours after first dose showed QTc prolonged >15% from baseline (QTc went from 385 to 452ms). Tikosyn reduced to 250mcg BID. Pt has since converted to SR. EKG at 0500 s/p 2nd Tikosyn dose (reduced) showed stable QTc at 452ms. Reviewed with Dr. Saran Jerez. Will look for any further increase from current QTc. Continue Cardizem CD 360mg daily and Lopressor 100mg BID. Echo 07/2017 EF preserved. Stress test 2011 negative. Anticoagulated on Coumadin, INR 3.6 today. Denies active bleeding. Was subtherapeutic 08/13/17, so FRANKY would be warranted if pt needs DCCV. Pt needs kept for a minimum of 72 hours after first dose of Tikosyn. EKGs 2 hours after each dose for QTc monitoring (keep QTc <500ms and <15% from baseline ). Baseline EKG 08/15/17 A-Flutter RVR rate 103, QTc 385ms. EKG 08/16/17 unable to be located, but per RN QTc was 452ms. EKG 08/17/17 SR, paced, rate 75, QTc 452ms. Daily BMPs to monitor renal function as well. Will continue to follow. The earliest that pt will be able to be discharged is Monday evening. Tikosyn lauren check $15/month. (2) Cardiac pacemaker in situ Current Visit: Yes Status: Chronic Follows with device clinic. (3) Essential hypertension Current Visit: Yes Status: Chronic Controlled on current meds. (4) Chest pain Current Visit: Yes Status: Acute Reports chest tightness intermittently over the past 2 weeks, not alleviated or exacerbated by anything in particular. Troponin negative. Stress test 2011 negative. Suspect secondary to A-Fib/Flutter RVR. Chest pain has resolved now that he is in SR. Qualifiers: Chest pain type: unspecified Qualified Code(s): R07.9 - Chest pain, unspecified Discussion w patient/family: The assessment and plan as outlined above was discussed with the patient and/or family members who expressed understanding and agreement. All questions were answered. Thank you for involving us in the care of your patient. Please call with any questions. I will discuss all the above with Dr. Saran Jerez and make changes as necessary. Subjective Principal diagnosis: PAF Interval history: Pt was started on Tikosyn yesterday 500mcg BID. EKG 2 hours after first dose showed QTc prolonged >15% from baseline (QTc went from 385 to 452ms). Tikosyn reduced to 250mcg BID. Pt has since converted to SR. EKG at 0500 s/p 2nd Tikosyn dose (reduced) showed stable QTc at 452ms. Pt reports feeling better this AM. Denies chest pain. Objective Vital Signs, Last 4 Hours Temp Pulse Resp BP Pulse Ox 08/17/17 08:08 97.4 F L 76 17 120/83 95 Vital Signs Temp Pulse Resp BP Pulse Ox 08/17/17 08:08 97.4 F L 76 17 120/83 95 08/17/17 04:11 98.2 F 93 16 134/83 100 08/16/17 23:17 97.8 F 74 16 95/58 98 08/16/17 18:54 97.6 F 88 16 119/72 96 08/16/17 16:25 98.0 F 73 16 113/70 98 08/16/17 10:55 97.7 F 99 17 105/73 95 Intake and Output 08/16/17 08/17/17 08/17/17 23:59 07:59 15:59 Intake Total 300 / 300 100 / 100 220 / 220 Balance 300 / 300 100 / 100 220 / 220 Intake: Oral 300 / 300 100 / 100 220 / 220 Other: Meal HS SNACK-SANDWICH,CRACKERS,SODA Breakfast Percent of Meal Consumed 75% # Voids 1 1 Weight 77.8 kg Patient Weight 08/17/17 23:59 Weight 77.8 kg General: Conversant, No Apparent Distress HEENT: Atraumatic, Normocephaly, Mucus Membranes Moist Neck: No JVD, Normal carotid pulses Cardiac: Reg Rate and Rhythm, Normal S1 and S2, No Murmur Lungs: Normal Breath Sounds, No Wheeze, Rales, Rhonchi Neuro: Alert and responsive, No focal deficits noted Abdomen: Soft, Non-Tender Skin: No rashes noted on visualized skin Musculoskeletal: No Chest Wall Tenderness Extremities: No Clubbing, No Cyanosis, No Edema, Normal Pulses Results 08/17/17 05:55 08/17/17 05:55 Lab Results 08/16/17 08/17/17 08/17/17 11:30 05:55 05:55 WBC Hgb Hct Plt Count INR 5.1 H* 3.6 Sodium 138 Potassium 4.0 Chloride 107 Carbon Dioxide 26 BUN 15 Creatinine 0.65 L Glucose 85 Calcium 8.8 08/17/17 05:55 WBC 10.2 Hgb 12.3 L Hct 37.8 Plt Count 330 INR Sodium Potassium Chloride Carbon Dioxide BUN Creatinine Glucose Calcium - Imaging and Cardiology Stress Test: report reviewed Echo: report reviewed - EKG Interpretation EKG results cardiology: personally reviewed, other (12 hr tele AVG HR 77, now SR.) Consult Discharge Plan - Plan Referrals: Cornelia Swanson MD [Primary Care Provider] -
[2017-08-17] MEDS ORDERED: *HR* Warfarin 1 MG TABLET PO ONE (18:00)
[2017-08-18 07:12] LABS: INR 2.2; Prothrombin Time 23.9 Seconds (9.4-12.1)
[2017-08-18 07:31] LABS: BUN/Creatinine Ratio 23 (6-26); Blood Urea Nitrogen 15 mg/dL (8-23); Calcium 8.4 mg/dL (8.6-10.3); Carbon Dioxide 26 mEq/L (23-29); Chloride 106 mEq/L (98-107); Glucose 113 mg/dL (70-105); Osmolality,Calculated 284 (280-300); Potassium 3.7 mEq/L (3.5-5.1); Sodium 136 mEq/L (136-145); eGFR For African Americans > 60 (> 60); eGFR For Non-African Americans > 60 (> 60)
--- NOTE | 2017-08-18 08:59 | Electrophysiology ProgressNote ---
Date of Encounter: 08/18/17 Time of Encounter: 08:57 Assessment and Plan (1) Atrial fibrillation and flutter Current Visit: Yes Status: Acute Known hx of PAF, unsuccessful A-Fib ablation in the past. Presented in atypical A-Flutter. Hx of failed Sotalol. Was on Tikosyn prior to his ablation. Pt now has had 3 admissions within 1 week for A-Fib/Flutter RVR. Tikosyn was started at 500mcg BID. EKG 2 hours after first dose showed QTc prolonged >15% from baseline (QTc went from 385 to 452ms). Tikosyn reduced to 250mcg BID. Pt has since converted to SR. Baseline EKG 08/15/17 A-Flutter RVR rate 103, QTc 385ms. EKG 08/16/17 s/p 1st Tikosyn dose unable to be located, but per RN QTc was 452ms. EKG 08/17/17 at 0500 s/p 2nd Tikosyn dose, SR, stable QTc at 452ms. EKG 08/17/17 at 1803 s/p 3rd Tikosyn dose SR, improved QTc 428ms. EKG 08/18/17 at 0506 s/p 4th Tikosyn dose SR, stable QTc 432ms. Continue Cardizem CD 360mg daily and Lopressor 100mg BID. Echo 07/2017 EF preserved. Stress test 2011 negative. Anticoagulated on Coumadin, INR 3.6 today. Denies active bleeding. Was subtherapeutic 08/13/17, so FRANKY would be warranted if pt needs DCCV. Pt needs kept for a minimum of 72 hours after first dose of Tikosyn. EKGs 2 hours after each dose for QTc monitoring (keep QTc <500ms and <15% from current QTc). Daily BMPs to monitor renal function as well. Renal function remains normal. Will continue to follow. The earliest that pt will be able to be discharged is Monday evening. Tikosyn lauren check $15/month. (2) Cardiac pacemaker in situ Current Visit: Yes Status: Chronic Follows with device clinic. (3) Essential hypertension Current Visit: Yes Status: Chronic Controlled on current meds. (4) Chest pain Current Visit: Yes Status: Acute Reports chest tightness intermittently over the past 2 weeks, not alleviated or exacerbated by anything in particular. Troponin negative. Stress test 2012 negative. Suspect secondary to A-Fib/Flutter RVR. Chest pain has resolved now that he is in SR. Qualifiers: Chest pain type: unspecified Qualified Code(s): R07.9 - Chest pain, unspecified Discussion w patient/family: The assessment and plan as outlined above was discussed with the patient and/or family members who expressed understanding and agreement. All questions were answered. Thank you for involving us in the care of your patient. Please call with any questions. I will discuss all the above with Dr. Saran Jerez and make changes as necessary. Subjective Principal diagnosis: PAF Interval history: QTc remains stable on reduced dose of Tkosyn, 250mcg BID. QTc 431ms this AM s/p 4th Tikosyn dose. Pt denies acute cardaic complaints. Renal function remains normal. Pt remains in SR. Objective Vital Signs, Last 4 Hours Temp Pulse Resp BP Pulse Ox 08/18/17 07:49 97.5 F L 71 18 116/74 95 08/18/17 05:06 97.5 F L 80 18 111/77 97 Vital Signs Temp Pulse Resp BP Pulse Ox 08/18/17 07:49 97.5 F L 71 18 116/74 95 08/18/17 05:06 97.5 F L 80 18 111/77 97 08/17/17 22:48 97.6 F 77 18 123/75 97 08/17/17 16:21 97.9 F 79 16 116/71 97 08/17/17 11:32 99.2 F 75 16 110/73 97 Intake and Output 08/17/17 08/18/17 08/18/17 23:59 07:59 15:59 Intake Total 300 / 300 Balance 300 / 300 Intake: Oral 300 / 300 Other: Meal HS SNACK AND SODA # Voids 1 1 Weight 76.204 kg Patient Weight 08/18/17 23:59 Weight 76.204 kg General: Conversant, No Apparent Distress HEENT: Atraumatic, Normocephaly, Mucus Membranes Moist Neck: No JVD, Normal carotid pulses Cardiac: Reg Rate and Rhythm, Normal S1 and S2, No Murmur Lungs: Normal Breath Sounds, No Wheeze, Rales, Rhonchi Neuro: Alert and responsive, No focal deficits noted Abdomen: Soft, Non-Tender Skin: No rashes noted on visualized skin Musculoskeletal: No Chest Wall Tenderness Extremities: No Clubbing, No Cyanosis, No Edema, Normal Pulses Results 08/17/17 05:55 08/18/17 06:55 Lab Results 08/18/17 08/18/17 06:55 06:55 INR 2.2 Sodium 136 Potassium 3.7 Chloride 106 Carbon Dioxide 26 BUN 15 Creatinine 0.64 L Glucose 113 H Calcium 8.4 L BMP 08/18/17 Range/Units 06:55 Sodium 136 (136-145) mEq/L Potassium 3.7 (3.5-5.1) mEq/L Chloride 106 (98-107) mEq/L Carbon Dioxide 26 (23-29) mEq/L BUN 15 (8-23) mg/dL Creatinine 0.64 L (0.70-1.30) mg/dL Glucose 113 H (70-105) mg/dL Calcium 8.4 L (8.6-10.3) mg/dL Active Medications Acetaminophen (Tylenol) 325 mg PO Q4HR PRN PRN Reason: Pain Stop: 02/16/18 08:23 Aspirin (Aspirin) 81 mg PO DAILY REPLACED BY [facility] Stop: 02/15/18 09:01 Last Admin: 08/17/17 08:46 Dose: 81 mg Diltiazem HCl (Cardizem Cd) 360 mg PO DAILY REPLACED BY [facility] Stop: 02/15/18 09:01 Last Admin: 08/17/17 08:46 Dose: 360 mg Dofetilide (Tikosyn) 0.25 mg PO Q12H REPLACED BY [facility] Stop: 02/16/18 02:46 Last Admin: 08/18/17 02:44 Dose: 0.25 mg Metoprolol Tartrate (Lopressor) 100 mg PO BID REPLACED BY [facility] Stop: 02/14/18 21:01 Last Admin: 08/17/17 20:47 Dose: 100 mg Naloxone HCl (Narcan) 0.4 mg IVP Q2MIN PRN PRN Reason: Opioid Reversal Stop: 02/14/18 20:19 Warfarin Sodium (Coumadin Perpt) 1 each PO DAILY@1800 PRN PRN Reason: SEE COMMENTS Stop: 02/15/18 18:01 - Imaging and Cardiology Stress Test: report reviewed Echo: report reviewed - EKG Interpretation EKG results cardiology: other (12 hr tele AVG HR 78, SR) Consult Discharge Plan - Plan Referrals: Cintia-Luis Eduardo,Cornelia M, MD [Primary Care Provider] -
[2017-08-18] MEDS: Metoprolol 100 MG TABLET PO SCH ×2 (09:43→21:53)
[2017-08-18] MEDS: Aspirin 81 MG TAB.CHEW PO SCH (09:44)
[2017-08-18] MEDS: Diltiazem CD (24hr) 180 MG CAPSULE PO SCH (09:44)
--- NOTE | 2017-08-18 11:14 | Internal Med Progress Note ---
<Tawanna Bergman - Last Filed: 08/18/17 15:05> Date of Encounter: 08/18/17 Time of Encounter: 11:13 - Assessment and plan (1) Atrial fibrillation and flutter Current Visit: Yes Status: Acute Assessment and plan: Atrial fibrillation/flutter taking diltiazem and warfarin for anticoagulation Echo 08/11/17 shows LVEF 55-60 with otherwise normal findings INR today 2.2 HR 78 EKG 08/18/17 at 0506 s/p 4th Tikosyn dose SR, stable QTc 432ms. Plan: Cardiology report that patient may be discharged Monday evening at the earliest Continue Tikosyn per cardiology. Cardiology was consulted, recommendations appreciated EKG daily to monitor QTc measurement Continuous cardiac monitoring Continue home meds of Metoprolol and Cardizem Continue Warfarin per pharmacy (2) Headache Current Visit: Yes Status: Acute Assessment and plan: Still present by Improved Head CT showed no acute abnormality Tylenol PRN continue to monitor Qualifiers: Qualified Code(s): R51 - Headache (3) COPD (chronic obstructive pulmonary disease) Current Visit: No Status: Chronic Assessment and plan: History of COPD. Controlled CXR showed no acute cardiopulmonary process oxygen saturation 97% on room air Qualifiers: COPD type: emphysema Emphysema type: panlobular Qualified Code(s): J43.1 - Panlobular emphysema (4) Leukocytosis Current Visit: No Status: Chronic Assessment and plan: Leukocytosis resolved. WBC 10.2 There is no obvious source of infection based on history of clinical presentation. Urinalysis normal Monitor for infection Qualifiers: Leukocytosis type: leukemoid reaction Qualified Code(s): D72.823 - Leukemoid reaction (5) Acid reflux Current Visit: Yes Status: Acute Assessment and plan: Patient reported he had acid reflux last night and normally takes tums and Prilosec at home start Tums and omeprazole Qualifiers: Qualified Code(s): K21.9 - Gastro-esophageal reflux disease without esophagitis (6) HTN (hypertension) Current Visit: Yes Status: Chronic Assessment and plan: History of hypertension BP controlled continue home medication of metoprolol Qualifiers: Hypertension type: essential hypertension Qualified Code(s): I10 - Essential (primary) hypertension (7) DVT prophylaxis Current Visit: No Status: Acute Assessment and plan: on anticoagulation with warfarin - Subjective Interval history: Laying down in bed comfortably. He stated he had some acid reflux which is common to him last night and requested to have something ordered for acid reflux. He denied chest pain, palpitations, nausea, vomiting. His friend is alongside him. - Constitutional Vitals: Temp Pulse Resp BP Pulse Ox 97.5 F L 71 18 116/74 95 08/18/17 07:49 08/18/17 07:49 08/18/17 07:49 08/18/17 07:49 08/18/17 07:49 Exam: Gen.: Vitals noted. No acute distress. AAOx3 HEENT: oropharynx clear, Normocephalic, atraumatic Cardiac: RRR, no murmur, +S1/S2 Pulmonary: CTA bilaterally, no wheezes, rales or rhonchi, equal chest expansion Abdomen: soft, nontender, Bowel sounds noted, no guarding MSK: ROM intact, no joint swelling noted Extremities: no BLE edema, nontender calf, no cyanosis or clubbing Neuro: A&Ox3, moves all extremities, no focal deficits Psych: Appropriate mood and behavior Internal Medicine: Result - Labs CBC & Chem 7: 08/17/17 05:55 08/18/17 06:55 Labs: BMP 08/18/17 06:55 Sodium 136 Potassium 3.7 Chloride 106 Carbon Dioxide 26 BUN 15 Creatinine 0.64 L Glucose 113 H Calcium 8.4 L - ABG Interpretation ABG results: PT/INR, D-dimer PT 23.9 Seconds (9.4-12.1) H 08/18/17 06:55 Consult Discharge Plan - Plan Referrals: Cornelia Swanson MD [Primary Care Provider] - <Terry Veloz - Last Filed: 08/18/17 18:01> Date of Encounter: 08/18/17 - Constitutional Vitals: Temp Pulse Resp BP Pulse Ox 98.2 F 76 18 117/76 96 08/18/17 16:22 08/18/17 16:22 08/18/17 16:22 08/18/17 16:22 08/18/17 16:22 Internal Medicine: Result - Labs CBC & Chem 7: 08/17/17 05:55 08/18/17 06:55 Labs: BMP 08/18/17 06:55 Sodium 136 Potassium 3.7 Chloride 106 Carbon Dioxide 26 BUN 15 Creatinine 0.64 L Glucose 113 H Calcium 8.4 L - ABG Interpretation ABG results: PT/INR, D-dimer PT 23.9 Seconds (9.4-12.1) H 08/18/17 06:55 - Attending Attestation I conducted a face to face diagnostic evaluation of this patient and my medical decision-making was reviewed with the Resident Physician. I agree with the documented findings, disposition and treatment plan as described except to the extent set forth below: I personally reviewed his EKG. Shows a paced rhythm with normal intervals. Normal QT and QTC intervals. Terry Veloz MD
[2017-08-18] MEDS ORDERED: *HR* Warfarin 5 MG TABLET PO ONE (18:00)
[2017-08-19 05:36] LABS: INR 1.5; Prothrombin Time 16.7 Seconds (9.4-12.1)
[2017-08-19 05:46] LABS: BUN/Creatinine Ratio 22 (6-26); Blood Urea Nitrogen 16 mg/dL (8-23); Calcium 8.8 mg/dL (8.6-10.3); Carbon Dioxide 27 mEq/L (23-29); Chloride 108 mEq/L (98-107); Glucose 119 mg/dL (70-105); Osmolality,Calculated 288 (280-300); Potassium 3.7 mEq/L (3.5-5.1); Sodium 138 mEq/L (136-145); eGFR For African Americans > 60 (> 60); eGFR For Non-African Americans > 60 (> 60)
--- NOTE | 2017-08-19 06:44 | Electrocardiograph Report ---
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
--- NOTE | 2017-08-19 06:49 | Cardiology Progress Note ---
Date of Encounter: 08/19/17 Time of Encounter: 06:45 Assessment and Plan (1) Atrial fibrillation and flutter Current Visit: Yes Status: Acute Per Cardiology: Known hx of PAF, unsuccessful A-Fib ablation in the past. Presented in atypical A-Flutter. Hx of failed Sotalol. Was on Tikosyn prior to his ablation. Echo 2017 EF preserved. Stress test 2011 negative. Pt now has had 3 admissions within 1 week for A-Fib/Flutter RVR. Tikosyn was started at 500mcg BID. EKG 2 hours after first dose showed QTc prolonged >15% from baseline (QTc went from 385 to 452ms). Tikosyn reduced to 250mcg BID. Pt has since converted to SR. On Cardizem CD 360mg daily and Lopressor 100mg BID as well. Baseline EKG 08/15/17 A-Flutter RVR rate 103, QTc 385ms. EKG 08/16/17 s/p 1st Tikosyn dose unable to be located, but per RN QTc was 452ms. EKG 08/17/17 at 0500 s/p 2nd Tikosyn dose, SR, stable QTc at 452ms. EKG 08/17/17 at 1803 s/p 3rd Tikosyn dose SR, improved QTc 428ms. EKG 08/18/17 at 0506 s/p 4th Tikosyn dose SR, stable QTc 432ms. Pt needs kept for a minimum of 72 hours after first dose of Tikosyn. EKGs 2 hours after each dose for QTc monitoring (keep QTc <500ms and <15% from current QTc). Renal function remains normal. Tikosyn lauren check $15/month. Current ECG this am after 5th dose shows SR 77, QTc 410ms. Discussed with Dr. Martinez, please vocera ECG QTc results from ECG tonight at 5pm to her for review (6th dose Tikosyn due around 3pm). Assuming stable, anticipate potential DC this evening. Tikosyn script on chart from Dr. Jerez. F/u arranged. Anticoagulated on Coumadin, INR 1.5. Denies active bleeding. Discussion w patient/family: The assessment and plan as outlined above was discussed with the patient and/or family members who expressed understanding and agreement. All questions were answered. Thank you for involving us in the care of your patient. Please call with any questions. Subjective Principal diagnosis: PAF, Tikosyn Interval history: Patient denies any concerns or complaints overnight. Denies any chest pain, shortness of breath, palpitations. Eager for potential discharge home today. Objective Vital Signs, Last 4 Hours Temp Pulse Resp BP Pulse Ox 08/19/17 05:45 97.8 F 77 17 106/68 95 General: Conversant, No Apparent Distress HEENT: Atraumatic, Normocephaly, Mucus Membranes Moist Neck: No JVD, Normal carotid pulses Cardiac: Reg Rate and Rhythm, Normal S1 and S2, No Murmur Lungs: Normal Breath Sounds, No Wheeze, Rales, Rhonchi Neuro: Alert and responsive, No focal deficits noted Abdomen: Soft, Non-Tender Skin: No rashes noted on visualized skin Musculoskeletal: No Chest Wall Tenderness Extremities: No Clubbing, No Cyanosis, No Edema, Normal Pulses Results 08/17/17 05:55 08/19/17 05:09 Lab Results Laboratory Tests 08/19/17 08/19/17 05:09 05:09 INR 1.5 Creatinine 0.72 Est GFR (Non-Af Amer) > 60 Active Medications Acetaminophen (Tylenol) 325 mg PO Q4HR PRN PRN Reason: Pain Stop: 02/16/18 08:23 Aspirin (Aspirin) 81 mg PO DAILY [facility] Stop: 02/15/18 09:01 Last Admin: 08/18/17 09:44 Dose: 81 mg Calcium Carbonate (Tums) 1,000 mg PO Q4HR PRN; Protocol PRN Reason: Heartburn Stop: 02/17/18 11:15 Last Admin: 08/18/17 16:14 Dose: 1,000 mg Diltiazem HCl (Cardizem Cd) 360 mg PO DAILY [facility] Stop: 02/15/18 09:01 Last Admin: 08/18/17 09:44 Dose: 360 mg Dofetilide (Tikosyn) 0.25 mg PO Q12H [facility] Stop: 02/16/18 02:46 Last Admin: 08/19/17 03:10 Dose: 0.25 mg Metoprolol Tartrate (Lopressor) 100 mg PO BID [facility] Stop: 02/14/18 21:01 Last Admin: 08/18/17 21:53 Dose: 100 mg Naloxone HCl (Narcan) 0.4 mg IVP Q2MIN PRN PRN Reason: Opioid Reversal Stop: 02/14/18 20:19 Omeprazole (Prilosec) 20 mg PO BIDAC CANDIDA PRN Reason: Protocol Stop: 02/17/18 16:31 Last Admin: 08/18/17 16:14 Dose: 20 mg Warfarin Sodium (Coumadin Perpt) 1 each PO DAILY@1800 PRN PRN Reason: SEE COMMENTS Stop: 02/15/18 18:01 - EKG Interpretation EKG results cardiology: other (Atrial paced in 70's, avg HR past 12 hrs 79, SR) Consult Discharge Plan - Plan Additional Instructions: Continue taking tikosyn that is prescribed along with you where Referrals: Cornelia Swanson MD [Primary Care Provider] - Saran Jerez MD [Partnered Physician] -
--- NOTE | 2017-08-19 07:07 | Electrocardiograph Report ---
[place] [address] Test Date: 2017-08-17 Pat Name: Phani Kwok Department: 112 Room: 2A Gender: M It Analyst: : 1945 Requested By: Terry Veloz Order Number: [id number] Reading MD: Wesley Salas MD Measurements Intervals [place] Rate: 75 P: 7 TN: 174 QRS: -58 QRSD: 113 T: 69 QT: 424 QTc: 452 Interpretive Statements ELECTRONIC ATRIAL PACEMAKER BASELINE ARTIFACT Electronically Signed On 08-19-2017 7:06:00 EST by Wesley Salas MD
[2017-08-19] MEDS: Diltiazem CD (24hr) 180 MG CAPSULE PO SCH (08:13)
[2017-08-19] MEDS: Metoprolol 100 MG TABLET PO SCH (08:13)
[2017-08-19] MEDS: Aspirin 81 MG TAB.CHEW PO SCH (08:13)
--- NOTE | 2017-08-19 08:23 | Discharge Summary ---
<Tawanna Bergman - Last Filed: 08/19/17 11:58> Date of Encounter: 08/19/17 Time of Encounter: 08:00 - Discharge Diagnosis (1) Atrial fibrillation and flutter Priority: Primary Status: Acute (2) Headache Priority: Secondary Status: Acute Qualifiers: Qualified Code(s): R51 - Headache (3) COPD (chronic obstructive pulmonary disease) Priority: Secondary Status: Chronic Qualifiers: COPD type: emphysema Emphysema type: panlobular Qualified Code(s): J43.1 - Panlobular emphysema (4) Leukocytosis Priority: Secondary Status: Chronic Qualifiers: Leukocytosis type: leukemoid reaction Qualified Code(s): D72.823 - Leukemoid reaction (5) Acid reflux Priority: Secondary Status: Acute Qualifiers: Qualified Code(s): K21.9 - Gastro-esophageal reflux disease without esophagitis (6) HTN (hypertension) Priority: Secondary Status: Chronic Qualifiers: Hypertension type: essential hypertension Qualified Code(s): I10 - Essential (primary) hypertension (7) DVT prophylaxis Priority: Secondary Status: Acute - Discharge Medications Prescriptions: Dofetilide [Tikosyn] 0.25 mg PO Q12H #60 capsule Home Medications: Aspirin 81 mg PO DAILY 06/27/16 [History] Metoprolol [Lopressor] 100 mg PO BID #30 07/20/16 [Rx] Warfarin [Coumadin] 5 mg PO MOWESA 08/10/17 [History] Warfarin [Coumadin] 7.5 mg PO SUTUTHFR 08/10/17 [History] Diltiazem CD (24hr) [Cardizem CD] 360 mg PO DAILY #60 cap.er.24h 08/14/17 [Rx] Dofetilide [Tikosyn] 0.25 mg PO Q12H #60 capsule 08/19/17 [Rx] Allergies/Adverse Reactions: 3 Allergy/AdvReac Type Severity Reaction Status Date / Time Sulfa (Sulfonamide Allergy Rash Verified 08/10/17 08:58 Antibiotics) Procedures/tests Complete & Pending: Procedures Performed prior 72 hours Category Date Time Status CT head/brain wo con [CT] Stat Cat Scan 08/16/17 11:45 Completed ECG 12 lead ECG [ECG] Routine Y 08/17/17 05:00 Completed ECG 12 lead ECG [ECG] Routine Y 08/17/17 18:03 Completed EKG [ECG 12 lead ECG] [ECG] Routine Y 08/16/17 14:07 Completed EKG [ECG 12 lead ECG] [ECG] Routine Y 08/18/17 04:53 Completed Date of admission: 08/15/17 20:19 Primary care physician: Cornelia Donald Consults: 08/16/17 12:15 Consult to Electrophysiology (EP) [CONS] Routine Consulting Provider: [facility] Reason for Consult: Aflutter Call Completed: Yes Discharging clinician: Terry Veloz Anticipated date of discharge: 08/19/17 - Patient Status Disposition: Home, Self-Care Condition: Good Functional capacity at discharge: independent ambulation Overall status at discharge: patient is back to baseline - Discharge Instructions Instructions: Dofetilide (By mouth) Follow Up With: Cornelia Swanson MD [Primary Care Provider] - Saran Jerez MD [Partnered Physician] - Additional Instructions: Continue taking tikosyn that is prescribed along with your current home metoprolol and Cardizem follow-up with cardiology outpatient return to the hospital should you develop chest pain, palpitations, increased shortness of breath, syncope. - Diet and Activity Activity: resume usual activities as tolerated Diet: advance to your usual diet Hospital course: Mr. Kwok is a 72 year old male with history of afib, htn, hld, pacemaker insertion who presents to the ED for rapid heart rate related to his atrial fibrillation. He says that he was in the hospital from Monday to this past Monday due to afib with rvr, and when he was discharged the problem continued. He was apparently told by one of his doctors that in the future, if his heart rate begins to accelerate, he can just take an extra metoprolol rather than coming into the hospital. 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 After doing so, he recieved another phone call from the nurse saying not to do it because it may drop his HR too much, however he had already done it so she told him to go to the ED. He says that he has been having pains in his neck b/l which feel as though they've been coming from his arteries, and they radiate into his posterior head. The pain is about 5/10, and is relatively constant. Nothing makes the pain any better or worse. He's tried taking tylenol for it with no success. He denies any chest pain associated with these events. Additionally, the patient was recently treated for an episode of acute bronchitis, and he feels that he has recovered from this appropriately because he is coughing less and having decreased shortness of breath as compared to before treatment. He does say that he's had some watery stools in the past few days which are atypical for him, but no specific nausea or vomiting. He does admit to smoking 1ppd, and he drinks about 2-3 beers per day. He has no other acute complaints. He now has had 3 admissions within 1 week for A-Fib/Flutter RVR, symptoms of chest tightness, bilateral neck pain/headaches. Cardiology was consulted and discussed with the patient to start him on Tikosyn. After which an EKG was taken 2 hours later which showed QTC prolonged. The tikosyn dose was reduced and the patient converted back to sinus rhythm. He was continued on his home dose of Lopressor and Cardizem. His INR was found to be supratherapeutic so pharmacy dosed his Coumadin. Daily BMPs were taken to monitor his renal function. He needed to stay for 72 hours after the 1st dose of Tikosyn. His subsequent EKGs showed a normal QTC intervals. The patient complained of headache neck pain that was constant. CT of his head was taken to rule out which cranial bleed due to his supratherapeutic INR. CT head was normal. And he was given Tylenol for the pain. His INR started to trend down to therapeutic levels. He denied chest pain, shortness of breath, syncope, palpitations, nausea, vomiting, diaphoresis, melena. Throughout his stay he would report that he is ready to go home as soon as possible. A friend of his continued to visit him in the hospital. Upon discharge another EKG was reviewed to find a normal QTC interval. The patient was instructed to continue taking his current home metoprolol and Cardizem and to start taking his tikosyn. He is to follow up with cardiology outpatient. He was instructed to return to the hospital should he develop palpitations, chest pain, increase shortness of breath, syncope. He is alert and oriented times 3 and he stated clearly stated in the treatment plan. - Time Spent with Patient Total time spent providing and/or coordinating discharge services: Greater than 30 minutes - Constitutional Vitals: Temp Pulse Resp BP Pulse Ox 97.9 F 75 17 105/65 96 08/19/17 07:49 08/19/17 07:49 08/19/17 07:49 08/19/17 07:49 08/19/17 07:49 Exam: Gen.: Vitals noted. No acute distress. AAOx3 HEENT: oropharynx clear, Normocephalic, atraumatic Cardiac: RRR, no murmur, +S1/S2 Pulmonary: CTA bilaterally, no wheezes, rales or rhonchi, equal chest expansion Abdomen: soft, nontender, Bowel sounds noted, no guarding MSK: ROM intact, no joint swelling noted Extremities: no BLE edema, nontender calf, no cyanosis or clubbing Neuro: A&Ox3, moves all extremities, no focal deficits Psych: Appropriate mood and behavior <Terry Veloz - Last Filed: 08/19/17 16:42> Date of Encounter: 08/19/17 Procedures/tests Complete & Pending: Procedures Performed prior 72 hours Category Date Time Status ECG 12 lead ECG [ECG] Routine Y 08/17/17 05:00 Completed ECG 12 lead ECG [ECG] Routine Y 08/17/17 18:03 Completed EKG [ECG 12 lead ECG] [ECG] Routine Y 08/18/17 04:53 Completed EKG [ECG 12 lead ECG] [ECG] Routine Y 08/19/17 17:00 Ordered Date of admission: 08/15/17 20:19 Primary care physician: Cornelia [facility] Consults: 08/16/17 12:15 Consult to Electrophysiology (EP) [CONS] Routine Consulting Provider: [facility] [place] Reason for Consult: Aflutter Call Completed: Yes Hospital course: Mr. Kwok is a 72 year old male - Time Spent with Patient Total time spent providing and/or coordinating discharge services: - Constitutional Vitals: Temp Pulse Resp BP Pulse Ox 97.4 F L 90 17 115/83 99 08/19/17 15:56 08/19/17 15:56 08/19/17 15:56 08/19/17 15:56 08/19/17 15:56 - Attending Attestation I conducted a face to face diagnostic evaluation of this patient and my medical decision-making was reviewed with the Resident Physician. I agree with the documented findings, disposition and treatment plan as described except to the extent set forth below: Patient is in no acute distress awake alert oriented. Heart is regular, lungs are clear. Plan: Patient will be discharged home when cleared by cardiology based on QTc measurement after administration of Tikosyn this afternoon. I advised smoking cessation. Terry Veloz MD
--- NOTE | 2017-08-19 10:21 | Electrocardiograph Report ---
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
[2017-08-19 15:58] VITALS: BP 115/83
[2017-08-19] MEDS ORDERED: *HR* Warfarin 5 MG TABLET PO ONE (18:00)
--- NOTE | 2017-08-22 06:45 | Electrocardiograph Report ---
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
--- NOTE | 2017-08-22 06:56 | Electrocardiograph Report ---
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
--- NOTE | 2017-08-22 07:07 | Electrocardiograph Report ---
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
--- NOTE | 2017-08-23 07:52 | Electrocardiograph Report ---
[address] [address] Test Date: 2017-08-19 Pat Name: Phani Kwok Department: 112 Room: 2A Gender: M Manager Estate: : 1945 Requested By: Tawanna Bergman Order Number: [id number] Reading MD: Wesley Salas MD Measurements Intervals [place] Rate: 75 P: -30 PA: 179 QRS: -48 QRSD: 111 T: 61 QT: 386 QTc: 414 Interpretive Statements ELECTRONIC ATRIAL PACEMAKER MARKED LEFT AXIS DEVIATION Electronically Signed On 08-23-2017 5:43:50 EST by Wesley Salas MD
== END 2017-08-19 17:26 | disposition home or self-care (01) ==
LOC: EMEROO 17:06 → 2ANU 17:06 → SUATTDRO 20:19 → 2ANU 21:22
PROVIDERS: ADMIT Internal Medicine; ATTEND Internal Medicine

== ENCOUNTER 2020-03-20 17:07 | Observation (INO) ==
[2020-03-20] MEDS ORDERED: 0.9 % Sodium Chloride 1,000 ML IVC ONE (17:34)
[2020-03-20 18:24] LABS: BUN/Creatinine Ratio 14 (6-26); Blood Urea Nitrogen 8 mg/dL (8-23); Calcium 9.7 mg/dL (8.6-10.3); Carbon Dioxide 24 mEq/L (23-29); Chloride 104 mEq/L (98-107); Glucose 120 mg/dL (70-105); Osmolality,Calculated 284 (280-300); Potassium 3.9 mEq/L (3.5-5.1); Sodium 137 mEq/L (136-145); eGFR For African Americans > 60 (> 60); eGFR For Non-African Americans > 60 (> 60)
[2020-03-20 18:25] LABS: Basophils % 0.1 %; Hemoglobin 15.2 g/dL (12.9-16.9); Immature Granulocytes % 0.5 % (0-4); Lymphocytes # 1.7 K/mcL (0.6-4.6); Lymphocytes % 7.4 %; Mean Corpuscular HGB Conc 34.5 g/dL (31.6-35.5); Mean Corpuscular Hemoglobin 34.9 pg (28.0-33.3); Mean Corpuscular Volume 101.1 fL (83.0-100.0); Mean Platelet Volume 9.5 fL (9.4-12.4); Monocytes # 0.8 K/mcL (0.0-1.3); Monocytes % 3.6 %; Neutrophils # 19.9 K/mcL (1.6-8.9); Platelet Count 208 K/mcL (140-400); Red Blood Count 4.35 M/mcL (4.19-5.50); Red Cell Distribution Width 12.7 % (11.5-14.5); Segmented Neutrophils % 88.4 %; White Blood Count 22.5 K/mcL (4.3-11.1)
[2020-03-20] MEDS ORDERED: Azithromycin 500 MG in 0.9 % Sodium Chloride 250 ML IVPB ONE (18:44)
[2020-03-20 19:08] LABS: Troponin I 0.04 ng/mL (< 0.04)
[2020-03-20 21:36] LABS: Adenovirus Not Detected (Not Detect); Bordetella Pertussis Not Detected (Not Detect); Chlamydophila pneumoniae Not Detected (Not Detect); Coronavirus 229E Not Detected (Not Detect); Coronavirus HKU1 Not Detected (Not Detect); Coronavirus NL63 Not Detected (Not Detect); Coronavirus OC43 Not Detected (Not Detect); Human Metapneumovirus Not Detected (Not Detect); Human Rhinovirus/Enterovirus Not Detected (Not Detect); Influenza A Subtype 2009 H1 Not Detected (Not Detect); Influenza B Not Detected (Not Detect); Mycoplasma pneumoniae Not Detected (Not Detect); Parainfluenza Virus 1 Not Detected (Not Detect); Parainfluenza Virus 2 Not Detected (Not Detect); Parainfluenza Virus 3 Not Detected (Not Detect); Parainfluenza Virus 4 Not Detected (Not Detect); Respiratory Syncytial Virus Not Detected (Not Detect); SARS-CoV-2 Not Detected (Not Detect)
[2020-03-20] MEDS ORDERED: Naloxone 0.4 MG/ML INJ IVP PRN (22:48)
[2020-03-20] MEDS ORDERED: 0.9 % Sodium Chloride 1,000 ML IVC SCH (23:00)
[2020-03-21] MEDS: Metoprolol 100 MG TABLET PO SCH ×3 (00:58→20:08)
[2020-03-21] MEDS: cefTRIAXone 1,000 MG in 0.9 % Sodium Chloride Mini Bag 100 ML IVPB SCH ×2 (00:59→23:25)
[2020-03-21 05:11] LABS: Bilirubin,Urine Negative (Negative); Blood,Urine Negative (Negative); Clarity,Urine Clear (Clear); Color,Urine Light-Yellow (Yellow); Glucose,Urine (UA) Normal (Normal); Ketones,Urine Negative (Negative); Leukocyte Esterase,Urine Negative (Negative); Nitrite,Urine Negative (Negative); Protein,Urine Negative (Neg-Trace); Specific Gravity,Urine 1.011 (1.010-1.025); Urobilinogen,Urine Normal (Normal)
[2020-03-21 07:06] LABS: Basophils % 0.1 %; Eosinophils # 0.1 K/mcL (0.0-0.6); Eosinophils % 0.6 %; Hematocrit 38.6 % (37.5-50.1); Immature Granulocytes % 0.3 % (0-4); Lymphocytes # 2.1 K/mcL (0.6-4.6); Lymphocytes % 14.3 %; Mean Corpuscular HGB Conc 33.7 g/dL (31.6-35.5); Mean Corpuscular Hemoglobin 34.2 pg (28.0-33.3); Mean Corpuscular Volume 101.6 fL (83.0-100.0); Mean Platelet Volume 9.8 fL (9.4-12.4); Monocytes # 0.9 K/mcL (0.0-1.3); Monocytes % 5.9 %; Neutrophils # 11.3 K/mcL (1.6-8.9); Platelet Count 173 K/mcL (140-400); Red Cell Distribution Width 12.9 % (11.5-14.5); Segmented Neutrophils % 78.8 %; White Blood Count 14.3 K/mcL (4.3-11.1)
[2020-03-21 07:11] LABS: INR 3.4; Prothrombin Time 38.4 Seconds (9.4-12.1)
[2020-03-21 07:26] LABS: Alanine Aminotransferase 9 Units/L (7-52); Albumin 3.1 g/dL (3.5-5.7); Albumin/Globulin Ratio 1.1 (1.1-2.2); Alkaline Phosphatase 33 Units/L (34-104); Aspartate Amino Transferase 14 Units/L (13-39); BUN/Creatinine Ratio 18 (6-26); Bilirubin,Total 0.5 mg/dL (0.3-1.0); Blood Urea Nitrogen 9 mg/dL (8-23); Calcium 8.6 mg/dL (8.6-10.3); Carbon Dioxide 23 mEq/L (23-29); Chloride 107 mEq/L (98-107); Globulin 2.7 g/dL (2.4-3.5); Glucose 125 mg/dL (70-105); Osmolality,Calculated 282 (280-300); Potassium 3.4 mEq/L (3.5-5.1); Sodium 136 mEq/L (136-145); Total Protein 5.8 g/dL (6.4-8.9); eGFR For African Americans > 60 (> 60); eGFR For Non-African Americans > 60 (> 60)
[2020-03-21] MEDS: Aspirin 81 MG TAB.CHEW PO SCH (09:24)
[2020-03-21] MEDS ORDERED: Nicotine 21 MG PATCH.TD24 TD SCH (15:15)
[2020-03-21] MEDS ORDERED: Warfarin perPT PO PRN (18:00)
[2020-03-21] MEDS ORDERED: Azithromycin 500 MG in 0.9 % Sodium Chloride 250 ML IVPB SCH (20:00)
[2020-03-21] MEDS ORDERED: Benzonatate 100 MG CAPSULE PO PRN (20:02)
[2020-03-22 01:10] LABS: Hematocrit 37.6 % (37.5-50.1); Hemoglobin 12.1 g/dL (12.9-16.9); Mean Corpuscular HGB Conc 32.2 g/dL (31.6-35.5); Mean Corpuscular Hemoglobin 33.5 pg (28.0-33.3); Mean Corpuscular Volume 104.2 fL (83.0-100.0); Mean Platelet Volume 9.2 fL (9.4-12.4); Platelet Count 160 K/mcL (140-400); Red Blood Count 3.61 M/mcL (4.19-5.50); Red Cell Distribution Width 12.9 % (11.5-14.5); White Blood Count 10.8 K/mcL (4.3-11.1)
[2020-03-22 01:11] LABS: INR 1.8; Prothrombin Time 20.8 Seconds (9.4-12.1)
[2020-03-22 01:27] LABS: BUN/Creatinine Ratio 19 (6-26); Blood Urea Nitrogen 11 mg/dL (8-23); Calcium 8.3 mg/dL (8.6-10.3); Carbon Dioxide 21 mEq/L (23-29); Chloride 105 mEq/L (98-107); Glucose 86 mg/dL (70-105); Osmolality,Calculated 281 (280-300); Potassium 3.2 mEq/L (3.5-5.1); Sodium 136 mEq/L (136-145); eGFR For African Americans > 60 (> 60); eGFR For Non-African Americans > 60 (> 60)
[2020-03-22] MEDS: Metoprolol 100 MG TABLET PO SCH (08:11)
[2020-03-22] MEDS: Aspirin 81 MG TAB.CHEW PO SCH (08:12)
[2020-03-22 11:45] VITALS: BP 126/61
[2020-03-22] MEDS ORDERED: *HR* Warfarin 7.5 MG TABLET PO ONE (18:00)
== END 2020-03-22 13:03 | disposition home or self-care (01) ==
LOC: 3BNU 17:07 → EMEROOARM 17:07 → 3BNU 22:51
PROVIDERS: ADMIT Internal Medicine; ATTEND Internal Medicine

== ENCOUNTER 2020-03-26 02:33 | Inpatient (IN) ==
[2020-03-26 02:57] LABS: Hematocrit 41.7 % (37.5-50.1); Hemoglobin 13.9 g/dL (12.9-16.9); Mean Corpuscular HGB Conc 33.3 g/dL (31.6-35.5); Mean Corpuscular Hemoglobin 34.5 pg (28.0-33.3); Mean Corpuscular Volume 103.5 fL (83.0-100.0); Mean Platelet Volume 8.7 fL (9.4-12.4); Platelet Count 225 K/mcL (140-400); Red Blood Count 4.03 M/mcL (4.19-5.50); Red Cell Distribution Width 12.4 % (11.5-14.5); White Blood Count 9.6 K/mcL (4.3-11.1)
[2020-03-26 02:58] LABS: INR 1.2; Prothrombin Time 13.6 Seconds (9.4-12.1)
[2020-03-26 03:01] LABS: Activated Partial Thrombo Time 34.1 Seconds (26.0-36.0)
[2020-03-26] MEDS ORDERED: Isovue-370 500 ML BOTTLE IVP ONE (03:01)
[2020-03-26 03:20] LABS: BUN/Creatinine Ratio 18 (6-26); Blood Urea Nitrogen 11 mg/dL (8-23); Calcium 9.2 mg/dL (8.6-10.3); Carbon Dioxide 25 mEq/L (23-29); Chloride 103 mEq/L (98-107); Glucose 88 mg/dL (70-105); Osmolality,Calculated 281 (280-300); Potassium 3.7 mEq/L (3.5-5.1); Sodium 136 mEq/L (136-145); Troponin I < 0.03 ng/mL (< 0.04); eGFR For African Americans > 60 (> 60); eGFR For Non-African Americans > 60 (> 60)
[2020-03-26] MEDS ORDERED: Aspirin Enteric Coated 325 MG Tablet PO ONE (04:58)
[2020-03-26] MEDS ORDERED: Perflutren Lipid Microsphere 1.3 ML in 0.9 % Sodium Chloride 8.7 ML IVP PRN (06:16)
[2020-03-26 06:52] LABS: Chol/HDL Ratio 4.1 (0-4.9); Cholesterol 143 mg/dL (< 200); HDL Cholesterol 35 mg/dL (40-59); LDL Cholesterol,Calculated 79 mg/dL (< 100); Triglycerides 144 mg/dL (< 150)
[2020-03-26] MEDS ORDERED: E-Z-PAQUE (BARIUM SULF) SUSP 1 BOTTLE PO ONE (12:00)
[2020-03-26] MEDS ORDERED: E-Z-HD (BARIUM SULF) SUSPENSION PO ONE (12:00)
[2020-03-26] MEDS ORDERED: Warfarin perPT PO PRN (18:00)
[2020-03-26] MEDS ORDERED: *HR* Warfarin 7.5 MG TABLET PO ONE (18:00)
[2020-03-27 05:13] LABS: Hematocrit 42.3 % (37.5-50.1); Hemoglobin 14.2 g/dL (12.9-16.9); Mean Corpuscular HGB Conc 33.6 g/dL (31.6-35.5); Mean Corpuscular Hemoglobin 34.3 pg (28.0-33.3); Mean Corpuscular Volume 102.2 fL (83.0-100.0); Mean Platelet Volume 8.9 fL (9.4-12.4); Platelet Count 233 K/mcL (140-400); Red Blood Count 4.14 M/mcL (4.19-5.50); Red Cell Distribution Width 12.4 % (11.5-14.5); White Blood Count 9.2 K/mcL (4.3-11.1)
[2020-03-27 05:25] LABS: INR 1.3
[2020-03-27] MEDS ORDERED: Acetaminophen 325 MG TABLET PO ONE (05:50)
[2020-03-27 05:54] LABS: Alanine Aminotransferase 12 Units/L (7-52); Albumin 3.4 g/dL (3.5-5.7); Albumin/Globulin Ratio 1.1 (1.1-2.2); Alkaline Phosphatase 39 Units/L (34-104); Aspartate Amino Transferase 16 Units/L (13-39); BUN/Creatinine Ratio 14 (6-26); Bilirubin,Total 0.6 mg/dL (0.3-1.0); Blood Urea Nitrogen 8 mg/dL (8-23); Calcium 9.1 mg/dL (8.6-10.3); Carbon Dioxide 23 mEq/L (23-29); Chloride 106 mEq/L (98-107); Globulin 3.1 g/dL (2.4-3.5); Glucose 89 mg/dL (70-105); Osmolality,Calculated 282 (280-300); Potassium 3.3 mEq/L (3.5-5.1); Sodium 137 mEq/L (136-145); Total Protein 6.5 g/dL (6.4-8.9); eGFR For African Americans > 60 (> 60); eGFR For Non-African Americans > 60 (> 60)
[2020-03-27 08:21] LABS: Estimated Average Glucose 123 mg/dl
[2020-03-27] MEDS: Aspirin 81 MG TAB.CHEW PO SCH (08:40)
[2020-03-27] MEDS ORDERED: 0.9 % Sodium Chloride 1,000 ML ONE (09:05)
[2020-03-27] MEDS ORDERED: *HR* Warfarin 7.5 MG TABLET PO ONE (18:00)
[2020-03-28] MEDS ORDERED: Acetaminophen 325 MG TABLET PO ONE (04:10)
[2020-03-28 05:44] LABS: Hematocrit 40.4 % (37.5-50.1); Hemoglobin 13.6 g/dL (12.9-16.9); Mean Corpuscular HGB Conc 33.7 g/dL (31.6-35.5); Mean Corpuscular Hemoglobin 34.5 pg (28.0-33.3); Mean Corpuscular Volume 102.5 fL (83.0-100.0); Mean Platelet Volume 8.9 fL (9.4-12.4); Platelet Count 225 K/mcL (140-400); Red Blood Count 3.94 M/mcL (4.19-5.50); Red Cell Distribution Width 12.1 % (11.5-14.5)
[2020-03-28 05:49] LABS: INR 1.5; Prothrombin Time 17.2 Seconds (9.4-12.1)
[2020-03-28 06:09] LABS: BUN/Creatinine Ratio 16 (6-26); Blood Urea Nitrogen 9 mg/dL (8-23); Calcium 8.8 mg/dL (8.6-10.3); Carbon Dioxide 21 mEq/L (23-29); Chloride 107 mEq/L (98-107); Glucose 92 mg/dL (70-105); Osmolality,Calculated 278 (280-300); Potassium 3.4 mEq/L (3.5-5.1); Sodium 135 mEq/L (136-145); eGFR For African Americans > 60 (> 60); eGFR For Non-African Americans > 60 (> 60)
[2020-03-28] MEDS: Aspirin 81 MG TAB.CHEW PO SCH (08:47)
[2020-03-28] MEDS: Acetaminophen 325 MG TABLET PO PRN ×2 (17:09→23:58)
[2020-03-28] MEDS ORDERED: *HR* Warfarin 5 MG TABLET PO ONE (18:00)
[2020-03-29 00:33] LABS: INR 1.5
[2020-03-29 00:37] LABS: Hematocrit 41.3 % (37.5-50.1); Hemoglobin 14.2 g/dL (12.9-16.9); Mean Corpuscular HGB Conc 34.4 g/dL (31.6-35.5); Mean Corpuscular Hemoglobin 35.3 pg (28.0-33.3); Mean Corpuscular Volume 102.7 fL (83.0-100.0); Mean Platelet Volume 9.2 fL (9.4-12.4); Platelet Count 223 K/mcL (140-400); Red Blood Count 4.02 M/mcL (4.19-5.50); White Blood Count 7.9 K/mcL (4.3-11.1)
[2020-03-29 00:40] LABS: BUN/Creatinine Ratio 17 (6-26); Blood Urea Nitrogen 8 mg/dL (8-23); Calcium 8.6 mg/dL (8.6-10.3); Carbon Dioxide 21 mEq/L (23-29); Chloride 107 mEq/L (98-107); Glucose 86 mg/dL (70-105); Osmolality,Calculated 280 (280-300); Potassium 3.6 mEq/L (3.5-5.1); Sodium 136 mEq/L (136-145); eGFR For African Americans > 60 (> 60); eGFR For Non-African Americans > 60 (> 60)
[2020-03-29] MEDS: Aspirin 81 MG TAB.CHEW PO SCH (08:15)
[2020-03-29] MEDS ORDERED: *HR* Warfarin 7.5 MG TABLET PO ONE (18:00)
[2020-03-29] MEDS ORDERED: Mag Hydrox/Al Hydrox/Simeth 30 ML UDC PO PRN (20:37)
[2020-03-29] MEDS: Acetaminophen 325 MG TABLET PO PRN (20:50)
[2020-03-30 05:23] LABS: Hematocrit 42.9 % (37.5-50.1); Hemoglobin 14.2 g/dL (12.9-16.9); Mean Corpuscular HGB Conc 33.1 g/dL (31.6-35.5); Mean Corpuscular Hemoglobin 34.1 pg (28.0-33.3); Mean Corpuscular Volume 103.1 fL (83.0-100.0); Mean Platelet Volume 9.3 fL (9.4-12.4); Platelet Count 235 K/mcL (140-400); Red Blood Count 4.16 M/mcL (4.19-5.50); Red Cell Distribution Width 12.1 % (11.5-14.5); White Blood Count 8.9 K/mcL (4.3-11.1)
[2020-03-30 05:26] LABS: INR 1.7; Prothrombin Time 19.3 Seconds (9.4-12.1)
[2020-03-30 05:40] LABS: BUN/Creatinine Ratio 20 (6-26); Blood Urea Nitrogen 11 mg/dL (8-23); Calcium 8.8 mg/dL (8.6-10.3); Carbon Dioxide 22 mEq/L (23-29); Chloride 109 mEq/L (98-107); Glucose 85 mg/dL (70-105); Osmolality,Calculated 285 (280-300); Potassium 3.8 mEq/L (3.5-5.1); Sodium 138 mEq/L (136-145); eGFR For African Americans > 60 (> 60); eGFR For Non-African Americans > 60 (> 60)
[2020-03-30 08:12] VITALS: BP 117/78
[2020-03-30] MEDS: Aspirin 81 MG TAB.CHEW PO SCH (08:53)
[2020-03-30] MEDS ORDERED: *HR* Warfarin 7.5 MG TABLET PO ONE (18:00)
== END 2020-03-30 14:05 | disposition critical access hospital (66) | DRG 65 ==
LOC: 3BNU 02:33 → EMEROOARM 02:33 → SUATTDRO 04:54 → 3BNU 05:22
PROVIDERS: ADMIT Student in an Organized Health Care Education/Training Program; ATTEND Nurse Practitioner Adult Health

== ENCOUNTER 2021-08-22 13:33 | Inpatient (IN) ==
[2021-08-22 14:07] LABS: ABG Base Excess -4 mEq/L (-2 to 3); ABG HCO3 21 mEq/L (21-27); ABG Oxygen Saturation 100 % (95-98); ABG PCO2 31 mmHg (35-45); ABG PH 7.43 pH Units (7.32-7.45); ABG PO2 244 mmHg (85-104); ABG TCO2 22 mEq/L (20-26)
[2021-08-22 14:46] LABS: Basophils % 0.1 %; Red Cell Distribution Width 15.6 % (11.5-14.5)
[2021-08-22 14:48] LABS: Lymphocytes # 1.9 K/mcL (0.6-4.6); Lymphocytes % 7.5 %; Mean Corpuscular HGB Conc 32.6 g/dL (31.6-35.5); Mean Corpuscular Hemoglobin 31.9 pg (28.0-33.3); Mean Corpuscular Volume 97.9 fL (83.0-100.0); Mean Platelet Volume 9.2 fL (9.4-12.4); Monocytes # 1.3 K/mcL (0.0-1.3); Platelet Count 615 K/mcL (140-400); Red Blood Count 1.44 M/mcL (4.19-5.50); Segmented Neutrophils % 85.4 %; White Blood Count 25.9 K/mcL (4.3-11.1)
[2021-08-22 14:50] LABS: Neutrophils # 22.1 K/mcL (1.6-8.9)
[2021-08-22 14:54] LABS: Hematocrit 14.1 % (37.5-50.1); Hemoglobin 4.6 g/dL (12.9-16.9)
[2021-08-22 14:58] LABS: Activated Partial Thrombo Time 95.4 Seconds (26.0-36.0)
[2021-08-22] MEDS ORDERED: Pantoprazole 40 MG VIAL IVP ONE (14:58)
[2021-08-22 15:07] LABS: Alanine Aminotransferase 33 Units/L (7-52); Albumin 2.5 g/dL (3.5-5.7); Albumin/Globulin Ratio 0.9 (1.1-2.2); Alkaline Phosphatase 41 Units/L (34-104); Aspartate Amino Transferase 17 Units/L (13-39); BUN/Creatinine Ratio 60 (6-26); Bilirubin,Direct 0.1 mg/dL (0.0-0.2); Bilirubin,Indirect 0.2 mg/dL (0.0-1.0); Bilirubin,Total 0.3 mg/dL (0.3-1.0); Blood Urea Nitrogen 58 mg/dL (8-23); Carbon Dioxide 21 mEq/L (23-29); Chloride 109 mEq/L (98-107); Globulin 2.9 g/dL (2.4-3.5); Glucose 142 mg/dL (70-105); Osmolality,Calculated 301 (280-300); Potassium 4.4 mEq/L (3.5-5.1); Sodium 136 mEq/L (136-145); Total Protein 5.4 g/dL (6.4-8.9); Troponin I < 0.03 ng/mL (< 0.04); eGFR For African Americans > 60 (> 60); eGFR For Non-African Americans > 60 (> 60)
[2021-08-22 15:10] LABS: INR 29.4; Prothrombin Time 318.4 Seconds (9.4-12.1)
[2021-08-22 15:15] LABS: Anisocytosis 1+ (Not Present); Hypochromasia Present (Not Present); Microcytosis Present (Not Present); Platelet Estimate Increased (Normal)
[2021-08-22] MEDS ORDERED: WATER FOR INJ IVPB ONE (15:24)
[2021-08-22] MEDS ORDERED: HUM PROTHROMBIN CPLX IVPB ONE (15:24)
[2021-08-22] MEDS ORDERED: [UNRECOGNIZED DRUG - OTHER] IVPB ONE (15:24)
[2021-08-22] MEDS ORDERED: *HR* Phytonadione 5 MG TABLET PO ONE (15:39)
[2021-08-22] MEDS ORDERED: 0.9 % Sodium Chloride 1,000 ML ONE (15:54)
[2021-08-22] MEDS: Pantoprazole 40 MG in 0.9 % Sodium Chloride Mini Bag 100 ML IVC SCH ×2 (16:18→22:08)
[2021-08-22 16:40] LABS: Influenza A PCR Negative (Negative); Influenza B PCR Negative (Negative); Resp. Syncytial Virus PCR Negative (Negative)
[2021-08-22 16:41] LABS: SARS-CoV-2 by PCR (In House) Positive (Negative)
[2021-08-22] MEDS ORDERED: Naloxone 0.4 MG/ML INJ IVP PRN (17:33)
[2021-08-22] MEDS ORDERED: 0.9 % Sodium Chloride 1,000 ML IVC ONE (17:33)
[2021-08-22] MEDS ORDERED: 0.9 % Sodium Chloride 2,000 ML IVC SCH (17:45)
[2021-08-22] MEDS: Dexamethasone Sodium Phos/PF 10 MG/ML VIAL IVP SCH (22:21)
[2021-08-22] MEDS: cefTRIAXone 2,000 MG in 0.9 % Sodium Chloride Mini Bag 100 ML IVPB SCH (22:22)
[2021-08-22] MEDS: Azithromycin 500 MG in 0.9 % Sodium Chloride 250 ML IVPB SCH (22:26)
[2021-08-23] MEDS ORDERED: 0.9 % Sodium Chloride 250 ML ONE (00:15)
[2021-08-23 00:55] LABS: Basophils % 0.1 %; Nucleated Red Blood Cells 0.2 /100 WBC (0)
[2021-08-23 00:56] LABS: Hematocrit 16.9 % (37.5-50.1); Immature Granulocytes % 1.4 % (0-4); Lymphocytes % 7.1 %; Mean Corpuscular HGB Conc 30.8 g/dL (31.6-35.5); Mean Corpuscular Hemoglobin 30.2 pg (28.0-33.3); Mean Corpuscular Volume 98.3 fL (83.0-100.0); Mean Platelet Volume 9.1 fL (9.4-12.4); Monocytes # 0.9 K/mcL (0.0-1.3); Monocytes % 4.3 %; Platelet Count 520 K/mcL (140-400); Red Blood Count 1.72 M/mcL (4.19-5.50); Red Cell Distribution Width 17.8 % (11.5-14.5); Segmented Neutrophils % 87.1 %; White Blood Count 21.8 K/mcL (4.3-11.1)
[2021-08-23 00:57] LABS: Lymphocytes # 1.6 K/mcL (0.6-4.6)
[2021-08-23 00:58] LABS: Hemoglobin 5.2 g/dL (12.9-16.9)
[2021-08-23 01:07] LABS: Alanine Aminotransferase 26 Units/L (7-52); Albumin 2.4 g/dL (3.5-5.7); Albumin/Globulin Ratio 0.9 (1.1-2.2); Alkaline Phosphatase 37 Units/L (34-104); Aspartate Amino Transferase 17 Units/L (13-39); BUN/Creatinine Ratio 61 (6-26); Bilirubin,Total 0.3 mg/dL (0.3-1.0); Blood Urea Nitrogen 49 mg/dL (8-23); Carbon Dioxide 21 mEq/L (23-29); Chloride 110 mEq/L (98-107); Globulin 2.8 g/dL (2.4-3.5); Glucose 116 mg/dL (70-105); Osmolality,Calculated 300 (280-300); Potassium 3.9 mEq/L (3.5-5.1); Sodium 138 mEq/L (136-145); Total Protein 5.2 g/dL (6.4-8.9); eGFR For African Americans > 60 (> 60); eGFR For Non-African Americans > 60 (> 60)
[2021-08-23 01:09] LABS: INR 1.8; Prothrombin Time 19.8 Seconds (9.4-12.1)
[2021-08-23 01:10] LABS: Activated Partial Thrombo Time 30.3 Seconds (26.0-36.0)
[2021-08-23] MEDS: Pantoprazole 40 MG in 0.9 % Sodium Chloride Mini Bag 100 ML IVC SCH ×3 (04:44→14:43)
[2021-08-23] MEDS: Dexamethasone Sodium Phos/PF 10 MG/ML VIAL IVP SCH (07:54)
[2021-08-23 08:42] LABS: Hematocrit 23.2 % (37.5-50.1); Mean Corpuscular HGB Conc 31.9 g/dL (31.6-35.5); Mean Corpuscular Hemoglobin 28.9 pg (28.0-33.3); Mean Platelet Volume 8.8 fL (9.4-12.4); Platelet Count 457 K/mcL (140-400); Red Blood Count 2.56 M/mcL (4.19-5.50); Red Cell Distribution Width 16.9 % (11.5-14.5); White Blood Count 18.6 K/mcL (4.3-11.1)
[2021-08-23 08:43] LABS: Hemoglobin 7.4 g/dL (12.9-16.9); Mean Corpuscular Volume 90.6 fL (83.0-100.0)
[2021-08-23] MEDS ORDERED: *HR* Propofol 200 MG/20 ML VIAL IVP ONE ×2 (16:34→16:58)
[2021-08-23] MEDS ORDERED: Fluconazole 400 MG/200 ML 400 MG/200 ML BAG IVPB ONE (17:45)
[2021-08-23] MEDS: cefTRIAXone 2,000 MG in 0.9 % Sodium Chloride Mini Bag 100 ML IVPB SCH (18:15)
[2021-08-23] MEDS: Azithromycin 500 MG in 0.9 % Sodium Chloride 250 ML IVPB SCH (18:15)
[2021-08-23] MEDS: Melatonin 3 MG TABLET PO PRN (22:03)
[2021-08-24 06:01] LABS: Basophils % 0.2 %; Hemoglobin 7.3 g/dL (12.9-16.9); Immature Granulocytes % 1.3 % (0-4); Lymphocytes # 0.9 K/mcL (0.6-4.6); Lymphocytes % 4.9 %; Mean Corpuscular HGB Conc 31.7 g/dL (31.6-35.5); Mean Corpuscular Volume 91.3 fL (83.0-100.0); Mean Platelet Volume 8.9 fL (9.4-12.4); Monocytes # 0.8 K/mcL (0.0-1.3); Nucleated Red Blood Cells 0.1 /100 WBC (0); Platelet Count 476 K/mcL (140-400); Red Blood Count 2.52 M/mcL (4.19-5.50); Red Cell Distribution Width 17.5 % (11.5-14.5); Segmented Neutrophils % 89.6 %
[2021-08-24 06:26] LABS: Alanine Aminotransferase 26 Units/L (7-52); Albumin 2.5 g/dL (3.5-5.7); Albumin/Globulin Ratio 0.9 (1.1-2.2); Alkaline Phosphatase 44 Units/L (34-104); Aspartate Amino Transferase 18 Units/L (13-39); BUN/Creatinine Ratio 37 (6-26); Bilirubin,Total 0.4 mg/dL (0.3-1.0); Blood Urea Nitrogen 28 mg/dL (8-23); Carbon Dioxide 21 mEq/L (23-29); Chloride 106 mEq/L (98-107); Globulin 2.7 g/dL (2.4-3.5); Glucose 120 mg/dL (70-105); Osmolality,Calculated 289 (280-300); Potassium 3.8 mEq/L (3.5-5.1); Sodium 136 mEq/L (136-145); Total Protein 5.2 g/dL (6.4-8.9); eGFR For African Americans > 60 (> 60); eGFR For Non-African Americans > 60 (> 60)
[2021-08-24] MEDS: Fluconazole 100 MG TABLET PO SCH (08:14)
[2021-08-24] MEDS: Dexamethasone Sodium Phos/PF 10 MG/ML VIAL IVP SCH (08:14)
[2021-08-24] MEDS ORDERED: Albuterol 2.5 MG/3 ML NEBULIZER IH PRN (14:20)
[2021-08-24] MEDS: *HR* Amiodarone 200 MG TABLET PO SCH (14:50)
[2021-08-24] MEDS: DilTIAZem CD (24hr) 120 MG CAP.ER.24H PO SCH (14:51)
[2021-08-24] MEDS: Budesonide Neb 0.5 MG/2 ML IH SCH ×3 (15:42→22:32)
[2021-08-24] MEDS: Azithromycin 500 MG in 0.9 % Sodium Chloride 250 ML IVPB SCH (17:20)
[2021-08-24] MEDS: cefTRIAXone 2,000 MG in 0.9 % Sodium Chloride Mini Bag 100 ML IVPB SCH (17:20)
[2021-08-24] MEDS: Metoprolol 100 MG TABLET PO SCH (20:02)
[2021-08-25 05:18] LABS: Basophils % 0.1 %; Hematocrit 23.2 % (37.5-50.1); Hemoglobin 7.3 g/dL (12.9-16.9); Immature Granulocytes % 1.1 % (0-4); Lymphocytes # 0.8 K/mcL (0.6-4.6); Lymphocytes % 3.9 %; Mean Corpuscular HGB Conc 31.5 g/dL (31.6-35.5); Mean Corpuscular Volume 92.1 fL (83.0-100.0); Mean Platelet Volume 8.8 fL (9.4-12.4); Monocytes # 0.8 K/mcL (0.0-1.3); Monocytes % 3.8 %; Neutrophils # 18.7 K/mcL (1.6-8.9); Nucleated Red Blood Cells 0.1 /100 WBC (0); Platelet Count 458 K/mcL (140-400); Red Blood Count 2.52 M/mcL (4.19-5.50); Red Cell Distribution Width 17.5 % (11.5-14.5); Segmented Neutrophils % 91.1 %; White Blood Count 20.5 K/mcL (4.3-11.1)
[2021-08-25 05:38] LABS: Alanine Aminotransferase 27 Units/L (7-52); Albumin 2.5 g/dL (3.5-5.7); Alkaline Phosphatase 41 Units/L (34-104); Aspartate Amino Transferase 18 Units/L (13-39); BUN/Creatinine Ratio 38 (6-26); Bilirubin,Total 0.3 mg/dL (0.3-1.0); Blood Urea Nitrogen 26 mg/dL (8-23); Carbon Dioxide 24 mEq/L (23-29); Chloride 107 mEq/L (98-107); Globulin 2.6 g/dL (2.4-3.5); Glucose 116 mg/dL (70-105); Osmolality,Calculated 282 (280-300); Sodium 133 mEq/L (136-145); Total Protein 5.1 g/dL (6.4-8.9); eGFR For African Americans > 60 (> 60); eGFR For Non-African Americans > 60 (> 60)
[2021-08-25] MEDS: Budesonide Neb 0.5 MG/2 ML IH SCH ×2 (07:19→21:08)
[2021-08-25] MEDS: Dexamethasone Sodium Phos/PF 10 MG/ML VIAL IVP SCH (07:33)
[2021-08-25] MEDS: *HR* Amiodarone 200 MG TABLET PO SCH (07:34)
[2021-08-25] MEDS: Fluconazole 100 MG TABLET PO SCH (07:34)
[2021-08-25] MEDS: Metoprolol 100 MG TABLET PO SCH ×2 (07:34→21:40)
[2021-08-25] MEDS: DilTIAZem CD (24hr) 120 MG CAP.ER.24H PO SCH (07:34)
[2021-08-25] MEDS: Vitamin B Complex/Vit C/Vit E 1 EACH TABLET PO SCH (07:40)
[2021-08-25] MEDS: Cholecalciferol (D-3) 1,000 UNIT (25MCG) TABLET PO SCH (07:40)
[2021-08-25 10:20] LABS: INR 2.3; Prothrombin Time 25.2 Seconds (9.4-12.1)
[2021-08-25] MEDS ORDERED: Warfarin perPT PO PRN (18:00)
[2021-08-25] MEDS ORDERED: *HR* Warfarin 1 MG TABLET PO ONE (18:00)
[2021-08-25] MEDS: Melatonin 3 MG TABLET PO PRN (21:40)
[2021-08-26 00:58] LABS: Basophils % 0.2 %; Hemoglobin 7.5 g/dL (12.9-16.9); Immature Granulocytes % 1.4 % (0-4); Lymphocytes # 0.7 K/mcL (0.6-4.6); Lymphocytes % 3.3 %; Mean Corpuscular HGB Conc 31.3 g/dL (31.6-35.5); Mean Corpuscular Hemoglobin 29.5 pg (28.0-33.3); Mean Corpuscular Volume 94.5 fL (83.0-100.0); Mean Platelet Volume 8.7 fL (9.4-12.4); Monocytes % 4.3 %; Neutrophils # 20.2 K/mcL (1.6-8.9); Nucleated Red Blood Cells 0.1 /100 WBC (0); Platelet Count 423 K/mcL (140-400); Red Blood Count 2.54 M/mcL (4.19-5.50); Red Cell Distribution Width 17.5 % (11.5-14.5); Segmented Neutrophils % 90.8 %; White Blood Count 22.2 K/mcL (4.3-11.1)
[2021-08-26 01:06] LABS: INR 3.1; Prothrombin Time 34.3 Seconds (9.4-12.1)
[2021-08-26 01:23] LABS: Alanine Aminotransferase 31 Units/L (7-52); Albumin 2.6 g/dL (3.5-5.7); Alkaline Phosphatase 43 Units/L (34-104); Aspartate Amino Transferase 19 Units/L (13-39); BUN/Creatinine Ratio 40 (6-26); Bilirubin,Total 0.3 mg/dL (0.3-1.0); Blood Urea Nitrogen 27 mg/dL (8-23); Calcium 7.8 mg/dL (8.6-10.3); Carbon Dioxide 22 mEq/L (23-29); Chloride 103 mEq/L (98-107); Globulin 2.5 g/dL (2.4-3.5); Glucose 146 mg/dL (70-105); Osmolality,Calculated 278 (280-300); Potassium 3.8 mEq/L (3.5-5.1); Sodium 130 mEq/L (136-145); Total Protein 5.1 g/dL (6.4-8.9); eGFR For African Americans > 60 (> 60); eGFR For Non-African Americans > 60 (> 60)
[2021-08-26] MEDS: Budesonide Neb 0.5 MG/2 ML IH SCH ×2 (08:43→20:31)
[2021-08-26] MEDS ORDERED: dexAMETHasone 4 MG TABLET PO SCH (09:00)
[2021-08-26] MEDS: Fluconazole 100 MG TABLET PO SCH (09:56)
[2021-08-26] MEDS: Cholecalciferol (D-3) 1,000 UNIT (25MCG) TABLET PO SCH (09:57)
[2021-08-26] MEDS: Vitamin B Complex/Vit C/Vit E 1 EACH TABLET PO SCH (09:57)
[2021-08-26] MEDS: DilTIAZem CD (24hr) 120 MG CAP.ER.24H PO SCH (09:57)
[2021-08-26] MEDS: *HR* Amiodarone 200 MG TABLET PO SCH (09:57)
[2021-08-26] MEDS: Metoprolol 100 MG TABLET PO SCH ×2 (09:57→20:55)
[2021-08-26] MEDS: Melatonin 3 MG TABLET PO PRN (20:55)
[2021-08-26] MEDS ORDERED: Sennosides/Docusate Sodium TABLET PO PRN (21:03)
[2021-08-26 22:05] LABS: Bilirubin,Urine Negative (Negative); Blood,Urine Negative (Negative); Clarity,Urine Clear (Clear); Color,Urine Light-Yellow (Yellow); Glucose,Urine (UA) Normal (Normal); Ketones,Urine Negative (Negative); Leukocyte Esterase,Urine Negative (Negative); Nitrite,Urine Negative (Negative); PH,Urine 6.5 pH Units (5.0-8.0); Protein,Urine Negative (Neg-Trace); Specific Gravity,Urine 1.009 (1.010-1.025); Urobilinogen,Urine Normal (Normal)
[2021-08-27 07:49] VITALS: PULSE 75
[2021-08-27] MEDS: Budesonide Neb 0.5 MG/2 ML IH SCH ×2 (07:50→20:58)
[2021-08-27] MEDS: DilTIAZem CD (24hr) 120 MG CAP.ER.24H PO SCH (07:50)
[2021-08-27] MEDS: *HR* Amiodarone 200 MG TABLET PO SCH (07:50)
[2021-08-27] MEDS: Vitamin B Complex/Vit C/Vit E 1 EACH TABLET PO SCH (07:50)
[2021-08-27] MEDS: Cholecalciferol (D-3) 1,000 UNIT (25MCG) TABLET PO SCH (07:50)
[2021-08-27] MEDS: Fluconazole 100 MG TABLET PO SCH (07:50)
[2021-08-27] MEDS: Metoprolol 100 MG TABLET PO SCH ×2 (07:50→20:25)
[2021-08-27 08:26] LABS: Basophils % 0.2 %; Hematocrit 26.3 % (37.5-50.1); Hemoglobin 8.1 g/dL (12.9-16.9); Lymphocytes # 1.3 K/mcL (0.6-4.6); Lymphocytes % 5.3 %; Mean Corpuscular HGB Conc 30.8 g/dL (31.6-35.5); Mean Corpuscular Hemoglobin 28.9 pg (28.0-33.3); Mean Corpuscular Volume 93.9 fL (83.0-100.0); Mean Platelet Volume 8.8 fL (9.4-12.4); Monocytes # 1.4 K/mcL (0.0-1.3); Monocytes % 5.8 %; Neutrophils # 21.2 K/mcL (1.6-8.9); Platelet Count 445 K/mcL (140-400); Red Cell Distribution Width 17.4 % (11.5-14.5); Segmented Neutrophils % 86.7 %; White Blood Count 24.5 K/mcL (4.3-11.1)
[2021-08-27 08:28] LABS: Basophils # 0.1 K/mcL (0.0-0.2)
[2021-08-27 08:44] LABS: Alanine Aminotransferase 31 Units/L (7-52); Albumin 2.7 g/dL (3.5-5.7); Alkaline Phosphatase 45 Units/L (34-104); Aspartate Amino Transferase 19 Units/L (13-39); BUN/Creatinine Ratio 34 (6-26); Bilirubin,Total 0.4 mg/dL (0.3-1.0); Blood Urea Nitrogen 25 mg/dL (8-23); Calcium 8.3 mg/dL (8.6-10.3); Carbon Dioxide 27 mEq/L (23-29); Chloride 106 mEq/L (98-107); Globulin 2.8 g/dL (2.4-3.5); Glucose 91 mg/dL (70-105); Osmolality,Calculated 290 (280-300); Potassium 4.5 mEq/L (3.5-5.1); Sodium 138 mEq/L (136-145); Total Protein 5.5 g/dL (6.4-8.9); eGFR For African Americans > 60 (> 60); eGFR For Non-African Americans > 60 (> 60)
[2021-08-27 08:55] LABS: Anisocytosis 1+ (Not Present); Platelet Estimate Increased (Normal)
[2021-08-27 09:00] LABS: INR 3.2; Prothrombin Time 35.3 Seconds (9.4-12.1)
[2021-08-27 22:22] VITALS: BP 115/72; TEMP 97.9; O2SAT 94
[2021-08-27] MEDS: Melatonin 3 MG TABLET PO PRN (22:31)
== END 2021-08-27 23:45 | disposition other institution (70) | DRG 871 ==
LOC: EMEROOARM 13:33 → 2NNU 13:33 → SUATTDRO 17:50 → 2NNU 19:15 → 2NENU 08-24 23:09
PROVIDERS: ADMIT Hospitalist; ATTEND Family Medicine
PROC: ENDOEBX (2021-08-23 14:00)